=== PATIENT | male | born 1925 | race Caucasian/White ===

== ENCOUNTER → 2016-12-23 | Outpatient (CLI) | payer OTHER ==
[~2016-12-23] MED LIST: AMOX875T PO; Boost PO; CNT PO; DRGTP12 TD; ERGO500011 PO; HYDR-5688 PO; IMD2X PO; PRED10TA PO; RMR15 PO; TPRSR/25 PO
--- NOTE | 2016-12-23 15:11 | DIAGNOSTIC IMAGING REPORT ---
LEFT SHOULDER 3 VIEWS HISTORY: SHOULDER PAIN L COMPARISON: None. FINDINGS: No acute fracture or dislocation within the left shoulder. Calcifications within the supraspinatus tendon consistent with calcific tendinitis mild to moderate osteoarthritis within the glenohumeral and AC joints. Old, healed distal left clavicle fracture. IMPRESSION: 1. No acute fracture or dislocation. 2. Supraspinatus calcific tendinitis. 3. Moderate osteoarthritis. Electronically signed by: Migel Garcia M.D. 12/23/2016 3:10 PM Dictated Date/Time: 12/23/2016 3:09 PM
== END | disposition home or self-care (01) ==
LOC: C.RADPV 14:49
PROVIDERS: ATTEND Family Medicine
DX: M25.512 Pain in left shoulder (principal); M75.32 Calcific tendinitis of left shoulder; M19.012 Primary osteoarthritis, left shoulder

== ENCOUNTER → 2017-01-21 | Outpatient (CLI) | payer OTHER ==
[~2017-01-21] MED LIST changes: +OPTIRAY 320 IV PRN
[2017-01-21 09:07] LABS: BLOOD UREA NITROGEN 17 mg/dl (7-18)
--- NOTE | 2017-01-21 10:36 | DIAGNOSTIC IMAGING REPORT ---
CT ANGIOGRAM OF THE ABDOMEN AND PELVIS CLINICAL HISTORY: Abdominal aortic aneurysm. COMPARISON STUDY: CT angiogram of the abdomen and pelvis dated 02/12/2016. TECHNIQUE: Following the IV administration of 119 cc of Optiray 320, CT angiogram of the abdomen and pelvis was performed from the lung bases the proximal femora. Images are reviewed in the axial, sagittal, and coronal planes. 3-D MIPS images are created and assessed. IV contrast was administered without complication. CT DOSE: 274.66 mGy.cm FINDINGS: Lower chest: The heart is enlarged and without pericardial effusion. Emphysema is suggested in the lung bases. There is dependent atelectasis. No airspace consolidation or pleural effusion is seen. Liver: The contrast-enhanced liver is normal in size, contour, and attenuation. There is no intrahepatic or ductal dilatation. Gallbladder: Mildly distended and grossly unremarkable. Spleen: Normal in size and attenuation noting heterogeneous arterial phase enhancement. A 12 mm low-attenuation lesion in the spleen seen image #71 is unchanged and of doubtful significance. Pancreas: Mildly atrophic and grossly unremarkable. Adrenal glands: Unremarkable. Kidneys: The contrast enhanced kidneys demonstrate cortical atrophy and are without hydronephrosis. The kidneys enhance symmetrically. Abdominal aorta and iliac arteries: There is advanced atherosclerotic calcification of the abdominal aorta and iliac arteries. There is a large bilobed infrarenal abdominal aortic aneurysm. This measures 6.3 cm in AP diameter and 5.9 cm in transverse diameter. The aneurysm sac extends approximately 10 cm in length. No dissection is seen. The iliac arteries are not well opacified. There is aneurysmal dilatation of the common iliac arteries bilaterally. The right common iliac artery measures up to 3.1 cm and the left common iliac artery measures up to 2.0 cm. 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 The celiac trunk, superior mesenteric, and inferior mesenteric arteries are widely patent. Hepatic arterial anatomy is conventional. The splenic artery is patent. There are single bilateral renal arteries which are patent. There is less than 50% stenosis at the origin of the right renal artery. Bowel: There are postoperative changes from right hemicolectomy with ileocolic anastomosis. No bowel obstruction is seen. There is mild colonic diverticulosis without CT evidence of acute diverticulitis. Peritoneum: There is no intraperitoneal free air or abdominal ascites. Lymphadenopathy: None. Pelvic viscera: The prostate gland is diminutive and heterogeneous. Numerous brachytherapy seeds are noted. The bladder wall is thickened and trabeculated consistent with chronic outlet obstruction. Skeletal structures: The skeletal structures are osteopenic. Moderate lumbosacral spondylosis is observed. There are bilateral pars defects at L5 with minimal anterolisthesis at L5-S1. No lytic or blastic bony lesions are seen. Degenerative change is also seen in the sacroiliac joints. There are healed bilateral rib fractures. IMPRESSION: 1. Again seen is a large bilobed infrarenal abdominal aortic aneurysm as detailed above. This measures 6.3 x 5.9 cm, and has minimally increased in size from 02/12/2016 when it measured 5.9 x 5.1 cm at a comparable level. 2. 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 3. 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 4. Cardiomegaly and emphysema. 5. There are postoperative changes from right hemicolectomy with ileocolic anastomosis. No bowel obstruction is seen. 6. The bladder wall is thickened and trabeculated, likely related to chronic outlet obstruction. Electronically signed by: Bart Eng M.D. 01/21/2017 10:34 AM Dictated Date/Time: 01/21/2017 9:40 AM
== END | disposition home or self-care (01) ==
LOC: C.CTS 08:22
PROVIDERS: ATTEND Family Medicine
DX: I71.4 Abdominal aortic aneurysm, without rupture (principal); I72.3 Aneurysm of iliac artery; I71.9 Aortic aneurysm of unspecified site, without rupture; I51.7 Cardiomegaly; J43.9 Emphysema, unspecified

== ENCOUNTER → 2017-04-13 | Outpatient (CLI) | payer OTHER ==
[~2017-04-13] MED LIST changes: +ERGO1CAP41 PO; -ERGO500011 PO; -OPTIRAY 320 IV PRN
[2017-04-13 18:02] LABS: ALT/SGPT 33 U/L (12-78); AST/SGOT 23 U/L (15-37); BLOOD UREA NITROGEN 21 mg/dl (7-18); BUN/CREATININE RATIO 19.1 (10-20); CALCIUM 8.9 mg/dl (8.5-10.1); CARBON DIOXIDE 25 mmol/L (21-32); CHLORIDE 105 mmol/L (98-107); GLUCOSE 116 mg/dl (70-99); POTASSIUM 3.8 mmol/L (3.5-5.1); SODIUM 138 mmol/L (136-145)
[2017-04-13 18:12] LABS: ALB/GLOB RATIO 0.6 (0.9-2); ALKALINE PHOSPHATASE 539 U/L (45-117)
--- NOTE | 2017-04-21 12:49 | CODING QUERY MEDICAL NECESSITY ---
CQSUPPORTING DIAGNOSIS NEEDED A supporting diagnosis is required for the test/procedure performed on this patient in order for us to be reimbursed by the patient's insurance. Please provide a supporting diagnosis for the following test/procedure listed below next to the test name along with your signature. *If there is no additional diagnosis for this patient that would support the following test/procedure please document that below next to the test/procedure. Test(s)/Procedure(s) that require a supporting diagnosis: DOS 04/13/17 VITAMIN B12 TEST Provider Signature: Date: Thank you Tata Ron [facility] Information Management Once completed, please kindly fax back to [phone] For questions please call [phone]
== END | disposition home or self-care (01) ==
LOC: C.LABPVFM 16:06
PROVIDERS: ATTEND Family Medicine
DX: F09 Unspecified mental disorder due to known physiological condition (principal); R39.9 Unspecified symptoms and signs involving the genitourinary system; R82.99 Other abnormal findings in urine

== ENCOUNTER → 2017-04-15 | Outpatient (CLI) | payer OTHER ==
[2017-04-21 05:32] LABS: ALK PHOS ISO-INTESTINE 0 % (1-24); ALK PHOS ISO-LIVER 83 % (25-69); ALK PHOS ISO-PLACENTAL 0 % (<=0); ALK PHOS MACROHEPATIC 0 % (<=0); ALP (ALK P'TASE) 349 U/L (40-115)
[2017-04-26 11:09] LABS: O&P SOURCE OTHER-STOOL
== END | disposition home or self-care (01) ==
LOC: C.LABPVFM 12:56
PROVIDERS: ATTEND Family Medicine
DX: R19.7 Diarrhea, unspecified (principal); R79.89 Other specified abnormal findings of blood chemistry

== ENCOUNTER 2017-04-18 10:20 | Inpatient (IN) | payer OTHER ==
[~2017-04-18] VITALS: Ht 167.6 cm; Wt 52.2 kg
[2017-04-18] MEDS ORDERED: SODIUM CHLORIDE 0.9% 1000ML 1,000 ML IV STA (10:41)
--- NOTE | 2017-04-18 10:47 | EMERGENCY ROOM VISIT NOTE ---
History Report prepared by Martha: Alycia Hampton Under the Supervision of: Dr. Asim Cain M.D. First contact with patient: 10:35 Chief Complaint: GI ASSESSMENT Stated Complaint: NOT EATING,DRINKING, DIARRHEA,CHEST/ABD PAIN Nursing Triage Summary: pt daughter reports that pt has hx of dementia and has had diarrhea x 1 month. pt has seen pcp and had testing completed as out patient. History of Present Illness The patient is an 89 year old male who presents to the Emergency Room with complaints of persistent diarrhea for the past month. He currently rates his discomfort as a 6/10 in severity. Per the patient's daughter in law, the patient has had a decrease in appetite and fluid intake. She states that the patient has had blood work and stool samples taken, noting that the stool sample was normal, but something was noted about his kidney function. The patient's daughter in law states that the patient was told to drink more fluids. She states that the patient's stool and urine have both been red. The patient reports abdominal pain today and his daughter in law notes that he has been short of breath recently. The patient reports a history of previous hernia repairs, but denies any history of an appendectomy or cholecystectomy. The patient's daughter in law notes that the patient has a history of colon cancer, prostate cancer, and AAA. Source of History: patient, family (daughter in law) Onset: past month Position: other (global) Symptom Intensity: 6/10 Quality: other (diarrhea) Timing: other (persistent) Associated Symptoms: + SOB, + abdominal pain Note: Associated Symptoms: red stool and red urine, decrease in fluid intake and appetite. Review of Systems See HPI for pertinent positives & negatives. A total of 10 systems reviewed and were otherwise negative. Past Medical & Surgical Medical Problems: (1) Cataract Nos (2) colitis (3) Diverticulosis Colon (W/O Ment Of Hemorrhage) (4) Hx-Prostatic Malignancy (5) Ulcerative Colitis, Unspecified Family History Noncontributory secondary to age. Social History Smoking Status: Former Smoker Marital Status: Housing Status: lives with family Occupation Status: employed Current/Historical Medications Scheduled Metoprolol Succinate (Metoprolol Succinate ER), 25 MG PO DAILY Allergies Coded Allergies: No Known Allergies (Verified , 04/18/17) Physical Exam Vital Signs Date Time Temp Pulse Resp B/P (MAP) Pulse Ox O2 Delivery O2 Flow Rate FiO2 04/18/17 13:30 82 16 114/67 95 Room Air 04/18/17 13:00 97 Room Air 04/18/17 12:10 85 04/18/17 11:22 82 04/18/17 10:27 37.0 108 20 101/63 97 Room Air Physical Exam GENERAL: Patient is elderly, appearing, cachectic, unwell appearing HEENT: No acute trauma, normocephalic atraumatic, dehydrating appearing, no nasal congestion, no scleral icterus. NECK: No stridor, no adenopathy, no meningismus, trachea is midline. LUNGS: No dyspnea. Clear to auscultation and equal bilaterally. No wheeze, no rhonchi. HEART: Mildly tachycardic rate, regular rhythm. Mild systolic murmur. No rubs , gallops appreciated. ABDOMEN: Large pulsatile abdominal mass, mild tenderness to light palpation of the entire abdomen. Soft, bowel sounds positive, no peritonitis. BACK: No midline tenderness, no CVA tenderness EXTREMITIES: Normal motion all extremities, no cyanosis, no edema. NEUROLOGIC: Alert and oriented, no acute motor or sensory deficits, no focal weakness, cranial nerves grossly intact. SKIN: No rash, no jaundice, no diaphoresis. Medical Decision & Procedures ER Provider Diagnostic Interpretation: Radiology results and stated below per my review and radiologist interpretation: CHEST ONE VIEW PORTABLE HISTORY: 89 years-old Male Generalized Weakness acute chest and abdominal pain with weakness and diarrhea. Patient refuses to eat or drink. COMPARISON: CTA 01/21/2017, chest radiograph 02/21/2014 TECHNIQUE: Portable upright AP view of the chest FINDINGS: Cardiac silhouette is within normal limits. There is atherosclerosis of the aorta. No pneumothorax, pleural effusion or focal airspace consolidation. Suture material is seen at the level of the left lung base with subsegmental pleural parenchymal scarring. Degenerative changes are seen about the bilateral shoulders. IMPRESSION: No acute cardiopulmonary process. The above report was generated using voice recognition software. It may contain grammatical, syntax or spelling errors. Electronically signed by: Mitchell Rollins M.D. 04/18/2017 11:21 AM Dictated Date/Time: 04/18/2017 11:19 AM ABD/PELVIS IV CONTRAST ONLY HISTORY: 89 years-old Male diffuse abdominal pain. h/o colon ca acute generalized abdominal pain with history of colon cancer. Initial exam. COMPARISON: CT angiogram 01/21/2017. TECHNIQUE: Multiple axial CT images of the abdomen and pelvis were obtained following the intravenous administration of 93 mL Optiray 320. A dose lowering technique was used consistent with the principals of TONI. FINDINGS: Study is limited secondary to streak and beam arcing artifact from positioning of patient's upper extremities across the midabdomen and additionally secondary to patient motion. There is mild dependent bibasilar atelectasis. There is a calcified granuloma of the inferior segment lingula. No pneumoperitoneum is identified. Inferior cardiac chambers are mildly enlarged. Aortic annular calcifications are present. The liver and adrenal glands are within normal limits. Unchanged nonspecific likely benign 1.2 cm low attenuating circumscribed lesion of the mid spleen is again seen. Gallbladder is mildly distended without evidence of cholelithiasis. The common bile duct is mildly dilated, 10 mm which is nonspecific. Low attenuating lesions of the kidneys bilaterally, most which are subcentimeter suggest cysts. Ureters and urinary bladder are unremarkable. brachy therapy seeds are seen within the prostate. Extensive mixed plaquing involves the abdominal aorta. Bilobed fusiform aneurysmal dilation of the infrarenal bone aorta is again seen measuring up to 6.5 x 6.2 cm, previously 6.4 x 6.0 cm, likely stable in size allowing for difference in technique. No evidence of aneurysmal rupture. In mucosal dilation of the right common iliac artery, 3.0 cm and aneurysmal dilation of the internal iliac artery, 3.3 cm both appear unchanged. Additionally, there is unchanged mild intervertebral dilation of the celiac trunk. There is no bulky retroperitoneal adenopathy. There is no small bowel obstruction. Moderate circumferential wall thickening with mucosal hyperemia is noted involving the majority of the colon, most severe within the descending and rectosigmoid portions. There has been prior right hemicolectomy with ileocolic anastomosis. Air fluid levels are seen throughout the colon suggesting diarrheal state. Mild adenopathy of the upper abdomen measuring up to 6 mm in short axis may be reactive. There is moderate associated inflammatory stranding. Soft tissues are unremarkable. Multilevel severe degenerative changes of the spine are seen. Bones are osteopenic. Healed bilateral rib fractures noted. IMPRESSION: 1. Moderate circumferential wall thickening with mucosal hyperemia and surrounding inflammatory stranding involving the majority of the colon, greatest within the descending and sigmoid portions is compatible with colitis, likely from infectious or inflammatory etiology. Associated air-fluid levels throughout the colon suggests concomitant diarrheal state. 2. No pneumoperitoneum or bowel obstruction. 3. 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 This appears stable from comparison study 01/21/2017. 4. Prior right hemicolectomy with ileocolic anastomosis. 5. Additional incidental findings as above. The above report was generated using voice recognition software. It may contain grammatical, syntax or spelling errors. Electronically signed by: Mitchell Rollins M.D. 04/18/2017 12:07 PM Dictated Date/Time: 04/18/2017 11:53 AM Laboratory Results 04/18/17 11:02 Red Blood Count 3.55, Mean Corpuscular Volume 92.7, Mean Corpuscular Hemoglobin 31.5, Mean Corpuscular Hemoglobin Concent 34.0, Mean Platelet Volume 8.3, Neutrophils (%) (Auto) 77.1, Lymphocytes (%) (Auto) 10.3, Monocytes (%) (Auto) 11.6, Eosinophils (%) (Auto) 0.1, Basophils (%) (Auto) 0.1, Neutrophils # (Auto ) 10.14, Lymphocytes # (Auto) 1.36, Monocytes # (Auto) 1.53, Eosinophils # (Auto ) 0.01, Basophils # (Auto) 0.01 04/18/17 10:55 Test 04/18/17 10:55 04/18/17 11:02 04/18/17 11:04 Est Creatinine Clear Calc Drug Dose 38.8 ml/min Estimated GFR () 78.9 Estimated GFR (Non- 68.1 BUN/Creatinine Ratio 21.3 (10-20) Calcium Level 8.1 mg/dl (8.5-10.1) Phosphorus Level 3.1 mg/dl (2.5-4.9) Magnesium Level 2.1 mg/dl (1.8-2.4) Total Bilirubin 0.8 mg/dl (0.2-1) Direct Bilirubin 0.4 mg/dl (0-0.2) Aspartate Amino Transf (AST/SGOT) 11 U/L (15-37) Alanine Aminotransferase (ALT/SGPT) 14 U/L (12-78) Alkaline Phosphatase 261 U/L (45-117) Total Creatine Kinase 36 U/L (39-308) Creatine Kinase MB 1.2 ng/ml (0.5-3.6) Creatine Kinase MB Ratio 3.3 (0-3.0) Troponin I < 0.015 ng/ml (0-0.045) Total Protein 5.7 gm/dl (6.4-8.2) Albumin 1.8 gm/dl (3.4-5.0) Lipase 48 U/L (73-393) Thyroid Stimulating Hormone (TSH) 1.000 uIu/ml (0.300-4.500) White Blood Count 13.16 K/uL (4.8-10.8) Red Blood Count 3.55 M/uL (4.7-6.1) Hemoglobin 11.2 g/dL (14.0-18.0) Hematocrit 32.9 % (42-52) Mean Corpuscular Volume 92.7 fL (80-100) Mean Corpuscular Hemoglobin 31.5 pg (25-34) Mean Corpuscular Hemoglobin Concent 34.0 g/dl (32-36) Platelet Count 388 K/uL (130-400) Mean Platelet Volume 8.3 fL (7.4-10.4) Neutrophils (%) (Auto) 77.1 % Lymphocytes (%) (Auto) 10.3 % Monocytes (%) (Auto) 11.6 % Eosinophils (%) (Auto) 0.1 % Basophils (%) (Auto) 0.1 % Neutrophils # (Auto) 10.14 K/uL (1.4-6.5) Lymphocytes # (Auto) 1.36 K/uL (1.2-3.4) Monocytes # (Auto) 1.53 K/uL (0.11-0.59) Eosinophils # (Auto) 0.01 K/uL (0-0.5) Basophils # (Auto) 0.01 K/uL (0-0.2) RDW Standard Deviation 48.5 fL (36.4-46.3) RDW Coefficient of Variation 14.3 % (11.5-14.5) Immature Granulocyte % (Auto) 0.8 % Immature Granulocyte # (Auto) 0.11 K/uL (0.00-0.02) Toxic Granulation 3+ Dohle Bodies 2+ Prothrombin Time 11.8 SECONDS (9.0-12.0) Prothromb Time International Ratio 1.1 (0.9-1.1) Activated Partial Thromboplast Time 32.7 SECONDS (21.0-31.0) Partial Thromboplastin Ratio 1.3 Bedside Hemoglobin 11.2 g/dl (14.0-18.0) Bedside Hematocrit 33 % (42-52) Bedside Sodium 136 mEq/L (135-144) Bedside Potassium 3.4 mEq/L (3.3-5.0) Bedside Chloride 101 mEq/L (101-112) Bedside Total CO2 22 mEq/l (24-31) Anion Gap 17.0 mmol/L (16-25) Bedside Blood Urea Nitrogen 20 mg/dl (7-18) Bedside Creatinine 1.1 mg/dl (0.6-1.3) Bedside Glucose (other) 121 mg/dl (70-99) Bedside Ionized Calcium (Rosemary) 1.16 mmol/l (1.12-1.32) Laboratory results as reviewed by me. Medications Administered Medications (Trade) Dose Ordered Sig/Joey Route Start Time Stop Time Status Last Admin Dose Admin Sodium Chloride 1,000 ml @ 999 mls/hr Q1H1M STAT IV 04/18/17 10:41 04/18/17 11:41 DC 04/18/17 11:21 999 MLS/HR ECG Indication: abdominal pain, weakness Rate (beats per minute): 86 Rhythm: normal sinus Findings: PVC, no acute ischemic change ED Course 1036: The patient was evaluated in room B10. A complete history and physical exam was performed. 1041: Ordered Sodium Chloride 1000 ml @ 999 mls/hr IV. 1223: I reevaluated the patient and he is unchanged. I discussed all the exam findings with him and his family. I discussed home vs. inpatient management with the patient and his family and they would like to discuss the case with the hospitalist. 1234: I discussed the patients case with Dr. Ferguson [facility] [place]. He is going to come evaluate the patient. Medical Decision Differential: Sepsis, Infectious (UTI/Pneumonia/Meningitis/etc), Metabolic/ Electrolyte Abnormality, Cardiac, Hepatic, Endocrine, Toxicologic, Neurologic, amongst other pathologies entertained. 89 yr old cachectic unhealthy male with some dementia [place]. Daughter in law is not comfortable with him at home and notes that he is not eating, which I agree with her. His albumen is quite low confirming his poor nutritional status. He is dehydrated and likely will get worse given colitis. Just had negative Cdiff study. Without significant wbc elevation nor fever this is more likely viral but will need further monitoring/evaluation. Given his such poor status I do not feel that placement at this is time and that bringing him in first is necessary to tune up. Daughter in law agreeable to this plan. AAA unchanged. Medication Reconcilliation Current Medication List: was personally reviewed by me Blood Pressure Screening Patient's blood pressure: Normal blood pressure Blood pressure disposition: Did not require urgent referral Consults Time Called: 1227 Consulting Physician: LILLI Hsu Returned Call: 1234 I discussed the patients case with LILLI Hsu. He is going to come evaluate the patient. Impression Primary Impression: Cachexia Additional Impressions: Dehydration Malnutrition Failure to thrive Colitis Scribe Attestation The scribe's documentation has been prepared under my direction and personally reviewed by me in its entirety. I confirm that the note above accurately reflects all work, treatment, procedures, and medical decision making performed by me. Departure Information Dispostion Being Evaluated By Hospitalist Referrals Jn Restrepo M.D. (PCP) Problem Qualifiers
[2017-04-18] MEDS ORDERED: OPTIRAY 320 IV PRN (11:00)
[2017-04-18] MEDS ORDERED: TPRSR/25 PO (11:02)
[2017-04-18 11:10] LABS: HEMATOCRIT 32.9 % (42-52); MEAN CELL VOLUME 92.7 fL (80-100); MEAN CORPUSCULAR HEMOGLOBIN 31.5 pg (25-34); MEAN PLATELET VOLUME 8.3 fL (7.4-10.4); PLATELET COUNT 388 K/uL (130-400); RED BLOOD COUNT 3.55 M/uL (4.7-6.1); WHITE BLOOD COUNT 13.16 K/uL (4.8-10.8)
[2017-04-18 11:18] LABS: INR 1.1 (0.9-1.1); PARTIAL THROMBOPLASTIN RATIO 1.3; PROTHROMBIN TIME (PATIENT) 11.8 SECONDS (9.0-12.0)
[2017-04-18 11:21] LABS: ISTAT CREATININE 1.1 mg/dl (0.6-1.3); ISTAT HEMOGLOBIN 11.2 g/dl (14.0-18.0); ISTAT IONIZED CALCIUM 1.16 mmol/l (1.12-1.32)
--- NOTE | 2017-04-18 11:23 | DIAGNOSTIC IMAGING REPORT ---
CHEST ONE VIEW PORTABLE HISTORY: 89 years-old Male Generalized Weakness acute chest and abdominal pain with weakness and diarrhea. Patient refuses to eat or drink. COMPARISON: CTA 01/21/2017, chest radiograph 02/21/2014 TECHNIQUE: Portable upright AP view of the chest FINDINGS: Cardiac silhouette is within normal limits. There is atherosclerosis of the aorta. No pneumothorax, pleural effusion or focal airspace consolidation. Suture material is seen at the level of the left lung base with subsegmental pleural parenchymal scarring. Degenerative changes are seen about the bilateral shoulders. IMPRESSION: No acute cardiopulmonary process. The above report was generated using voice recognition software. It may contain grammatical, syntax or spelling errors. Electronically signed by: Mitchell Rollins M.D. 04/18/2017 11:21 AM Dictated Date/Time: 04/18/2017 11:19 AM
[2017-04-18 11:29] LABS: ALT/SGPT 14 U/L (12-78); AST/SGOT 11 U/L (15-37); BLOOD UREA NITROGEN 21 mg/dl (7-18); BUN/CREATININE RATIO 21.3 (10-20); CALCIUM 8.1 mg/dl (8.5-10.1); CARBON DIOXIDE 24 mmol/L (21-32); CHLORIDE 106 mmol/L (98-107); CREATININE 0.98 mg/dl (0.60-1.40); GLUCOSE 120 mg/dl (70-99); MAGNESIUM 2.1 mg/dl (1.8-2.4); POTASSIUM 3.4 mmol/L (3.5-5.1); SODIUM 137 mmol/L (136-145)
[2017-04-18 11:35] LABS: BASO % 0.1 %; BASO ABS # 0.01 K/uL (0-0.2); COMPLETE YES; DOHLE BODIES 2+; EOS % 0.1 %; IG% 0.8 %; LYMPH % 10.3 %; LYMPH ABS # 1.36 K/uL (1.2-3.4); MONO % 11.6 %; NEUT % 77.1 %; TOXIC GRANULATION 3+
[2017-04-18 11:40] LABS: ALKALINE PHOSPHATASE 261 U/L (45-117); CKMB/CK RATIO 3.3 (0-3.0); PHOSPHORUS 3.1 mg/dl (2.5-4.9)
--- NOTE | 2017-04-18 12:08 | DIAGNOSTIC IMAGING REPORT ---
ABD/PELVIS IV CONTRAST ONLY HISTORY: 89 years-old Male diffuse abdominal pain. h/o colon ca acute generalized abdominal pain with history of colon cancer. Initial exam. COMPARISON: CT angiogram 01/21/2017. TECHNIQUE: Multiple axial CT images of the abdomen and pelvis were obtained following the intravenous administration of 93 mL Optiray 320. A dose lowering technique was used consistent with the principals of TONI. FINDINGS: Study is limited secondary to streak and beam arcing artifact from positioning of patient's upper extremities across the midabdomen and additionally secondary to patient motion. There is mild dependent bibasilar atelectasis. There is a calcified granuloma of the inferior segment lingula. No pneumoperitoneum is identified. Inferior cardiac chambers are mildly enlarged. Aortic annular calcifications are present. The liver and adrenal glands are within normal limits. Unchanged nonspecific likely benign 1.2 cm low attenuating circumscribed lesion of the mid spleen is again seen. Gallbladder is mildly distended without evidence of cholelithiasis. The common bile duct is mildly dilated, 10 mm which is nonspecific. Low attenuating lesions of the kidneys bilaterally, most which are subcentimeter suggest cysts. Ureters and urinary bladder are unremarkable. brachy therapy seeds are seen within the prostate. Extensive mixed plaquing involves the abdominal aorta. Bilobed fusiform aneurysmal dilation of the infrarenal bone aorta is again seen measuring up to 6.5 x 6.2 cm, previously 6.4 x 6.0 cm, likely stable in size allowing for difference in technique. No evidence of aneurysmal rupture. In mucosal dilation of the right common iliac artery, 3.0 cm and aneurysmal dilation of the internal iliac artery, 3.3 cm both appear unchanged. Additionally, there is unchanged mild intervertebral dilation of the celiac trunk. There is no bulky retroperitoneal adenopathy. There is no small bowel obstruction. Moderate circumferential wall thickening with mucosal hyperemia is noted involving the majority of the colon, most severe within the descending and rectosigmoid portions. There has been prior right hemicolectomy with ileocolic anastomosis. Air fluid levels are seen throughout the colon suggesting diarrheal state. Mild adenopathy of the upper abdomen measuring up to 6 mm in short axis may be reactive. There is moderate associated inflammatory stranding. Soft tissues are unremarkable. Multilevel severe degenerative changes of the spine are seen. Bones are osteopenic. Healed bilateral rib fractures noted. IMPRESSION: 1. Moderate circumferential wall thickening with mucosal hyperemia and surrounding inflammatory stranding involving the majority of the colon, greatest within the descending and sigmoid portions is compatible with colitis, likely from infectious or inflammatory etiology. Associated air-fluid levels throughout the colon suggests concomitant diarrheal state. 2. No pneumoperitoneum or bowel obstruction. 3. 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 This appears stable from comparison study 01/21/2017. 4. Prior right hemicolectomy with ileocolic anastomosis. 5. Additional incidental findings as above. The above report was generated using voice recognition software. It may contain grammatical, syntax or spelling errors. Electronically signed by: Mitchell Rollins M.D. 04/18/2017 12:07 PM Dictated Date/Time: 04/18/2017 11:53 AM
[2017-04-18 13:00] VITALS: O2SAT 97; Ht 167.6 cm; Wt 52.2 kg
[2017-04-18] MEDS ORDERED: ALUMINUM/MAGNESIUM/SIMETH (MAALOX MAX) 30 ML UDC PO PRN (14:00)
[2017-04-18] MEDS ORDERED: MAGNESIUM HYDROXIDE SUSP 30 ML UDC PO PRN (14:00)
[2017-04-18 14:18] LABS: CHOLESTEROL/HDL RATIO 3.3
--- NOTE | 2017-04-18 14:47 | History and Physical ---
History & Physical Date & Time of Service: Apr 18, 2017 at 14:00 Chief Complaint: Not Eating,Drinking, Diarrhea,Chest/Abd Pain Primary Care Physician: Jn Restrepo M.D. History of Present Illness Source: patient, family 11-year-old male with past medical history of the ulcerative colitis in the 1970s colon cancer in 2003 status post resection, 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 Patient also has history of prostate cancer status post seeding. [place]. About 1 week ago he was taking to ER due to change in color of the urine. Initial workup was negative and he was advised to drink more fluids and eat as much as he can. Daughter reported that he has been going to the bathroom with diarrhea about 10 times every day for the past month. no blood in stool was detected. Stool C. difficile and stool cultures were negative on April 15. In the ED patient is a poor historian due to Dementia. His daughter at his bedside she was giving all the history. ED physician requested a CT and abdomen with contrast that revealed thickened colon wall wall/colitis. Patient will be admitted for further evaluation and management/IV hydration. Social History Smoking Status: Former Smoker Marital Status: Housing status: lives with family Occupational Status: employed Immunizations History of Influenza Vaccine: Yes Influenza Vaccine Date: May 16, 2010 History of Tetanus Vaccine?: No History of Pneumococcal: No History of Hepatitis B Vaccine: No Multi-Drug Resistant Organisms History of MDRO: No Allergies Coded Allergies: No Known Allergies (Verified , 04/18/17) Home Medications Scheduled Metoprolol Succinate (Metoprolol Succinate ER), 25 MG PO DAILY Review of Systems Constitutional: + weakness, + fatigue, No fever, No chills, No sweats, No weight loss, No problem reported ENT: No hearing loss, No unusual epistaxis, No nasal symptoms, No sore throat, No tinnitus, No dental problems, No trouble swallowing, No problem reported Respiratory: No cough, No sputum, No wheezing, No shortness of breath, No dyspnea on exertion, No dyspnea at rest, No hemoptysis, No problem reported Cardiovascular: + chest pain, No orthopnea, No PND, No edema, No claudication, No palpitations, No problem reported Abdomen: + pain, + diarrhea, No nausea, No vomiting, No constipation, No GI bleeding, No problem reported Musculoskeletal: No joint pain, No muscle pain, No swelling, No calf pain, No problem reported Genitourinary - Male: No hematuria, No dysuria, No urinary frequency, No urinary urgency, No urinary hesitancy, No urinary retention, No urinary incontinence, No penile discharge, No lesions, No impotence, No problem reported Neurologic: No memory loss, No paralysis, No weakness, No numbness/tingling, No vertigo, No balance problems, No problem reported Psychiatric: No depression symptoms, No anhedonism, No anxiety, No insomnia, No substance abuse, No problem reported Endocrine: No fatigue, No excessive thirst, No excessive urination, No problem reported Hematologic / Lymphatic: No abnormal bleeding/bruising, No clotting problems, No swollen lymph nodes, No night sweats, No problem reported Integumentary: No rash, No itch, No new/changing skin lesions, No color change , No bleeding, No problem reported Allergic / Immunologic: No environmental allergies, No seasonal allergies, No pet sensitivities, No food allergies, No hives, No frequent infections, No poor healing, No prolonged convalescence, No problem reported Physical Exam Vital Signs Date Time Temp Pulse Resp B/P (MAP) Pulse Ox O2 Delivery O2 Flow Rate FiO2 04/18/17 13:30 82 16 114/67 95 Room Air 04/18/17 13:00 97 Room Air 04/18/17 12:10 85 04/18/17 11:22 82 04/18/17 10:27 37.0 108 20 101/63 97 Room Air General Appearance: no apparent distress, + cachetic Head: normocephalic, atraumatic Eyes: normal inspection, EOMI ENT: normal ENT inspection, hearing grossly normal Neck: supple Respiratory/Chest: chest non-tender, lungs clear, normal breath sounds, no respiratory distress, no accessory muscle use Cardiovascular: regular rate, rhythm, no edema, + systolic murmur (2/6 soft) Abdomen/GI: normal bowel sounds, non tender, soft, + pertinent finding ( pulsatile mass) Back: normal inspection, no CVA tenderness, no muscle spasm, normal range of motion Extremities/Musculoskelatal: normal inspection, no calf tenderness, normal capillary refill, no pedal edema Neurologic/Psych: sweet potato disintegrator II-XII nml as tested, no motor/sensory deficits, alert, normal mood/affect, normal reflexes, + pertinent finding (oriented X 2 with short term memory loss) Skin: normal color, warm/dry, no rash Diagnostics Laboratory Results Results Past 24 Hours Test 04/18/17 10:55 04/18/17 11:02 04/18/17 11:04 04/18/17 13:47 Range/Units Sodium Level 137 136-145 mmol/L Potassium Level 3.4 3.5-5.1 mmol/L Chloride Level 106 98-107 mmol/L Carbon Dioxide Level 24 21-32 mmol/L Anion Gap 7.0 17.0 16-25 mmol/L Blood Urea Nitrogen 21 7-18 mg/dl Creatinine 0.98 0.60-1.40 mg/dl Est Creatinine Clear Calc Drug Dose 38.8 ml/min Estimated GFR () 78.9 Estimated GFR (Non- 68.1 BUN/Creatinine Ratio 21.3 10-20 Random Glucose 120 70-99 mg/dl Calcium Level 8.1 8.5-10.1 mg/dl Phosphorus Level 3.1 2.5-4.9 mg/dl Magnesium Level 2.1 1.8-2.4 mg/dl Total Bilirubin 0.8 0.2-1 mg/dl Direct Bilirubin 0.4 0-0.2 mg/dl Aspartate Amino Transf (AST/SGOT) 11 15-37 U/L Alanine Aminotransferase (ALT/SGPT) 14 12-78 U/L Alkaline Phosphatase 261 45-117 U/L Total Creatine Kinase 36 39-308 U/L Creatine Kinase MB 1.2 0.5-3.6 ng/ml Creatine Kinase MB Ratio 3.3 0-3.0 Troponin I < 0.015 0-0.045 ng/ml Total Protein 5.7 6.4-8.2 gm/dl Albumin 1.8 3.4-5.0 gm/dl Lipase 48 73-393 U/L Thyroid Stimulating Hormone (TSH) 1.000 0.300-4.500 uIu/ml White Blood Count 13.16 4.8-10.8 K/uL Red Blood Count 3.55 4.7-6.1 M/uL Hemoglobin 11.2 14.0-18.0 g/dL Hematocrit 32.9 42-52 % Mean Corpuscular Volume 92.7 80-100 fL Mean Corpuscular Hemoglobin 31.5 25-34 pg Mean Corpuscular Hemoglobin Concent 34.0 32-36 g/dl Platelet Count 388 130-400 K/uL Mean Platelet Volume 8.3 7.4-10.4 fL Neutrophils (%) (Auto) 77.1 % Lymphocytes (%) (Auto) 10.3 % Monocytes (%) (Auto) 11.6 % Eosinophils (%) (Auto) 0.1 % Basophils (%) (Auto) 0.1 % Neutrophils # (Auto) 10.14 1.4-6.5 K/uL Lymphocytes # (Auto) 1.36 1.2-3.4 K/uL Monocytes # (Auto) 1.53 0.11-0.59 K/uL Eosinophils # (Auto) 0.01 0-0.5 K/uL Basophils # (Auto) 0.01 0-0.2 K/uL RDW Standard Deviation 48.5 36.4-46.3 fL RDW Coefficient of Variation 14.3 11.5-14.5 % Immature Granulocyte % (Auto) 0.8 % Immature Granulocyte # (Auto) 0.11 0.00-0.02 K/uL Toxic Granulation 3+ Dohle Bodies 2+ Prothrombin Time 11.8 9.0-12.0 SECONDS Prothromb Time International Ratio 1.1 0.9-1.1 Activated Partial Thromboplast Time 32.7 21.0-31.0 SECONDS Partial Thromboplastin Ratio 1.3 Bedside Hemoglobin 11.2 14.0-18.0 g/dl Bedside Hematocrit 33 42-52 % Bedside Sodium 136 135-144 mEq/L Bedside Potassium 3.4 3.3-5.0 mEq/L Bedside Chloride 101 101-112 mEq/L Bedside Total CO2 22 24-31 mEq/l Bedside Blood Urea Nitrogen 20 7-18 mg/dl Bedside Creatinine 1.1 0.6-1.3 mg/dl Bedside Glucose (other) 121 70-99 mg/dl Bedside Ionized Calcium (Rosemary) 1.16 1.12-1.32 mmol/l Impression Assessment and Plan 89 years old man with past medical 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 Also has a large abdominal aortic aneurysm. Presented with intermittent chest pain and abdominal pain with diarrhea for the last month. beltre-Colitis, mainly in the descending colon Telemetry IV hydration Cipro/Flagyl Repeat stool studies including C. difficile Check blood cell and red blood cells in stool Chest pain rule out ACS Possible ischemia/history is limited unable to ensure his stable angina Plan serial cardiac enzymes 2D Echo of due to the presence of systolic murmur prefitter doors consult Severe protein calorie malnutrition Start patient on nutritional supplement AAA with extensive plaque, measured 6.5 x 6.2 cm, previously 6.4 x 6.0 cm today on 01/21/17 continue metoprolol start low dose lipitor ( D?W daughter ) Dyslipidemia, By history, patient is taking no medications Will obtain lipid panel Deep slight worsening in his AAA dimensions, will start low-dose of lipitor We will need to check CK and LFTs in 2 weeks as an outpatient Prostate cancer status post seeding Check urine analysis and urine culture Colon cancer status post resection 2003 Check occult blood in stool Arthritis Tylenol for pain History of hernia repair No obstructed or recurrent hernia on exam History of appendectomy No intestinal obstruction or adhesions on CT abdomen Patient is currently limited code , no intubation or CPR heparin SQ for DVT prophylaxis Advanced Directives Existing Living Will: Yes Existing Power of Mds Coordinator: Yes Resuscitation Status FULL NO CARDIOV/MECH MIHIR VTE Prophylaxis VTE Risk Assessment Done? Y/N: Yes Risk Level: Moderate Given or contraindicated: Unfractionated heparin SQ
[2017-04-18 14:58] VITALS: BP 130/71; PULSE 100; TEMP 36.9; O2SAT 96
[2017-04-18] MEDS: SODIUM CHLORIDE 0.9% 1000ML 1,000 ML IV SCH (15:21)
[2017-04-18 15:44] VITALS: BP 108/67; PULSE 92; TEMP 37; O2SAT 96
[2017-04-18 16:00] VITALS: O2SAT 96
[2017-04-18] MEDS: CIPROFLOXACIN / D5W 200 MG in PREMIXED IN D5W 100 ML IV SCH ×2 (16:20→20:45)
[2017-04-18] MEDS: ATORVASTATIN 10 MG TAB PO SCH (16:24)
[2017-04-18] MEDS: METRONIDAZOLE / NSS 500 MG in PREMIXED NSS 100 ML IV SCH ×2 (17:27→20:45)
[2017-04-18 19:38] VITALS: BP 117/71; PULSE 106; TEMP 37.1; O2SAT 94
[2017-04-18] MEDS: HEPARIN SOD 5000 UNIT/0.5 ML CARP SQ SCH (20:45)
[2017-04-18 21:36] LABS: MANUAL MICROSCOPIC REQUIRED? NO; REVIEW REQ? NO; URINE APPEARANCE CLEAR (CLEAR); URINE COLOR DK YELLOW; URINE NITRITE NEG (NEG); URINE SPECIFIC GRAVITY > 1.045 (1.000-1.030); UROBILINOGEN NEG (NEG); ZZUR CULT IF INDIC CLEAN CATCH NO
[2017-04-18 21:38] LABS: URINE BILIRUBIN NEG (NEG)
[2017-04-18 23:38] VITALS: BP 100/62; PULSE 106; TEMP 36.9; O2SAT 91
[2017-04-19] VITALS (12 sets, daily range): BP systolic 98–131; BP diastolic 62–73; PULSE 68–97; TEMP 36.6–37.2; O2SAT 93–96
[2017-04-19 03:42] LABS: HEMATOCRIT 33.5 % (42-52); MEAN CELL VOLUME 93.3 fL (80-100); MEAN CORPUSCULAR HEMOGLOBIN 30.1 pg (25-34); MEAN CORPUSCULAR HGB CONC 32.2 g/dl (32-36); MEAN PLATELET VOLUME 8.4 fL (7.4-10.4); PLATELET COUNT 399 K/uL (130-400); RED BLOOD COUNT 3.59 M/uL (4.7-6.1); WHITE BLOOD COUNT 15.22 K/uL (4.8-10.8)
[2017-04-19 04:09] LABS: ALT/SGPT 13 U/L (12-78); AST/SGOT 14 U/L (15-37); BLOOD UREA NITROGEN 19 mg/dl (7-18); BUN/CREATININE RATIO 21.9 (10-20); CALCIUM 7.8 mg/dl (8.5-10.1); CARBON DIOXIDE 22 mmol/L (21-32); CHLORIDE 110 mmol/L (98-107); CREATININE 0.85 mg/dl (0.60-1.40); GLUCOSE 127 mg/dl (70-99); MAGNESIUM 2.2 mg/dl (1.8-2.4); POTASSIUM 3.3 mmol/L (3.5-5.1); SODIUM 140 mmol/L (136-145)
[2017-04-19 04:16] LABS: ALB/GLOB RATIO 0.4 (0.9-2); ALKALINE PHOSPHATASE 222 U/L (45-117); PHOSPHORUS 2.4 mg/dl (2.5-4.9)
[2017-04-19 04:32] LABS: BASO % 0.1 %; BASO ABS # 0.01 K/uL (0-0.2); COMPLETE YES; DOHLE BODIES 1+; EOS % 0.1 %; IG% 0.5 %; LYMPH % 25.5 %; LYMPH ABS # 3.88 K/uL (1.2-3.4); NEUT % 64.8 %; POLYCHROMASIA 1+; TOXIC GRANULATION 1+
[2017-04-19] MEDS: CIPROFLOXACIN / D5W 200 MG in PREMIXED IN D5W 100 ML IV SCH ×2 (08:07→20:04)
[2017-04-19] MEDS: METOPROLOL SUCC 25MG EXT REL TAB PO SCH (08:08)
[2017-04-19] MEDS: ASPIRIN 81 MG ECTAB PO SCH (08:08)
[2017-04-19] MEDS: ATORVASTATIN 10 MG TAB PO SCH (08:08)
[2017-04-19] MEDS: HEPARIN SOD 5000 UNIT/0.5 ML CARP SQ SCH ×2 (08:11→20:08)
[2017-04-19] MEDS: METRONIDAZOLE / NSS 500 MG in PREMIXED NSS 100 ML IV SCH ×2 (08:11→20:04)
--- NOTE | 2017-04-19 08:52 | ECHOCARDIOGRAM REPORT ---
*NOTICE TO RECEIVING DEMOCRAT AGENCY This information is strictly Confidential and protected under [place] law. [place] law prohibits you from making any further disclosure of this information unless further disclosure is expressly permitted by the written consent of the person to whom it pertains or is authorized by law. A general authorization for the release of medical or other information is not sufficient for this purpose. Hospital accepts no responsibility if the information is made available to any other person, INCLUDING THE PATIENT. Interpretation Summary * Name: SALLY LAU Study Date: 04/19/2017 06:53 AM BP: 124/62 mmHg * Patient Location: C.2T\S\E217\S\1 HR: 100 * : 1925 (M/d/yyyy) Gender: Male Height: 66 in * Age: 89 yrs Ethnicity: CA Weight: 118 lb * Ordering Physician: Kelsey Walsh * Performed By: Cecilia Donald RDCS * * Reason For Study: Chest pain, systolic murmur * BSA: 1.6 m2 * Hyperdynamic left ventricular systolic function. * Left ventricular diastolic dysfunction. * Aortic valve sclerosis. * Mild aortic stenosis. * Mild tricuspid regurgitation. * Trace mitral regurgitation. * Trace aortic regurgitation. * Mildly elevated estimated right ventricular systolic pressure. * -- Conclusions -- * Aortic valve sclerosis moderate, without significant aortic valvular stenosis. Procedure Details * A complete two-dimensional transthoracic echocardiogram was performed (2D, M-mode, Doppler and color flow Doppler). Left Ventricle * The left ventricle is normal in size. * There is normal left ventricular wall thickness. * Ejection Fraction = >70 %. * The left ventricle is hyperdynamic. * A full diastolic examination was done with clinical findings of Class I diastolic dysfunction. * No regional wall motion abnormalities noted. Right Ventricle * The right ventricle is normal in size and function. * The right ventricular systolic function is normal as assessed by tricuspid annular plane systolic excursion (TAPSE) (normal >1.5 cm). Atria * The left atrial size is normal. * Right atrial size is normal. * No ASD detected; PFO is not assessed. Mitral Valve * There is mild mitral annular calcification. * There is no mitral valve stenosis. * There is trace mitral regurgitation. Tricuspid Valve * The tricuspid valve is normal. * There is no tricuspid stenosis. * There is mild tricuspid regurgitation. * Right ventricular systolic pressure is elevated at 30-40mmHg. Aortic Valve * The aortic valve is trileaflet. * Aortic valve sclerosis moderate, without significant aortic valvular stenosis. * No hemodynamically significant valvular aortic stenosis. * Aortic valve area was calculated at 1.7 cm\S\2 using the continuity equation. * Trace aortic regurgitation. Pulmonic Valve * The pulmonic valve is not well visualized. * The pulmonary valve is inadequately visualized, but the Doppler data is adequate for interpretation. * There is no pulmonic valvular stenosis. * There is no pulmonic valvular regurgitation. Great Vessels * The aortic root is normal size. Pericardium/Pleural * There is no pericardial effusion. Great Vessels * Normal inferior vena cava diameter and respiratory variation suggests normal central venous pressure. MMode 2D Measurements and Calculations IVSd 0.87 cm LVIDd 3.8 cm LVIDs 2.2 cm LVPWd 0.98 cm IVS/LVPW 0.88 FS 42.5 % EDV(Teich) 62.9 ml ESV(Teich) 16.2 ml EF(Teich) 74.3 % EDV(cubed) 55.9 ml ESV(cubed) 10.6 ml EF(cubed) 81.0 % LV mass(C)d 106.3 grams LV mass(C)dI 66.5 grams/m\S\2 CO(Teich) 2.1 l/min CI(Teich) 1.3 l/min/m\S\2 SV(Teich) 46.7 ml SI(Teich) 29.2 ml/m\S\2 CO(cubed) 2.0 l/min CI(cubed) 1.3 l/min/m\S\2 SV(cubed) 45.3 ml SI(cubed) 28.3 ml/m\S\2 Ao root diam 3.6 cm Ao root area 10.0 cm\S\2 ACS 1.2 cm LA dimension 3.0 cm asc Aorta Diam 3.3 cm LA/Ao 0.85 LVOT diam 2.0 cm LVOT area 3.2 cm\S\2 LVAd ap4 22.6 cm\S\2 LVLd ap4 7.2 cm EDV(MOD-sp4) 58.1 ml LVAs ap4 10.7 cm\S\2 LVLs ap4 5.8 cm ESV(MOD-sp4) 17.2 ml EF(MOD-sp4) 70.4 % LVAd ap2 21.5 cm\S\2 LVLd ap2 7.6 cm EDV(MOD-sp2) 50.8 ml LVAs ap2 10.4 cm\S\2 LVLs ap2 6.1 cm ESV(MOD-sp2) 15.0 ml EF(MOD-sp2) 70.5 % CO(MOD-sp4) 1.8 l/min CI(MOD-sp4) 1.2 l/min/m\S\2 SV(MOD-sp4) 40.9 ml SI(MOD-sp4) 25.6 ml/m\S\2 CO(MOD-sp2) 1.6 l/min CI(MOD-sp2) 1.0 l/min/m\S\2 SV(MOD-sp2) 35.8 ml SI(MOD-sp2) 22.4 ml/m\S\2 Doppler Measurements and Calculations MV E max balaji 92.6 cm/sec MV A max balaji 116.4 cm/sec MV E/A 0.80 Ao V2 max 153.6 cm/sec Ao max PG 9.4 mmHg Ao max PG (full) 6.7 mmHg KENZIE(V,A) 1.7 cm\S\2 KENZIE(V,D) 1.7 cm\S\2 LV V1 max PG 2.8 mmHg LV V1 max 83.4 cm/sec PA V2 max 145.2 cm/sec PA max PG 8.4 mmHg PA acc slope 821.0 cm/sec\S\2 PA acc time 0.09 sec TR max balaji 274.2 cm/sec PA pr(Accel) 39.4 mmHg
[2017-04-19] MEDS ORDERED: PNEUMOCOCCAL ADMINISTRATION CHARGE ONE (09:00)
[2017-04-19] MEDS ORDERED: PNEUMOCOCCAL POLYSACCHARIDES 25 MCG/0.5 ML VIAL/SYR IM. ONE (09:00)
[2017-04-19] MEDS: SODIUM CHLORIDE 0.9% 1000ML 1,000 ML IV SCH (09:47)
--- NOTE | 2017-04-19 13:16 | CARDIOLOGY CONSULTATION ---
DATE OF CONSULTATION: 04/19/2017 PRIMARY PHYSICIAN: Jn Restrepo MD REFERRING PHYSICIAN: Kelsey Castro MD CONSULTATION: Kings Reyes MD HISTORY OF PRESENT ILLNESS: The patient is an 89-year-old white male. History obtained from the patient, nursing staff, and the chart. The chart indicates that the patient has a history of dementia. At the time of my exam of the patient, he was oriented to name, place, months and year. He answered questions appropriately. He states that he has had 2-3 weeks of loose stools, decreased appetite, and decreased weight. He admits to me that he thinks he may have seen blood in his stools. He has a vaguely described diffuse abdominal discomfort. He does not report any change in the discomfort with bowel movements or meals. No nausea or vomiting. No fevers or chills. He has had decreased oral intake over the past few weeks. He states he has lost 10 pounds in the past 2-3 weeks. He has had episodes of postural lightheadedness over the past 2 weeks. He also states that he has decreased urine output. His urine is of a darker color than usual. He denies to me having had any chest pain. The chart reports that he had a complaint of chest pain, although it was not described in regards to character, intensity, duration, frequency, or precipitating factors. As stated above, the patient denies to me that he has had any chest pain over the past few weeks. He complains of fatigue and weakness over the past few weeks. No orthopnea or PND. No palpitations or syncope. PAST MEDICAL HISTORY: 1. Longstanding history of ulcerative colitis. 2. Status post transverse colon resection in 2003 for adenocarcinoma. 3. Longstanding history of aortic aneurysm and iliac artery aneurysms. The patient has previously declined surgical therapy for his vascular disease. 4. Dyslipidemia. 5. Prostate cancer treated with seeds. The patient denies any history of heart disease. PAST SURGICAL HISTORY: 1. Status post transverse colectomy in 2003. 2. Status post appendectomy. 3. Status post inguinal hernia repair. 4. Status post cataract surgery. SOCIAL HISTORY: The patient lives alone. He states that he is a . He does not smoke cigarettes or drink alcohol. The patient has 2 children. [id number] and son live nearby. Although, the patient does not smoke cigarettes at this time, there is a past history of cigarette smoking. FAMILY HISTORY: Positive for coronary artery disease. ALLERGIES AND ADVERSE DRUG REACTIONS: No known drug allergies. CURRENT MEDICATIONS: Aspirin 81 mg daily, metoprolol succinate ER 25 mg daily, subQ heparin 5000 units q. 12 hours, metronidazole 500 mg IV b.i.d., ciprofloxacin 200 mg IV b.i.d., atorvastatin 10 mg daily, normal saline 50 mL per hour, p.r.n. Maalox, and p.r.n. acetaminophen. REVIEW OF SYSTEMS: 1. As above. 2. Dry mouth. 3. Full dentures. 4. No other HEENT complaints. 5. No dysuria. Urinary incontinence. Urinary urgency. 6. No complaints of calf pain or swelling. No peripheral edema. 7. No complaints of leg pain. 8. No focal motor weakness. He does complain of diffuse weakness. 9. The patient states that he just wants to "move down the road." When this was discussed with him, he is implying that he is ready to . He does not want any aggressive medical measures performed. Specifically, he refuses any surgical invasive treatment for his vascular disease. PHYSICAL EXAMINATION: GENERAL: The patient is sitting up in his bed. No distress. He is cachectic. VITAL SIGNS: This morning with oral temperature 36.9, pulse 68, blood pressure 124/62, and pulse oximetry on room air 96%. HEAD: Frontal and temporal wasting. EYES: Pupils equal and round. Anicteric. Conjunctivae normal. No xanthelasma. MOUTH: Edentulous. Dry mucous membranes. NECK: Jugular venous pressure less than 5 cm. Carotids 2/2 on the right and 1/2 on the left. Normal upstroke. No bruits. LUNGS: Decreased breath sounds at the bases. Improved with deep breathing. No rales or wheezes. HEART: PMI not palpable. No lifts or heaves. Decreased heart sounds. The aortic valvular closing sound is present. A 1/6 systolic murmur at the left upper sternal border. No diastolic murmur. A 2/6 systolic murmur at the left lower sternal border and apex. No diastolic murmur or rub. ABDOMEN: Positive bowel sounds. No palpable masses or organomegaly. Easily palpable aorta. Diffuse mild tenderness. EXTREMITIES: No pretibial edema. No cyanosis or clubbing. PULSES: Dorsalis pedis and posterior tibial pulses were weakly palpable bilaterally. NEUROLOGIC: At time of my exam, the patient was alert. Oriented to month, year, name, and place. PSYCHIATRIC: Affect normal. DATA: Chest x-ray on admission and reviewed by me with no heart failure. No infiltrate. CT scan of the abdomen with 6.5 x 6.2 infrarenal abdominal aortic aneurysm. A 3-cm right common iliac artery aneurysm. No evidence of bowel obstruction. Colon with appearance consistent with colitis. No bowel obstruction. Prior right hemicolectomy. Ileocolic anastomosis. Stool for C. diff toxin negative. LABORATORY DATA TODAY: WBC 15.22, hemoglobin 10.8, hematocrit 33.5, and platelet count 399. INR on admission 1.1. PTT 32.7. Metabolic profile today with sodium 140, potassium 3.3, chloride 110, carbon dioxide 22, BUN 19, creatinine 0.85, random glucose 127, phosphorus 2.4 and magnesium 2.2. AST 14. ALT 13. Alkaline phosphatase 222. Total protein 5.4. Albumin 1.6. Troponin I less than 0.015 on 3 determinations. Lipid profile with triglycerides 109, total cholesterol 75, HDL 23, and calculated LDL 30. Urinalysis yesterday with dark appearance of urine. Specific gravity greater than 1.045. Echocardiogram performed today and reviewed and interpreted by me with hyperdynamic left ventricular systolic function, left ventricular diastolic dysfunction, aortic valve sclerosis, mild aortic stenosis, calculated aortic valve area 1.7 square cm, mild tricuspid regurgitation, mildly elevated estimated right ventricular systolic pressure, trace aortic regurgitation, trace mitral regurgitation, and low central venous pressure based on the appearance of the IVC. Electrocardiogram in April 18 with sinus rhythm with occasional premature ventricular beat. Minor nonspecific T-wave abnormalities. Compared to electrocardiogram of 05/28/2014, PVC present. No diagnostic changes of myocardial ischemia on electrocardiogram. ASSESSMENT: 1. Report of chest pain in the admission H&P. The patient himself denies having had any chest pain. The nursing staff today states that he is not complaining of any chest pain. He does complain of abdominal discomfort. No prior history of coronary artery disease. 2. Electrocardiogram without ischemic ST or T-wave abnormalities. 3. Cardiac enzymes negative for myocardial injury. 4. Hyperdynamic left ventricular systolic function. Normal left ventricular wall thickness. No segmental wall motion abnormalities of the left ventricle. 5. Peripheral vascular disease. Large infrarenal abdominal aortic aneurysm. The patient declines surgical or endovascular treatment for this. No current symptoms referable to the aneurysm. 6. History of ulcerative colitis. Symptoms consistent with colitis at this time. Abdominal CT scan with evidence of colitis. 7. The patient reported to me that he had seen some blood in the stools. His stools have also been dark in color. Stool for Hemoccult blood on this admission positive. He has an anemia. With his intravascular volume depletion, anemia may be more profound than evident on current hemoglobin. 8. Intravascular volume depletion. On exam, the patient has intravascular volume depletion. 9. Prerenal azotemia. 10. Hypokalemia. 11. Hypophosphatemia. 12. Malnutrition. Low serum albumin. RECOMMENDATIONS: 1. No further cardiac workup at this time. The patient has no anginal symptoms based on the nursing report to me today. Also, based on my history obtained from the patient. He has no ischemic ST or T-wave abnormalities. His cardiac enzymes are negative for myocardial injury. He actually has hyperdynamic LV systolic function. 2. Increase the rate of normal saline. 3. Potassium and phosphorus supplementation. 4. Await recommendations of GI consult. 5. Monitor renal function and hemoglobin. ADDENDUM: The echocardiogram revealed moderate aortic valve sclerosis and mild stenosis. The stenosis is not hemodynamically significant. He has not had any symptoms referable to any significant valvular disease. Thank you for asking us to see this patient in cardiology consultation.
[2017-04-19] MEDS ORDERED: METHYLPREDNISOLONE IV 40 MG in SYRINGE 0 ML IV SCH (13:30)
[2017-04-19] MEDS: POTASSIUM CHLORIDE INJ 40 MEQ in SODIUM CHLORIDE 0.9% 1000ML 1,000 ML IV SCH (14:18)
--- NOTE | 2017-04-19 15:48 | Medical Student: [facility] ---
Med Student Progress Note Date of Service Apr 19, 2017. Subjective Pt evaluation today including: conversation w/ patient, physical exam, chart review, lab review, review of studies Mr. 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 and abdomen with contrast that revealed thickened colon wall wall/colitis and he was admitted for further evaluation and management/IV hydration. Hospital Day 1: No acute events overnight. He reports mild abdominal discomfort but cannot specify the pain further. He is a poor historian due to underlying dementia. He needs frequent redirection during our conversation. He was drinking coffee during the exam but he did not each much of his liquid breakfast. He denies chest pain or shortness of breath. Per nursing, he had an episode of diarrhea today. Review of Systems Constitutional: + weakness, + fatigue, No fever, No chills, No sweats Eyes: No worsening of vision, No redness ENT: No nasal symptoms, No sore throat Respiratory: No cough, No shortness of breath Cardiac: No chest pain, No edema Abdomen: + pain, + diarrhea, No nausea, No vomiting, No constipation Musculoskeletal: No muscle pain, No calf pain Male : No dysuria, No incontinence Neurologic: No weakness, No numbness/tingling Psychiatric: No depression symptoms, No anxiety Heme: No abnormal bleeding/bruising Endo: No fatigue Skin: No rash, No itch Objective Vital Signs Date Time Temp Pulse Resp B/P (MAP) Pulse Ox O2 Delivery O2 Flow Rate FiO2 04/19/17 04:00 Room Air 04/19/17 03:52 37.2 97 20 112/66 (81) 93 Room Air 04/18/17 23:59 Room Air 04/18/17 23:38 36.9 106 19 100/62 (75) 91 Room Air 04/18/17 20:00 Room Air 04/18/17 19:38 37.1 106 20 117/71 (86) 94 Room Air 04/18/17 16:00 96 Room Air 04/18/17 15:44 37.0 92 20 108/67 (81) 96 Room Air 04/18/17 14:58 36.9 100 20 130/71 (90) 96 Room Air 04/18/17 13:30 82 16 114/67 95 Room Air 04/18/17 13:00 97 Room Air 04/18/17 12:10 85 04/18/17 11:22 82 04/18/17 10:27 37.0 108 20 101/63 97 Room Air Physical Exam General Appearance: WD/WN, no apparent distress, + cachetic Eyes: bilateral eyes normal inspection ENT: normal ENT inspection, hearing grossly normal Neck: supple, no adenopathy, thyroid normal, no carotid bruits Respiratory/Chest: chest non-tender, lungs clear, normal breath sounds, no respiratory distress, no accessory muscle use Cardiovascular: regular rate, rhythm, no edema, no gallop, + systolic murmur (2 /6 at right upper sternal border ) Abdomen: normal bowel sounds, non tender, soft, no organomegaly, + mass ( pulsatile, at midline ) Extremities: non-tender, normal inspection, no pedal edema, no calf tenderness Neurologic/Psychiatric: no motor/sensory deficits, alert, normal mood/affect, + disoriented (oriented to person and place ) Skin: normal color, warm/dry, no rash Lymphatic: no adenopathy Laboratory Results Last 24 Hours Test 04/18/17 10:55 04/18/17 11:02 04/18/17 11:04 04/18/17 19:07 Sodium Level 137 mmol/L Potassium Level 3.4 mmol/L Chloride Level 106 mmol/L Carbon Dioxide Level 24 mmol/L Anion Gap 7.0 mmol/L 17.0 mmol/L Blood Urea Nitrogen 21 mg/dl Creatinine 0.98 mg/dl Est Creatinine Clear Calc Drug Dose 38.8 ml/min Estimated GFR () 78.9 Estimated GFR (Non- 68.1 BUN/Creatinine Ratio 21.3 Random Glucose 120 mg/dl Calcium Level 8.1 mg/dl Phosphorus Level 3.1 mg/dl Magnesium Level 2.1 mg/dl Total Bilirubin 0.8 mg/dl Direct Bilirubin 0.4 mg/dl Aspartate Amino Transf (AST/SGOT) 11 U/L Alanine Aminotransferase (ALT/SGPT) 14 U/L Alkaline Phosphatase 261 U/L Total Creatine Kinase 36 U/L 35 U/L Creatine Kinase MB 1.2 ng/ml Creatine Kinase MB Ratio 3.3 Troponin I < 0.015 ng/ml < 0.015 ng/ml Total Protein 5.7 gm/dl Albumin 1.8 gm/dl Triglycerides Level 109 mg/dl Cholesterol Level 75 mg/dl HDL Cholesterol 23 mg/dl LDL Cholesterol, Calculated 30 mg/dl VLDL Cholesterol, Calculated 22 mg/dl Cholesterol/HDL Ratio 3.3 Lipase 48 U/L Thyroid Stimulating Hormone (TSH) 1.000 uIu/ml White Blood Count 13.16 K/uL Red Blood Count 3.55 M/uL Hemoglobin 11.2 g/dL Hematocrit 32.9 % Mean Corpuscular Volume 92.7 fL Mean Corpuscular Hemoglobin 31.5 pg Mean Corpuscular Hemoglobin Concent 34.0 g/dl Platelet Count 388 K/uL Mean Platelet Volume 8.3 fL Neutrophils (%) (Auto) 77.1 % Lymphocytes (%) (Auto) 10.3 % Monocytes (%) (Auto) 11.6 % Eosinophils (%) (Auto) 0.1 % Basophils (%) (Auto) 0.1 % Neutrophils # (Auto) 10.14 K/uL Lymphocytes # (Auto) 1.36 K/uL Monocytes # (Auto) 1.53 K/uL Eosinophils # (Auto) 0.01 K/uL Basophils # (Auto) 0.01 K/uL RDW Standard Deviation 48.5 fL RDW Coefficient of Variation 14.3 % Immature Granulocyte % (Auto) 0.8 % Immature Granulocyte # (Auto) 0.11 K/uL Toxic Granulation 3+ Dohle Bodies 2+ Prothrombin Time 11.8 SECONDS Prothromb Time International Ratio 1.1 Activated Partial Thromboplast Time 32.7 SECONDS Partial Thromboplastin Ratio 1.3 Bedside Hemoglobin 11.2 g/dl Bedside Hematocrit 33 % Bedside Sodium 136 mEq/L Bedside Potassium 3.4 mEq/L Bedside Chloride 101 mEq/L Bedside Total CO2 22 mEq/l Bedside Blood Urea Nitrogen 20 mg/dl Bedside Creatinine 1.1 mg/dl Bedside Glucose (other) 121 mg/dl Bedside Ionized Calcium (Rosemary) 1.16 mmol/l Test 04/18/17 21:15 04/18/17 21:52 04/19/17 03:31 Urine Color DK YELLOW Urine Appearance CLEAR Urine pH 6.0 Urine Specific [place] > 1.045 Urine Protein 1+ Urine Glucose (UA) NEG Urine Ketones 1+ Urine Occult Blood TRACE Urine Nitrite NEG Urine Bilirubin NEG Urine Urobilinogen NEG Urine Leukocyte Esterase NEG Urine WBC (Auto) 1-5 /hpf Urine RBC (Auto) 5-10 /hpf Urine Hyaline Casts (Auto) 1-5 /lpf Urine Epithelial Cells (Auto) 10-20 /lpf Urine Bacteria (Auto) NEG Stool Occult Blood POSITIVE White Blood Count 15.22 K/uL Red Blood Count 3.59 M/uL Hemoglobin 10.8 g/dL Hematocrit 33.5 % Mean Corpuscular Volume 93.3 fL Mean Corpuscular Hemoglobin 30.1 pg Mean Corpuscular Hemoglobin Concent 32.2 g/dl Platelet Count 399 K/uL Mean Platelet Volume 8.4 fL Neutrophils (%) (Auto) 64.8 % Lymphocytes (%) (Auto) 25.5 % Monocytes (%) (Auto) 9.0 % Eosinophils (%) (Auto) 0.1 % Basophils (%) (Auto) 0.1 % Neutrophils # (Auto) 9.87 K/uL Lymphocytes # (Auto) 3.88 K/uL Monocytes # (Auto) 1.37 K/uL Eosinophils # (Auto) 0.02 K/uL Basophils # (Auto) 0.01 K/uL RDW Standard Deviation 49.0 fL RDW Coefficient of Variation 14.2 % Immature Granulocyte % (Auto) 0.5 % Immature Granulocyte # (Auto) 0.07 K/uL Toxic Granulation 1+ Dohle Bodies 1+ Polychromasia 1+ Sodium Level 140 mmol/L Potassium Level 3.3 mmol/L Chloride Level 110 mmol/L Carbon Dioxide Level 22 mmol/L Anion Gap 8.0 mmol/L Blood Urea Nitrogen 19 mg/dl Creatinine 0.85 mg/dl Est Creatinine Clear Calc Drug Dose 44.8 ml/min Estimated GFR () 89.5 Estimated GFR (Non- 77.3 BUN/Creatinine Ratio 21.9 Random Glucose 127 mg/dl Calcium Level 7.8 mg/dl Phosphorus Level 2.4 mg/dl Magnesium Level 2.2 mg/dl Total Bilirubin 0.7 mg/dl Aspartate Amino Transf (AST/SGOT) 14 U/L Alanine Aminotransferase (ALT/SGPT) 13 U/L Alkaline Phosphatase 222 U/L Total Creatine Kinase 150 U/L Troponin I < 0.015 ng/ml Total Protein 5.4 gm/dl Albumin 1.6 gm/dl Globulin 3.8 gm/dl Albumin/Globulin Ratio 0.4 Microbiology Results 04/18/17 WBC Smear - Final, Resulted 04/18/17 Shiga Toxin Test - Preliminary, Resulted No E. Coli shiga toxin 1 or shiga tox... 04/18/17 Stool Culture - Preliminary, Resulted NO SALMONELLA ISOLATED TO DATE,... 04/18/17 C.difficile Toxin B Gene (PCR) - Final, Complete No C. difficile toxin B gene detected Diagnostic Radiology Chest x-ray on admission and reviewed by me with no heart failure. No infiltrate. CT scan of the abdomen with 6.5 x 6.2 infrarenal abdominal aortic aneurysm. A 3-cm right common iliac artery aneurysm. No evidence of bowel obstruction. Colon with appearance consistent with colitis. No bowel obstruction. Prior right hemicolectomy. Ileocolic anastomosis. Stool for C. diff toxin negative. 1. No further cardiac workup at this time. The patient has no anginal symptoms based on the nursing report to me today. Also, based on my history obtained from the patient. He has no ischemic ST or T-wave abnormalities. His cardiac enzymes are negative for myocardial injury. He actually has hyperdynamic LV systolic function. 2. Increase the rate of normal saline. 3. Potassium and phosphorus supplementation. 4. Await recommendations of GI consult. 5. Monitor renal function and hemoglobin. EKG ECHO 04/19/17 Interpretation Summary * Name: STEVEN SPARKS Study Date: 04/19/2017 06:53 AM BP: 124/62 mmHg * Patient Location: [facility]\S\1 HR: 100 * : 1925 (M/d/yyyy) Gender: Male Height: 66 in * Age: 89 yrs Ethnicity: [place] Weight: 118 lb * Ordering Physician: Kelsey Walsh * Performed By: Cecilia Donald RDCS * * Reason For Study: Chest pain, systolic murmur * BSA: 1.6 m2 * Hyperdynamic left ventricular systolic function. * Left ventricular diastolic dysfunction. * Aortic valve sclerosis. * Mild aortic stenosis. * Mild tricuspid regurgitation. * Trace mitral regurgitation. * Trace aortic regurgitation. * Mildly elevated estimated right ventricular systolic pressure. * -- Conclusions -- * Aortic valve sclerosis moderate, without significant aortic valvular stenosis. EF > 70% Assessment and Plan Assessment and Plan: ASSESSMENT: Mr. 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 and abdomen with contrast that revealed thickened colon wall wall/colitis and he was admitted for further evaluation and management/IV hydration. His vitals remain stable. He is being treated for beltre-colitis with antibiotics. 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 difficile was negative Repeat stool cultures were negative for infectious etiology Heme positive stool GI consultation ordered Chest pain rule out ACS Possible ischemia/history is limited unable to ensure his stable angina Serial cardiac enzymes negative 2D Echo: Aortic valve sclerosis moderate, without significant aortic valvular stenosis. EF > 70% Appreciate cardiology consult Severe protein calorie malnutrition Continue patient on nutritional supplement AAA with extensive plaque, measured 6.5 x 6.2 cm, previously 6.4 x 6.0 cm today on 01/21/17 Continue metoprolol Start low dose Lipitor Dyslipidemia Lipid panel TG 109, Chol 75, LDL 30, HDL 23 Deep slight worsening in his AAA dimensions, will start low-dose of lipitor We will need to check CK and LFTs in 2 weeks as an outpatient Prostate cancer status post seeding UA: highly concentrated, positive for ketones and occult blood Colon cancer status post resection 2003 Stool Heme occult positive Arthritis Tylenol for pain History of hernia repair No obstructed or recurrent hernia on exam History of appendectomy No intestinal obstruction or adhesions on CT abdomen Code Patient is currently limited code , no intubation or CPR DVT prophylaxis heparin SQ
--- NOTE | 2017-04-19 16:18 | Progress Note ---
Subjective Date of Service: Apr 19, 2017. Subjective Pt evaluation today including: conversation w/ patient, conversation w/ family , physical exam, lab review, review of inpatient medication list Pain: denies pain PO Intake: tolerating liquids Voiding: no voiding problems patient with only one episode of diarrhea this AM per nursing, no vomiting, denies pain spoke with patient's daughter at bedside, reports that diarrhea has been going on for a month poor diet, only eats junk food has dementia but still [place] has been losing weight plans for [facility] this weekend, already in place prior to admission she cannot recall him having Ulcerative colitis in the past I reviewed labs and imaging Problem List Medical Problems: (1) Cachexia Status: Acute (2) Colitis Status: Acute (3) Dehydration Status: Acute (4) Failure to thrive Status: Acute (5) Malnutrition Status: Acute Review of Systems Constitutional: + weakness, + fatigue Abdomen: + diarrhea Neurologic: + memory loss All Other Systems: Reviewed and Negative Medications Current Inpatient Medications Medications (Trade) Dose Ordered Sig/Joey Route Start Time Stop Time Status Last Admin Dose Admin Ioversol (Optiray 320) 111 ml UD PRN IV 04/18/17 11:00 04/22/17 10:59 Heparin Sodium (Porcine) (Heparin Sq 5000 Unit/0.5ml) 5,000 unit Q12 SQ 04/18/17 21:00 05/18/17 20:59 04/19/17 08:11 5,000 UNIT Acetaminophen (Tylenol Tab) 650 mg Q4H PRN PO 04/18/17 14:00 05/18/17 13:59 Al Hydrox/Mg Hydrox/Simethicone (Maalox Max Susp) 15 ml Q4H PRN PO 04/18/17 14:00 05/18/17 13:59 Magnesium Hydroxide (Milk Of Magnesia Susp) 30 ml Q12H PRN PO 04/18/17 14:00 05/18/17 13:59 Aspirin (Ecotrin Tab) 81 mg QAM PO 04/19/17 09:00 05/19/17 08:59 04/19/17 08:08 81 MG Ciprofloxacin/ Dextrose 200 mg/ Prmx 100 ml @ 100 mls/hr Q12 IV 04/18/17 16:00 04/28/17 15:59 04/19/17 08:07 100 MLS/HR Metronidazole 500 mg/Prmx 100 ml @ 100 mls/hr Q12 IV 04/18/17 18:00 04/28/17 17:59 04/19/17 08:11 100 MLS/HR Metoprolol Succinate (Toprol Xl Tab) 25 mg DAILY PO 04/19/17 09:00 05/19/17 08:59 04/19/17 08:08 25 MG Atorvastatin Calcium (Lipitor Tab) 10 mg QAM PO 04/18/17 16:00 05/18/17 15:59 04/19/17 08:08 10 MG Potassium Chloride 40 meq/ Sodium Chloride 1,020 ml @ 75 mls/hr [id number] IV 04/19/17 13:30 05/19/17 13:29 04/19/17 14:18 75 MLS/HR Objective Vital Signs Date Time Temp Pulse Resp B/P (MAP) Pulse Ox O2 Delivery O2 Flow Rate FiO2 04/19/17 15:49 93 04/19/17 15:46 36.7 91 18 131/69 (89) 93 Room Air 04/19/17 15:30 36.7 86 23 118/69 (85) 93 Room Air 04/19/17 12:00 95 Room Air 04/19/17 11:46 36.8 87 18 106/63 (77) 96 04/19/17 08:00 96 Room Air 04/19/17 07:48 36.9 68 18 124/62 (82) 96 04/19/17 04:00 Room Air 04/19/17 03:52 37.2 97 20 112/66 (81) 93 Room Air 04/18/17 23:59 Room Air 04/18/17 23:38 36.9 106 19 100/62 (75) 91 Room Air 04/18/17 20:00 Room Air 04/18/17 19:38 37.1 106 20 117/71 (86) 94 Room Air Physical Exam General Appearance: no apparent distress, + thin Eyes: normal inspection, EOMI, sclerae normal ENT: normal ENT inspection, hearing grossly normal, pharynx normal Neck: supple, no adenopathy, no JVD, trachea midline Respiratory/Chest: chest non-tender, lungs clear, normal breath sounds, no respiratory distress, no accessory muscle use Cardiovascular: regular rate, rhythm, no edema, no gallop, no JVD, no murmur Abdomen: normal bowel sounds, non tender, soft, no organomegaly Extremities: normal range of motion, non-tender, normal inspection, no pedal edema, no calf tenderness Neurologic/Psychiatric: cake washer II-XII nml as tested, no motor/sensory deficits, alert, normal mood/affect, oriented x 3 Skin: normal color, warm/dry, no rash Laboratory Results Last 24 Hours Test 04/18/17 19:07 04/18/17 21:15 04/18/17 21:52 04/19/17 03:31 Total Creatine Kinase 35 U/L 150 U/L Troponin I < 0.015 ng/ml < 0.015 ng/ml Urine Color DK YELLOW Urine Appearance CLEAR Urine pH 6.0 Urine Specific [place] > 1.045 Urine Protein 1+ Urine Glucose (UA) NEG Urine Ketones 1+ Urine Occult Blood TRACE Urine Nitrite NEG Urine Bilirubin NEG Urine Urobilinogen NEG Urine Leukocyte Esterase NEG Urine WBC (Auto) 1-5 /hpf Urine RBC (Auto) 5-10 /hpf Urine Hyaline Casts (Auto) 1-5 /lpf Urine Epithelial Cells (Auto) 10-20 /lpf Urine Bacteria (Auto) NEG Stool Occult Blood POSITIVE White Blood Count 15.22 K/uL Red Blood Count 3.59 M/uL Hemoglobin 10.8 g/dL Hematocrit 33.5 % Mean Corpuscular Volume 93.3 fL Mean Corpuscular Hemoglobin 30.1 pg Mean Corpuscular Hemoglobin Concent 32.2 g/dl Platelet Count 399 K/uL Mean Platelet Volume 8.4 fL Neutrophils (%) (Auto) 64.8 % Lymphocytes (%) (Auto) 25.5 % Monocytes (%) (Auto) 9.0 % Eosinophils (%) (Auto) 0.1 % Basophils (%) (Auto) 0.1 % Neutrophils # (Auto) 9.87 K/uL Lymphocytes # (Auto) 3.88 K/uL Monocytes # (Auto) 1.37 K/uL Eosinophils # (Auto) 0.02 K/uL Basophils # (Auto) 0.01 K/uL RDW Standard Deviation 49.0 fL RDW Coefficient of Variation 14.2 % Immature Granulocyte % (Auto) 0.5 % Immature Granulocyte # (Auto) 0.07 K/uL Toxic Granulation 1+ Dohle Bodies 1+ Polychromasia 1+ Sodium Level 140 mmol/L Potassium Level 3.3 mmol/L Chloride Level 110 mmol/L Carbon Dioxide Level 22 mmol/L Anion Gap 8.0 mmol/L Blood Urea Nitrogen 19 mg/dl Creatinine 0.85 mg/dl Est Creatinine Clear Calc Drug Dose 44.8 ml/min Estimated GFR () 89.5 Estimated GFR (Non- 77.3 BUN/Creatinine Ratio 21.9 Random Glucose 127 mg/dl Calcium Level 7.8 mg/dl Phosphorus Level 2.4 mg/dl Magnesium Level 2.2 mg/dl Total Bilirubin 0.7 mg/dl Aspartate Amino Transf (AST/SGOT) 14 U/L Alanine Aminotransferase (ALT/SGPT) 13 U/L Alkaline Phosphatase 222 U/L Total Protein 5.4 gm/dl Albumin 1.6 gm/dl Globulin 3.8 gm/dl Albumin/Globulin Ratio 0.4 Assessment and Plan 89 years old man with past medical 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 Also has a large abdominal aortic aneurysm. Presented with intermittent chest pain and abdominal pain with diarrhea for the last month. Colitis: descending and sigmoid colon improved today, only one BM, no abdominal pain, tolerating liquids continue Cipro and Flagyl IV unclear of history of UC? family does not remember this and I cannot find evidence in outpatient records gave one dose of Solu Medrol 40mg IV and will wait for input from GI, consult placed today C diff negative and stool cultures negative Chest pain rule out ACS no evidence of ACS, echo normal, appreciate cardiology consult Severe protein calorie malnutrition supplementation, per daughter, diarrhea for a month AAA with extensive plaque, measured 6.5 x 6.2 cm, previously 6.4 x 6.0 cm today on 01/21/17 continue metoprolol Dyslipidemia, By history, patient is taking no medications Prostate cancer status post seeding in remission Colon cancer status post resection 2003 Arthritis Tylenol for pain Patient is currently limited code , no intubation or CPR heparin SQ for DVT prophylaxis await recommendations from Gastroenterology
[2017-04-20] VITALS (9 sets, daily range): BP systolic 111–163; BP diastolic 67–82; PULSE 53–93; TEMP 36.5–36.9; O2SAT 91–96
[2017-04-20] MEDS: POTASSIUM CHLORIDE INJ 40 MEQ in SODIUM CHLORIDE 0.9% 1000ML 1,000 ML IV SCH (04:58)
[2017-04-20] MEDS: ASPIRIN 81 MG ECTAB PO SCH (08:12)
[2017-04-20] MEDS: ATORVASTATIN 10 MG TAB PO SCH (08:12)
[2017-04-20] MEDS: METOPROLOL SUCC 25MG EXT REL TAB PO SCH (08:12)
[2017-04-20] MEDS: METRONIDAZOLE / NSS 500 MG in PREMIXED NSS 100 ML IV SCH ×2 (08:12→20:33)
[2017-04-20] MEDS: HEPARIN SOD 5000 UNIT/0.5 ML CARP SQ SCH ×2 (08:13→20:42)
[2017-04-20] MEDS: CIPROFLOXACIN / D5W 200 MG in PREMIXED IN D5W 100 ML IV SCH ×2 (08:13→21:41)
--- NOTE | 2017-04-20 09:56 | Gastrointestinal Consultation ---
Gastrointestinal Consultation Date of Consultation: Apr 20, 2017 Attending Physician: Dr. Schmitt Consulting Physician: Tere Delacruz PA-C Reason for Consultation: Colitis History of Present Illness Patient is a 89 year old male with a PMH of colon cancer, AAA, prostate cancer, & dementia. GI has been asked to see this patient regarding colitis. The patient 's family member reports he had been having diarrhea for several weeks. While the patient had supposedly reported a history of ulcerative colitis, family did not corroborate this story. Per old records, did have a moderately differentiated invasive mucinous adenocarcinoma in 2003 and underwent a right hemicolectomy. The patient & family cannot recall the last colonoscopy or the provider of that study. Due to dementia, the patient is a poor historian. He has CT findings of nonspecific colitis of the descending and sigmoid colon. He did have chest pain on arrival per reports, but he denies this at present. He has a AAA with extensive plaque measuring 6.5x6.2 cm. He has had negative C diff & stool cultures. Per nursing, he is presently not having diarrhea or rectal bleeding. Patient denies any symptoms at present. He reports that at his age, he is not inclined to do anything but return home. He is not interested in an extensive work-up. While he cannot recall details of his history, he is alert & oriented appropriately at the time of my visit. Past Medical/Surgical History Medical Problems: (1) Cachexia Status: Acute (2) Colitis Status: Acute (3) Dehydration Status: Acute (4) Failure to thrive Status: Acute (5) Malnutrition Status: Acute Past Medical History: AAA, colon cancer, prostate cancer, dementia Past Surgical History: right hemicolectomy Social History Smoking Status: Former Smoker Marital Status: Housing Status: lives with family Occupation Status: employed Allergies Coded Allergies: No Known Allergies (Verified , 04/18/17) Current Medications Home Meds and Scripts Medications Dose Route/Sig Max Daily Dose Days Date Category Metoprolol Succinate ER (Metoprolol Succinate) 25 Mg Tabcr 25 Mg PO DAILY 04/18/17 Reported Review of Systems Constitutional: No fever, No chills Eyes: No problem reported Respiratory: No cough, No shortness of breath Cardiac: No chest pain Abdomen: No pain, No diarrhea, No GI bleeding Musculoskeletal: No problem reported Neuro: No problem reported Psych: No problem reported Skin: No problem reported Physical Exam Date Time Temp Pulse Resp B/P (MAP) Pulse Ox O2 Delivery O2 Flow Rate FiO2 04/20/17 08:00 Room Air 04/20/17 07:50 36.8 90 18 122/68 (86) 96 04/20/17 04:00 93 Room Air 04/20/17 03:14 36.5 82 18 123/67 (85) 95 Room Air 04/19/17 23:59 93 Room Air 04/19/17 23:12 36.6 84 18 98/62 (74) 93 Room Air 04/19/17 20:00 Room Air 04/19/17 19:11 36.7 86 23 129/73 (91) 94 Room Air 04/19/17 16:00 94 Room Air 04/19/17 15:49 93 04/19/17 15:46 36.7 91 18 131/69 (89) 93 Room Air 04/19/17 15:30 36.7 86 23 118/69 (85) 93 Room Air 04/19/17 12:00 95 Room Air 04/19/17 11:46 36.8 87 18 106/63 (77) 96 General Appearance: WD/WN, no apparent distress Eyes: normal inspection, PERRL Respiratory/Chest: lungs clear, normal breath sounds Cardiovascular: regular rate, rhythm Abdomen: normal bowel sounds, non tender, soft Extremities: non-tender Neurologic/Psych: alert, oriented x 3 Skin: normal color Laboratory Results H/H 10.8/33.5 WBC 15.22 Impression Patient is a 89 year old male with a nonspecific colitis on CT imaging and reported history of diarrhea. The patient had reported a history of Ulcerative colitis, but family cannot corroborate this claim. It has been many years since his last colonoscopy. Differential diagnosis includes ischemic colitis vs UC vs diverticulitis vs other. Plan 1) Continue Cipro & Flagyl therapy x 10 days. 2) Advance diet as tolerated. 3) Patient is not interested in further GI testing at this time, citing age as his reason. Though he does have a history of dementia and is a poor historian, he is alert & oriented appropriately at the time of my visit. 4) Continue to monitor clinical course and adjust plan based on symptom. Thank you for allowing us to participate in the care of this patient. If you should have any further questions or concerns, do not hesitate to contact us. Agree with JOSHUA Joiner as above Abd: Soft, NT, ND, +BS Continue current therapy Followup in our office if patient wishes to have further evaluation and recommendations.
--- NOTE | 2017-04-20 10:29 | Clinical Documentation Query ---
EMRE Villasenor : CLINICAL DOCUMENTATION QUERY Patient is an 89 year old male admitted for evaluation and treatment of colitis, not otherwise specified. He is being treated with Cipro and Flagyl IV, pending GI consultation. CT scan read to include "moderate circumferential wall thickening with mucosal hyperemia and surrounding inflammatory stranding involving the majority of the colon, greatest within the descending and sigmoid portions is compatible with colitis, likely from infectious or inflammatory etiology" In your clinical opinion is this patient being managed for: ( x ) (Possible/Suspected) Bacterial colitis ( ) Not Agree ( ) Other explanation of clinical findings (Please Explain) ( ) Unable to determine (Please Define) ( ) Need to Discuss The medical record reflects the following clinical findings, treatment, and risk factors. Clinical Indicators: As above Treatment:He is being treated with Cipro and Flagyl IV, pending GI consultation. CT scan Risk Factors: Age, ?UC, prior malignancy, severe malnutrition Please clarify and document your clinical opinion in the progress notes and discharge summary. Terms such as "probable", "suspected", "likely", "questionable", "possible", or "still to be ruled out" are acceptable. IF IN AGREEMENT, YOU MUST DOCUMENT ABOVE DIAGNOSTIC STATEMENT IN DAILY PROGRESS NOTES AND DISCHARGE SUMMARY. This document is not part of the patient's record. Thank You, Lm Ramos, DAX [phone]
[2017-04-20 11:36] LABS: BUN/CREATININE RATIO 22.3 (10-20); CALCIUM 8.4 mg/dl (8.5-10.1); CREATININE 0.83 mg/dl (0.60-1.40)
--- NOTE | 2017-04-20 13:29 | Medical Student: [facility] ---
Med Student Progress Note Date of Service Apr 20, 2017. Subjective Pt evaluation today including: conversation w/ patient, physical exam, chart review, lab review, review of studies Mr. 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 and abdomen with contrast that revealed thickened colon wall wall/colitis and he was admitted for treatment of beltre-colitis with antibiotics and IV hydration. Hospital Day 2: No acute events overnight. He reports mild abdominal discomfort but cannot specify the pain further. He is a poor historian due to underlying dementia. He was drinking coffee during the exam and a small amount of his breakfast. He denies chest pain or shortness of breath. Per nursing, he had one episode of diarrhea yesterday, none today. Review of Systems Constitutional: + weight loss, + weakness, + fatigue, No fever, No chills Eyes: No worsening of vision, No redness ENT: No nasal symptoms, No sore throat Respiratory: No cough, No wheezing, No shortness of breath Cardiac: No chest pain, No orthopnea Abdomen: + pain, + diarrhea, No nausea, No vomiting Musculoskeletal: No muscle pain, No calf pain Male : No dysuria, No urinary frequency Neurologic: + weakness, No numbness/tingling Psychiatric: No depression symptoms, No anxiety Heme: No abnormal bleeding/bruising Endo: + fatigue Skin: No rash, No itch Objective Vital Signs Date Time Temp Pulse Resp B/P (MAP) Pulse Ox O2 Delivery O2 Flow Rate FiO2 04/20/17 07:50 36.8 90 18 122/68 (86) 96 04/20/17 04:00 93 Room Air 04/20/17 03:14 36.5 82 18 123/67 (85) 95 Room Air 04/19/17 23:59 93 Room Air 04/19/17 23:12 36.6 84 18 98/62 (74) 93 Room Air 04/19/17 20:00 Room Air 04/19/17 19:11 36.7 86 23 129/73 (91) 94 Room Air 04/19/17 16:00 94 Room Air 04/19/17 15:49 93 04/19/17 15:46 36.7 91 18 131/69 (89) 93 Room Air 04/19/17 15:30 36.7 86 23 118/69 (85) 93 Room Air 04/19/17 12:00 95 Room Air 04/19/17 11:46 36.8 87 18 106/63 (77) 96 Physical Exam General Appearance: WD/WN, no apparent distress, + cachetic Eyes: bilateral eyes normal inspection ENT: normal ENT inspection, hearing grossly normal Neck: supple, no adenopathy, thyroid normal, trachea midline Respiratory/Chest: chest non-tender, lungs clear, normal breath sounds, no respiratory distress, no accessory muscle use Cardiovascular: regular rate, rhythm, no edema, no gallop, + systolic murmur (2 /6 ) Abdomen: normal bowel sounds, soft, no organomegaly, + tenderness (mild ), + pertinent finding (pulsatile mass ) Extremities: non-tender, normal inspection, no pedal edema, no calf tenderness Neurologic/Psychiatric: no motor/sensory deficits, alert, normal mood/affect, + disoriented (oriented to person and place only. ) Skin: normal color, warm/dry, no rash Lymphatic: no adenopathy Medications Current Inpatient Medications Medications (Trade) Dose Ordered Sig/Joey Route Start Time Stop Time Status Last Admin Dose Admin Ioversol (Optiray 320) 111 ml UD PRN IV 04/18/17 11:00 04/22/17 10:59 Heparin Sodium (Porcine) (Heparin Sq 5000 Unit/0.5ml) 5,000 unit Q12 SQ 04/18/17 21:00 05/18/17 20:59 04/20/17 08:13 5,000 UNIT Acetaminophen (Tylenol Tab) 650 mg Q4H PRN PO 04/18/17 14:00 05/18/17 13:59 Al Hydrox/Mg Hydrox/Simethicone (Maalox Max Susp) 15 ml Q4H PRN PO 04/18/17 14:00 05/18/17 13:59 Magnesium Hydroxide (Milk Of Magnesia Susp) 30 ml Q12H PRN PO 04/18/17 14:00 05/18/17 13:59 Aspirin (Ecotrin Tab) 81 mg QAM PO 04/19/17 09:00 05/19/17 08:59 04/20/17 08:12 81 MG Ciprofloxacin/ Dextrose 200 mg/ Prmx 100 ml @ 100 mls/hr Q12 IV 04/18/17 16:00 04/28/17 15:59 04/20/17 08:13 100 MLS/HR Metronidazole 500 mg/Prmx 100 ml @ 100 mls/hr Q12 IV 04/18/17 18:00 04/28/17 17:59 04/20/17 08:12 100 MLS/HR Metoprolol Succinate (Toprol Xl Tab) 25 mg DAILY PO 04/19/17 09:00 05/19/17 08:59 04/20/17 08:12 25 MG Atorvastatin Calcium (Lipitor Tab) 10 mg QAM PO 04/18/17 16:00 05/18/17 15:59 04/20/17 08:12 10 MG Potassium Chloride 40 meq/ Sodium Chloride 1,020 ml @ 75 mls/hr [id number] IV 04/19/17 13:30 04/20/17 15:00 04/20/17 04:58 75 MLS/HR Thiamine HCl (Vitamin B-1 Tab) 100 mg BID PO 04/20/17 21:00 04/24/17 09:00 Enteral Nutritional Formula (Boost) 1 can BID17 PO 04/20/17 17:00 05/20/17 16:59 Assessment and Plan Assessment and Plan: ASSESSMENT: Mr. 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 and abdomen with contrast that revealed thickened colon wall wall/colitis and he was admitted for treatment of beltre-colitis with antibiotics and IV hydration. PLAN: Beltre-Colitis, mainly in the descending colon Telemetry no longer required. Transfer to medical floor STOP IVF to NSS + 40 mEq potassium Continue IV Cipro/Flagyl for 10 day course Repeat C. difficile was negative Repeat stool cultures were negative for infectious etiology Heme positive stool GI consultation appreciated - Patient is not interested in further GI testing at this time Chest pain rule out ACS Possible ischemia/history is limited unable to ensure his stable angina Serial cardiac enzymes negative 2D Echo: Aortic valve sclerosis moderate, without significant aortic valvular stenosis. EF > 70% Appreciate cardiology consult Severe protein calorie malnutrition Continue patient on nutritional supplement Advance diet as tolerated Add thiamine 100 mg BID Add multivitamin AAA with extensive plaque, measured 6.5 x 6.2 cm, previously 6.4 x 6.0 cm today on 01/21/17 Continue metoprolol Start low dose Lipitor Dyslipidemia Lipid panel TG 109, Chol 75, LDL 30, HDL 23 Deep slight worsening in his AAA dimensions, will start low-dose of lipitor We will need to check CK and LFTs in 2 weeks as an outpatient Prostate cancer status post seeding UA: highly concentrated, positive for ketones and occult blood Colon cancer status post resection 2003 Stool Heme occult positive Arthritis Tylenol for pain PRN History of hernia repair No obstructed or recurrent hernia on exam History of appendectomy No intestinal obstruction or adhesions on CT abdomen Code Patient is currently limited code , no intubation or CPR DVT prophylaxis heparin SQ
--- NOTE | 2017-04-20 16:32 | Progress Note ---
Subjective Date of Service: Apr 20, 2017. Subjective Pt evaluation today including: conversation w/ patient, physical exam, lab review, review of inpatient medication list Pain: minimal pain PO Intake: full diet, tolerating Voiding: no voiding problems only one loose stool today, less abdominal pain appreciate GI recommendations vitals stable, labs reviewed, K normal now will transfer to medical floor Problem List Medical Problems: (1) Cachexia Status: Acute (2) Colitis Status: Acute (3) Dehydration Status: Acute (4) Failure to thrive Status: Acute (5) Malnutrition Status: Acute Review of Systems Constitutional: + weakness, + fatigue Abdomen: + pain (LLQ), + diarrhea All Other Systems: Reviewed and Negative Medications Current Inpatient Medications Medications (Trade) Dose Ordered Sig/Joey Route Start Time Stop Time Status Last Admin Dose Admin Ioversol (Optiray 320) 111 ml UD PRN IV 04/18/17 11:00 04/22/17 10:59 Heparin Sodium (Porcine) (Heparin Sq 5000 Unit/0.5ml) 5,000 unit Q12 SQ 04/18/17 21:00 05/18/17 20:59 04/20/17 08:13 5,000 UNIT Acetaminophen (Tylenol Tab) 650 mg Q4H PRN PO 04/18/17 14:00 05/18/17 13:59 Al Hydrox/Mg Hydrox/Simethicone (Maalox Max Susp) 15 ml Q4H PRN PO 04/18/17 14:00 05/18/17 13:59 Magnesium Hydroxide (Milk Of Magnesia Susp) 30 ml Q12H PRN PO 04/18/17 14:00 05/18/17 13:59 Aspirin (Ecotrin Tab) 81 mg QAM PO 04/19/17 09:00 05/19/17 08:59 04/20/17 08:12 81 MG Ciprofloxacin/ Dextrose 200 mg/ Prmx 100 ml @ 100 mls/hr Q12 IV 04/18/17 16:00 04/28/17 15:59 04/20/17 08:13 100 MLS/HR Metronidazole 500 mg/Prmx 100 ml @ 100 mls/hr Q12 IV 04/18/17 18:00 04/28/17 17:59 04/20/17 08:12 100 MLS/HR Metoprolol Succinate (Toprol Xl Tab) 25 mg DAILY PO 04/19/17 09:00 05/19/17 08:59 04/20/17 08:12 25 MG Atorvastatin Calcium (Lipitor Tab) 10 mg QAM PO 04/18/17 16:00 05/18/17 15:59 04/20/17 08:12 10 MG Thiamine HCl (Vitamin B-1 Tab) 100 mg BID PO 04/20/17 21:00 04/24/17 09:00 Enteral Nutritional Formula (Boost) 1 can BID17 PO 04/20/17 17:00 05/20/17 16:59 Objective Vital Signs Date Time Temp Pulse Resp B/P (MAP) Pulse Ox O2 Delivery O2 Flow Rate FiO2 04/20/17 15:52 36.9 77 18 163/82 (109) 93 Room Air 04/20/17 14:53 93 96 04/20/17 11:15 36.5 53 18 111/67 (82) 91 Room Air 04/20/17 10:36 36.8 90 18 96 04/20/17 08:00 Room Air 04/20/17 07:50 36.8 90 18 122/68 (86) 96 04/20/17 04:00 93 Room Air 04/20/17 03:14 36.5 82 18 123/67 (85) 95 Room Air 04/19/17 23:59 93 Room Air 04/19/17 23:12 36.6 84 18 98/62 (74) 93 Room Air 04/19/17 20:00 Room Air 04/19/17 19:11 36.7 86 23 129/73 (91) 94 Room Air Physical Exam General Appearance: WD/WN, no apparent distress Eyes: normal inspection, EOMI, sclerae normal Neck: supple, no adenopathy, no JVD, trachea midline Respiratory/Chest: chest non-tender, lungs clear, normal breath sounds, no respiratory distress, no accessory muscle use Cardiovascular: regular rate, rhythm, no edema, no gallop, no JVD, no murmur Abdomen: normal bowel sounds, soft, no organomegaly, + tenderness (LLQ) Extremities: normal range of motion, non-tender, normal inspection, no pedal edema, no calf tenderness, pelvis stable Neurologic/Psychiatric: hand iii cutter II-XII nml as tested, no motor/sensory deficits, alert, normal mood/affect, + disoriented Skin: normal color, warm/dry, no rash Laboratory Results Last 24 Hours Test 04/20/17 10:39 Sodium Level 143 mmol/L Potassium Level 4.0 mmol/L Chloride Level 114 mmol/L Carbon Dioxide Level 22 mmol/L Anion Gap 7.0 mmol/L Blood Urea Nitrogen 19 mg/dl Creatinine 0.83 mg/dl Est Creatinine Clear Calc Drug Dose 46.3 ml/min Estimated GFR () 90.4 Estimated GFR (Non- 78.0 BUN/Creatinine Ratio 22.3 Random Glucose 188 mg/dl Calcium Level 8.4 mg/dl Assessment and Plan 89 years old man with past medical 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 Also has a large abdominal aortic aneurysm. Presented with intermittent chest pain and abdominal pain with diarrhea for the last month. Colitis: descending and sigmoid colon continues to improve on Cipro and Flagyl IV, change to PO tomorrow no role for steroids at this time C diff negative and stool cultures negative etiology would be ischemic colitis vs UC vs diverticulitis, doubt infectious etiology Chest pain rule out ACS no evidence of ACS, echo normal, appreciate cardiology consult will transfer to medical today Severe protein calorie malnutrition supplementation, per daughter, diarrhea for a month appreciate copper plater input, give supplements, Thiamine, multivitamin AAA with extensive plaque, measured 6.5 x 6.2 cm, previously 6.4 x 6.0 cm today on 01/21/17 continue metoprolol Dyslipidemia, By history, patient is taking no medications Prostate cancer status post seeding in remission Colon cancer status post resection 2003 Arthritis Tylenol for pain Patient is currently limited code , no intubation or CPR transfer to medical floor, stop fluids, plan for [facility] on Tuesday for assisted living
[2017-04-20] MEDS: BOOST VANILLA PO SCH ×2 (17:33)
[2017-04-20] MEDS: THIAMINE HCL 100 MG TAB PO SCH (20:33)
[2017-04-21 06:37] LABS: HEMATOCRIT 30.9 % (42-52); MEAN CELL VOLUME 93.4 fL (80-100); MEAN CORPUSCULAR HEMOGLOBIN 30.8 pg (25-34); MEAN PLATELET VOLUME 8.6 fL (7.4-10.4); PLATELET COUNT 376 K/uL (130-400); RED BLOOD COUNT 3.31 M/uL (4.7-6.1); WHITE BLOOD COUNT 7.33 K/uL (4.8-10.8)
[2017-04-21 07:12] VITALS: BP 135/65; PULSE 82; TEMP 36.7; O2SAT 94
[2017-04-21 07:20] LABS: BUN/CREATININE RATIO 23.9 (10-20); CALCIUM 7.9 mg/dl (8.5-10.1); CREATININE 0.72 mg/dl (0.60-1.40); MAGNESIUM 2.2 mg/dl (1.8-2.4); POTASSIUM 3.3 mmol/L (3.5-5.1)
[2017-04-21 07:50] VITALS: O2SAT 94
[2017-04-21] MEDS: METRONIDAZOLE / NSS 500 MG in PREMIXED NSS 100 ML IV SCH (08:38)
[2017-04-21] MEDS: CIPROFLOXACIN / D5W 200 MG in PREMIXED IN D5W 100 ML IV SCH (08:38)
[2017-04-21] MEDS: ASPIRIN 81 MG ECTAB PO SCH (08:39)
[2017-04-21] MEDS: ATORVASTATIN 10 MG TAB PO SCH (08:39)
[2017-04-21] MEDS: METOPROLOL SUCC 25MG EXT REL TAB PO SCH (08:39)
[2017-04-21] MEDS: THIAMINE HCL 100 MG TAB PO SCH ×2 (08:39→22:19)
[2017-04-21] MEDS: POTASSIUM CHLORIDE 20 MEQ TABCR PO SCH (08:43)
[2017-04-21] MEDS: HEPARIN SOD 5000 UNIT/0.5 ML CARP SQ SCH ×2 (08:43→22:21)
[2017-04-21] MEDS: BOOST VANILLA PO SCH ×4 (08:51→17:23)
[2017-04-21 08:58] VITALS: BP 125/75; PULSE 98; O2SAT 95
--- NOTE | 2017-04-21 09:42 | Gastroenterology Progress Note ---
Progress Note Date of Service: Apr 21, 2017 Subjective Pt evaluation today including: conversation w/ patient, physical exam, lab review, review of studies Patient is an 89 yo male hospitalized with nonspecific colitis. He is currently on Cipro/Flagyl therapy. He reports that he has not been having diarrhea. He reports improvement of his abdominal pain. He reports a headache today. He states he wishes he felt like he did when he was 30. He offers no new complaints at this time. He reports he is hungry. Review of Systems Constitutional: + fatigue, No fever Eyes: No problem reported Respiratory: No cough Cardiac: No chest pain Abdomen: No pain, No nausea, No vomiting, No diarrhea, No constipation, No GI bleeding Musculoskeletal: No problem reported Neuro: + problem reported (headache) Skin: No problem reported Medications Current Inpatient Medications Medications (Trade) Dose Ordered Sig/Joey Route Start Time Stop Time Status Last Admin Dose Admin Ioversol (Optiray 320) 111 ml UD PRN IV 04/18/17 11:00 04/22/17 10:59 Heparin Sodium (Porcine) (Heparin Sq 5000 Unit/0.5ml) 5,000 unit Q12 SQ 04/18/17 21:00 05/18/17 20:59 04/21/17 08:43 5,000 UNIT Acetaminophen (Tylenol Tab) 650 mg Q4H PRN PO 04/18/17 14:00 05/18/17 13:59 Al Hydrox/Mg Hydrox/Simethicone (Maalox Max Susp) 15 ml Q4H PRN PO 04/18/17 14:00 05/18/17 13:59 Magnesium Hydroxide (Milk Of Magnesia Susp) 30 ml Q12H PRN PO 04/18/17 14:00 05/18/17 13:59 Aspirin (Ecotrin Tab) 81 mg QAM PO 04/19/17 09:00 05/19/17 08:59 04/21/17 08:39 81 MG Ciprofloxacin/ Dextrose 200 mg/ Prmx 100 ml @ 100 mls/hr Q12 IV 04/18/17 16:00 04/28/17 15:59 04/21/17 08:38 100 MLS/HR Metronidazole 500 mg/Prmx 100 ml @ 100 mls/hr Q12 IV 04/18/17 18:00 04/28/17 17:59 04/21/17 08:38 100 MLS/HR Metoprolol Succinate (Toprol Xl Tab) 25 mg DAILY PO 04/19/17 09:00 05/19/17 08:59 04/21/17 08:39 25 MG Atorvastatin Calcium (Lipitor Tab) 10 mg QAM PO 04/18/17 16:00 05/18/17 15:59 04/21/17 08:39 10 MG Thiamine HCl (Vitamin B-1 Tab) 100 mg BID PO 04/20/17 21:00 04/24/17 09:00 04/21/17 08:39 100 MG Enteral Nutritional Formula (Boost) 1 can BID17 PO 04/20/17 17:00 05/20/17 16:59 04/20/17 17:33 1 CAN Potassium Chloride (Klor-Con Tab) 20 meq QAM PO 04/21/17 09:00 05/21/17 08:59 04/21/17 08:43 20 MEQ Objective Vital Signs Date Time Temp Pulse Resp B/P (MAP) Pulse Ox O2 Delivery O2 Flow Rate FiO2 04/21/17 08:58 98 95 04/21/17 07:12 36.7 82 20 135/65 (88) 94 Room Air 04/21/17 00:00 Room Air 04/20/17 23:43 36.5 87 20 118/68 (85) 94 Room Air 04/20/17 20:00 93 Room Air 04/20/17 16:26 Room Air 04/20/17 15:52 36.9 77 18 163/82 (109) 93 Room Air 04/20/17 14:53 93 96 04/20/17 11:15 36.5 53 18 111/67 (82) 91 Room Air 04/20/17 10:36 36.8 90 18 96 Physical Exam General Appearance: WD/WN, no apparent distress Eyes: normal inspection, PERRL Respiratory/Chest: lungs clear, normal breath sounds Cardiovascular: regular rate, rhythm Abdomen: normal bowel sounds, non tender, soft Extremities: non-tender Neurologic/Psych: alert, oriented x 3 Skin: normal color Laboratory Results Last 24 Hours Test 04/20/17 10:39 04/21/17 06:08 Sodium Level 143 mmol/L 145 mmol/L Potassium Level 4.0 mmol/L 3.3 mmol/L Chloride Level 114 mmol/L 115 mmol/L Carbon Dioxide Level 22 mmol/L 24 mmol/L Anion Gap 7.0 mmol/L 6.0 mmol/L Blood Urea Nitrogen 19 mg/dl 17 mg/dl Creatinine 0.83 mg/dl 0.72 mg/dl Est Creatinine Clear Calc Drug Dose 46.3 ml/min 51.4 ml/min Estimated GFR () 90.4 95.9 Estimated GFR (Non- 78.0 82.7 BUN/Creatinine Ratio 22.3 23.9 Random Glucose 188 mg/dl 141 mg/dl Calcium Level 8.4 mg/dl 7.9 mg/dl White Blood Count 7.33 K/uL Red Blood Count 3.31 M/uL Hemoglobin 10.2 g/dL Hematocrit 30.9 % Mean Corpuscular Volume 93.4 fL Mean Corpuscular Hemoglobin 30.8 pg Mean Corpuscular Hemoglobin Concent 33.0 g/dl RDW Standard Deviation 49.1 fL RDW Coefficient of Variation 14.4 % Platelet Count 376 K/uL Mean Platelet Volume 8.6 fL Magnesium Level 2.2 mg/dl Total Bilirubin 0.3 mg/dl Direct Bilirubin 0.2 mg/dl Aspartate Amino Transf (AST/SGOT) 19 U/L Alanine Aminotransferase (ALT/SGPT) 16 U/L Alkaline Phosphatase 196 U/L Total Protein 5.0 gm/dl Albumin 1.6 gm/dl Assessment and Plan Patient is an 89 yo male with nonspecific colitis. Differential includes ischemic colitis vs UC vs diverticulitis vs other. 1) Continue Cipro & Flagyl therapy for 10 days. 2) Continue diet as tolerated. 3) Patient does not wish for any further GI interventions. 4) Supportive care. Thank you for allowing us to participate in the care of this patient. If you should have any further questions or concerns, do not hesitate to contact us. Agree with JOSHUA Joiner as above Abd: Soft, NT, ND, +BS Continue current therapy Continue supportive care Followup in our office as outpatient
[2017-04-21] MEDS ORDERED: PANTOprazole SOD 40 MG TAB PO STA (11:14)
--- NOTE | 2017-04-21 13:45 | Medical Student: [facility] ---
Med Student Progress Note Date of Service Apr 21, 2017. Subjective Pt evaluation today including: conversation w/ patient, physical exam, chart review, lab review, review of studies Pain: Mild at epigastrium PO Intake: Regular diet Voiding: no voiding problems Mr. 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 and abdomen with contrast that revealed thickened colon wall wall/colitis and he was admitted for treatment of beltre-colitis with antibiotics and IV hydration. Hospital Day 3: No acute events overnight. He reports mild abdominal discomfort but cannot specify the pain further. He is a poor historian due to underlying dementia. He points to his epigastric region and indicates mild pain. He ate some breakfast, but has decreased appetite. Review of Systems Constitutional: + weight loss, + weakness, + fatigue Eyes: No worsening of vision, No redness ENT: No nasal symptoms, No sore throat Respiratory: No cough, No wheezing Cardiac: No edema Abdomen: + pain, + diarrhea, No nausea, No vomiting Musculoskeletal: No muscle pain, No calf pain Male : No dysuria, No urinary frequency Neurologic: + memory loss, + weakness, No numbness/tingling Psychiatric: No depression symptoms, No anxiety Heme: No abnormal bleeding/bruising Endo: + fatigue Skin: No rash, No itch Objective Vital Signs Date Time Temp Pulse Resp B/P (MAP) Pulse Ox O2 Delivery O2 Flow Rate FiO2 04/21/17 07:12 36.7 82 20 135/65 (88) 94 Room Air 04/21/17 00:00 Room Air 04/20/17 23:43 36.5 87 20 118/68 (85) 94 Room Air 04/20/17 20:00 93 Room Air 04/20/17 16:26 Room Air 04/20/17 15:52 36.9 77 18 163/82 (109) 93 Room Air 04/20/17 14:53 93 96 04/20/17 11:15 36.5 53 18 111/67 (82) 91 Room Air 04/20/17 10:36 36.8 90 18 96 Physical Exam General Appearance: WD/WN, no apparent distress, + cachetic Eyes: bilateral eyes normal inspection ENT: normal ENT inspection, hearing grossly normal Neck: supple, no adenopathy, thyroid normal, trachea midline Respiratory/Chest: chest non-tender, lungs clear, normal breath sounds, no respiratory distress, no accessory muscle use Cardiovascular: regular rate, rhythm, no edema, no gallop, no murmur Abdomen: normal bowel sounds, soft, no organomegaly, + tenderness (mild, at epigastric region ) Extremities: non-tender, normal inspection, no pedal edema, no calf tenderness Neurologic/Psychiatric: no motor/sensory deficits, alert, normal mood/affect, + disoriented (oriented to person and place only. requires frequent redirection ) Skin: normal color, warm/dry, no rash Lymphatic: no adenopathy Laboratory Results Last 24 Hours Test 04/20/17 10:39 04/21/17 06:08 Sodium Level 143 mmol/L 145 mmol/L Potassium Level 4.0 mmol/L 3.3 mmol/L Chloride Level 114 mmol/L 115 mmol/L Carbon Dioxide Level 22 mmol/L 24 mmol/L Anion Gap 7.0 mmol/L 6.0 mmol/L Blood Urea Nitrogen 19 mg/dl 17 mg/dl Creatinine 0.83 mg/dl 0.72 mg/dl Est Creatinine Clear Calc Drug Dose 46.3 ml/min 51.4 ml/min Estimated GFR () 90.4 95.9 Estimated GFR (Non- 78.0 82.7 BUN/Creatinine Ratio 22.3 23.9 Random Glucose 188 mg/dl 141 mg/dl Calcium Level 8.4 mg/dl 7.9 mg/dl White Blood Count 7.33 K/uL Red Blood Count 3.31 M/uL Hemoglobin 10.2 g/dL Hematocrit 30.9 % Mean Corpuscular Volume 93.4 fL Mean Corpuscular Hemoglobin 30.8 pg Mean Corpuscular Hemoglobin Concent 33.0 g/dl RDW Standard Deviation 49.1 fL RDW Coefficient of Variation 14.4 % Platelet Count 376 K/uL Mean Platelet Volume 8.6 fL Magnesium Level 2.2 mg/dl Total Bilirubin 0.3 mg/dl Direct Bilirubin 0.2 mg/dl Aspartate Amino Transf (AST/SGOT) 19 U/L Alanine Aminotransferase (ALT/SGPT) 16 U/L Alkaline Phosphatase 196 U/L Total Protein 5.0 gm/dl Albumin 1.6 gm/dl Medications Current Inpatient Medications Medications (Trade) Dose Ordered Sig/Joey Route Start Time Stop Time Status Last Admin Dose Admin Ioversol (Optiray 320) 111 ml UD PRN IV 04/18/17 11:00 04/22/17 10:59 Heparin Sodium (Porcine) (Heparin Sq 5000 Unit/0.5ml) 5,000 unit Q12 SQ 04/18/17 21:00 05/18/17 20:59 04/21/17 08:43 5,000 UNIT Acetaminophen (Tylenol Tab) 650 mg Q4H PRN PO 04/18/17 14:00 05/18/17 13:59 Al Hydrox/Mg Hydrox/Simethicone (Maalox Max Susp) 15 ml Q4H PRN PO 04/18/17 14:00 05/18/17 13:59 Magnesium Hydroxide (Milk Of Magnesia Susp) 30 ml Q12H PRN PO 04/18/17 14:00 05/18/17 13:59 Aspirin (Ecotrin Tab) 81 mg QAM PO 04/19/17 09:00 05/19/17 08:59 04/21/17 08:39 81 MG Ciprofloxacin/ Dextrose 200 mg/ Prmx 100 ml @ 100 mls/hr Q12 IV 04/18/17 16:00 04/28/17 15:59 04/21/17 08:38 100 MLS/HR Metronidazole 500 mg/Prmx 100 ml @ 100 mls/hr Q12 IV 04/18/17 18:00 04/28/17 17:59 04/21/17 08:38 100 MLS/HR Metoprolol Succinate (Toprol Xl Tab) 25 mg DAILY PO 04/19/17 09:00 05/19/17 08:59 04/21/17 08:39 25 MG Atorvastatin Calcium (Lipitor Tab) 10 mg QAM PO 04/18/17 16:00 05/18/17 15:59 04/21/17 08:39 10 MG Thiamine HCl (Vitamin B-1 Tab) 100 mg BID PO 04/20/17 21:00 04/24/17 09:00 04/21/17 08:39 100 MG Enteral Nutritional Formula (Boost) 1 can BID17 PO 04/20/17 17:00 05/20/17 16:59 04/20/17 17:33 1 CAN Potassium Chloride (Klor-Con Tab) 20 meq QAM PO 04/21/17 09:00 05/21/17 08:59 04/21/17 08:43 20 MEQ Pantoprazole Sodium (Protonix Tab) 40 mg QAM PO 04/22/17 09:00 05/22/17 08:59 Assessment and Plan Assessment and Plan: ASSESSMENT: Mr. 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 and abdomen with contrast that revealed thickened colon wall wall/colitis and he was admitted for treatment of beltre-colitis with antibiotics and IV hydration. PLAN: Beltre-Colitis, mainly in the descending colon STOP IVF to NSS + 40 mEq potassium Continue IV Cipro/Flagyl for 10 day course Repeat C. difficile was negative Repeat stool cultures were negative for infectious etiology Heme positive stool GI consultation appreciated - Patient is not interested in further GI testing at this time Epigastric pain, likely due to GERD Start pantoprazole 40 mg qAM Chest pain, rule out ACS Possible ischemia/history is limited unable to ensure his stable angina Serial cardiac enzymes negative 2D Echo: Aortic valve sclerosis moderate, without significant aortic valvular stenosis. EF > 70% Appreciate cardiology consult Severe protein calorie malnutrition Continue patient on nutritional supplement Advance diet as tolerated Continue thiamine 100 mg BID Continue multivitamin AAA with extensive plaque, measured 6.5 x 6.2 cm, previously 6.4 x 6.0 cm today on 01/21/17 Continue metoprolol Continue dose Lipitor Dyslipidemia Lipid panel TG 109, Chol 75, LDL 30, HDL 23 Slight worsening in his AAA dimensions, will start low-dose of Lipitor We will need to check CK and LFTs in 2 weeks as an outpatient Prostate cancer status post seeding UA: highly concentrated, positive for ketones and occult blood Colon cancer status post resection 2003 Stool Heme occult positive Arthritis Tylenol for pain PRN History of hernia repair No obstructed or recurrent hernia on exam History of appendectomy No intestinal obstruction or adhesions on CT abdomen Code Patient is currently limited code , no intubation or CPR DVT prophylaxis Continue heparin SQ Dispo Remain on medical floor Discharge to [facility], assisted living facility, directly from the hospital on Tuesday04/25/17
--- NOTE | 2017-04-21 13:48 | Progress Note ---
Subjective Date of Service: Apr 21, 2017. Subjective Pt evaluation today including: conversation w/ patient, physical exam, lab review, conversation w/ economic consultant, review of inpatient medication list Pain: mild abdominal pain PO Intake: improving Voiding: no voiding problems patient still c/o LLQ and epigastric pain says his appetite is a little better one loose stool today reviewed labs reviewed economic consultant recommendations from GI Problem List Medical Problems: (1) Cachexia Status: Acute (2) Colitis Status: Acute (3) Dehydration Status: Acute (4) Failure to thrive Status: Acute (5) Malnutrition Status: Acute Review of Systems Constitutional: + weakness, + fatigue Abdomen: + pain, + diarrhea Neurologic: + memory loss All Other Systems: Reviewed and Negative Medications Current Inpatient Medications Medications (Trade) Dose Ordered Sig/Joey Route Start Time Stop Time Status Last Admin Dose Admin Ioversol (Optiray 320) 111 ml UD PRN IV 04/18/17 11:00 04/22/17 10:59 Heparin Sodium (Porcine) (Heparin Sq 5000 Unit/0.5ml) 5,000 unit Q12 SQ 04/18/17 21:00 05/18/17 20:59 04/21/17 08:43 5,000 UNIT Acetaminophen (Tylenol Tab) 650 mg Q4H PRN PO 04/18/17 14:00 05/18/17 13:59 Al Hydrox/Mg Hydrox/Simethicone (Maalox Max Susp) 15 ml Q4H PRN PO 04/18/17 14:00 05/18/17 13:59 Magnesium Hydroxide (Milk Of Magnesia Susp) 30 ml Q12H PRN PO 04/18/17 14:00 05/18/17 13:59 Aspirin (Ecotrin Tab) 81 mg QAM PO 04/19/17 09:00 05/19/17 08:59 04/21/17 08:39 81 MG Ciprofloxacin/ Dextrose 200 mg/ Prmx 100 ml @ 100 mls/hr Q12 IV 04/18/17 16:00 04/28/17 15:59 04/21/17 08:38 100 MLS/HR Metronidazole 500 mg/Prmx 100 ml @ 100 mls/hr Q12 IV 04/18/17 18:00 04/28/17 17:59 04/21/17 08:38 100 MLS/HR Metoprolol Succinate (Toprol Xl Tab) 25 mg DAILY PO 04/19/17 09:00 05/19/17 08:59 04/21/17 08:39 25 MG Atorvastatin Calcium (Lipitor Tab) 10 mg QAM PO 04/18/17 16:00 05/18/17 15:59 04/21/17 08:39 10 MG Thiamine HCl (Vitamin B-1 Tab) 100 mg BID PO 04/20/17 21:00 04/24/17 09:00 04/21/17 08:39 100 MG Enteral Nutritional Formula (Boost) 1 can BID17 PO 04/20/17 17:00 05/20/17 16:59 04/20/17 17:33 1 CAN Potassium Chloride (Klor-Con Tab) 20 meq QAM PO 04/21/17 09:00 05/21/17 08:59 04/21/17 08:43 20 MEQ Pantoprazole Sodium (Protonix Tab) 40 mg QAM PO 04/22/17 09:00 05/22/17 08:59 Objective Vital Signs Date Time Temp Pulse Resp B/P (MAP) Pulse Ox O2 Delivery O2 Flow Rate FiO2 04/21/17 08:58 98 95 04/21/17 07:50 94 Room Air 04/21/17 07:12 36.7 82 20 135/65 (88) 94 Room Air 04/21/17 00:00 Room Air 04/20/17 23:43 36.5 87 20 118/68 (85) 94 Room Air 04/20/17 20:00 93 Room Air 04/20/17 16:26 Room Air 04/20/17 15:52 36.9 77 18 163/82 (109) 93 Room Air 04/20/17 14:53 93 96 Physical Exam General Appearance: WD/WN, no apparent distress Eyes: normal inspection, EOMI, sclerae normal ENT: normal ENT inspection, hearing grossly normal, pharynx normal Neck: supple, no adenopathy, no JVD, trachea midline Respiratory/Chest: chest non-tender, lungs clear, normal breath sounds, no respiratory distress, no accessory muscle use Cardiovascular: regular rate, rhythm, no edema, no gallop, no JVD, no murmur Abdomen: normal bowel sounds, soft, no organomegaly, + tenderness (LLQ, mild, no rebound or rigidity) Extremities: normal range of motion, non-tender, normal inspection, no pedal edema, no calf tenderness Neurologic/Psychiatric: mycology teacher II-XII nml as tested, no motor/sensory deficits, alert, normal mood/affect, oriented x 3 Skin: normal color, warm/dry, no rash Lymphatic: no adenopathy Laboratory Results Last 24 Hours Test 04/21/17 06:08 White Blood Count 7.33 K/uL Red Blood Count 3.31 M/uL Hemoglobin 10.2 g/dL Hematocrit 30.9 % Mean Corpuscular Volume 93.4 fL Mean Corpuscular Hemoglobin 30.8 pg Mean Corpuscular Hemoglobin Concent 33.0 g/dl RDW Standard Deviation 49.1 fL RDW Coefficient of Variation 14.4 % Platelet Count 376 K/uL Mean Platelet Volume 8.6 fL Sodium Level 145 mmol/L Potassium Level 3.3 mmol/L Chloride Level 115 mmol/L Carbon Dioxide Level 24 mmol/L Anion Gap 6.0 mmol/L Blood Urea Nitrogen 17 mg/dl Creatinine 0.72 mg/dl Est Creatinine Clear Calc Drug Dose 51.4 ml/min Estimated GFR () 95.9 Estimated GFR (Non- 82.7 BUN/Creatinine Ratio 23.9 Random Glucose 141 mg/dl Calcium Level 7.9 mg/dl Magnesium Level 2.2 mg/dl Total Bilirubin 0.3 mg/dl Direct Bilirubin 0.2 mg/dl Aspartate Amino Transf (AST/SGOT) 19 U/L Alanine Aminotransferase (ALT/SGPT) 16 U/L Alkaline Phosphatase 196 U/L Total Protein 5.0 gm/dl Albumin 1.6 gm/dl Assessment and Plan 89 years old man with past medical 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 Also has a large abdominal aortic aneurysm. Presented with intermittent chest pain and abdominal pain with diarrhea for the last month. Colitis: descending and sigmoid colon continues to improve on Cipro and Flagyl IV, change to PO today no role for steroids at this time C diff negative and stool cultures negative etiology would be ischemic colitis vs UC vs diverticulitis, doubt infectious etiology Epigastric pain: perhaps GERD, not a great historian will start Protonix to see if pain improves Chest pain rule out ACS no evidence of ACS, echo normal, appreciate cardiology consult Severe protein calorie malnutrition supplementation, per daughter, diarrhea for a month appreciate epic director input, give supplements, Thiamine, multivitamin AAA with extensive plaque, measured 6.5 x 6.2 cm, previously 6.4 x 6.0 cm today on 01/21/17 continue metoprolol Dyslipidemia, By history, patient is taking no medications Prostate cancer status post seeding in remission Colon cancer status post resection 2003 Arthritis Tylenol for pain Patient is currently limited code , no intubation or CPR plan for [facility] on Tuesday for assisted living
[2017-04-21 14:52] VITALS: BP 137/72; PULSE 71; TEMP 36.3; O2SAT 94
[2017-04-21] MEDS: METRONIDAZOLE 500 MG TAB PO SCH ×2 (15:24→22:25)
[2017-04-21 16:00] VITALS: O2SAT 94
[2017-04-21] MEDS ORDERED: NURSING VERBAL MED ORDER ONE (18:45)
[2017-04-21] MEDS ORDERED: TRAZODONE HCL 50 MG TAB PO SCH (21:00)
[2017-04-21] MEDS: CIPROFLOXACIN 500 MG TAB PO SCH (22:19)
[2017-04-22 00:14] VITALS: BP 103/63; PULSE 89; TEMP 36.6; O2SAT 93
[2017-04-22 07:20] VITALS: BP 100/62; PULSE 79; TEMP 36.6; O2SAT 94
[2017-04-22 08:19] VITALS: BP 102/64; PULSE 83; TEMP 36.2; O2SAT 92
[2017-04-22 08:22] VITALS: O2SAT 92
[2017-04-22] MEDS: BOOST VANILLA PO SCH ×4 (09:00→17:21)
[2017-04-22] MEDS: ATORVASTATIN 10 MG TAB PO SCH (09:23)
[2017-04-22] MEDS: PANTOprazole SOD 40 MG TAB PO SCH (09:23)
[2017-04-22] MEDS: ASPIRIN 81 MG ECTAB PO SCH (09:23)
[2017-04-22] MEDS: METOPROLOL SUCC 25MG EXT REL TAB PO SCH (09:23)
[2017-04-22] MEDS: THIAMINE HCL 100 MG TAB PO SCH ×2 (09:23→22:10)
[2017-04-22] MEDS: CIPROFLOXACIN 500 MG TAB PO SCH ×2 (09:24→22:09)
[2017-04-22] MEDS: METRONIDAZOLE 500 MG TAB PO SCH ×3 (09:24→22:09)
[2017-04-22] MEDS: POTASSIUM CHLORIDE 20 MEQ TABCR PO SCH (09:25)
[2017-04-22] MEDS: HEPARIN SOD 5000 UNIT/0.5 ML CARP SQ SCH ×2 (09:26→22:12)
[2017-04-22] MEDS ORDERED: GI COCKTAIL PO ONE (11:00)
[2017-04-22] MEDS ORDERED: ALUMINUM/MAGNESIUM SUSP 18 ML, LIDOCAINE HCL 2% VISCOUS SOLN 6 ML, BARCODE IDENTIFIER 1 EA PO ONE ×2 (11:15)
[2017-04-22] MEDS ORDERED: LOPERAMIDE HCL 2 MG CAP PO PRN (11:45)
--- NOTE | 2017-04-22 13:26 | Medical Student: [facility] ---
Med Student Progress Note Date of Service Apr 22, 2017. Subjective Pt evaluation today including: conversation w/ patient, physical exam, chart review, lab review, review of studies Voiding: no voiding problems Mr. Steven Sparks is an 89 year old gentleman with PMH of moderately differentiated invasive mucinous adenocarcinoma (resected in 2003), possible ulcerative colitis (), a large abdominal aortic aneurysm, prostate cancer s /p seeding, and mild dementia who was admitted on 04/18/17 for intermittent chest pain and abdominal pain with diarrhea for [address] and abdomen with contrast that revealed thickened colon wall wall/colitis and he was admitted for treatment of beltre-colitis with antibiotics and IV hydration. Hospital Day 4: No acute events overnight. He reports mild abdominal discomfort but cannot specify the pain further. He is a poor historian due to underlying dementia. He points to his epigastric region and left chest and indicates mild pain. He ate some breakfast, but has decreased appetite. Per nursing, he had 6 loose stools yesterday and 1 loose stool this morning. Review of Systems Constitutional: + weight loss, + weakness, + fatigue, No fever, No chills Eyes: No redness, No discharge ENT: No nasal symptoms, No sore throat Respiratory: No cough, No wheezing, No shortness of breath Cardiac: + chest pain, No palpitations Abdomen: + pain, + diarrhea, No nausea, No vomiting, No constipation Musculoskeletal: No muscle pain, No calf pain Male : No dysuria, No urinary frequency Neurologic: + memory loss, + weakness, No numbness/tingling Psychiatric: + depression symptoms, No anxiety Heme: No abnormal bleeding/bruising, No clotting problems Endo: No excessive thirst, No excessive urination Skin: No rash, No itch Objective Vital Signs Date Time Temp Pulse Resp B/P (MAP) Pulse Ox O2 Delivery O2 Flow Rate FiO2 04/22/17 08:22 92 Room Air 04/22/17 08:19 36.2 83 17 102/64 (77) 92 Room Air 04/22/17 07:20 36.6 79 18 100/62 (75) 94 Room Air 04/22/17 00:14 36.6 89 20 103/63 (76) 93 Room Air 04/22/17 00:00 Room Air 04/21/17 20:00 Room Air 04/21/17 16:00 94 Room Air 04/21/17 14:52 36.3 71 20 137/72 (93) 94 Room Air Physical Exam General Appearance: no apparent distress, + cachetic Eyes: bilateral eyes normal inspection ENT: normal ENT inspection, hearing grossly normal Neck: supple, no adenopathy, thyroid normal, trachea midline Respiratory/Chest: chest non-tender, lungs clear, normal breath sounds, no respiratory distress, no accessory muscle use Cardiovascular: regular rate, rhythm, no edema, no gallop, no murmur Abdomen: normal bowel sounds, non tender, soft, no organomegaly Extremities: normal range of motion, non-tender, normal inspection, no pedal edema, no calf tenderness Neurologic/Psychiatric: no motor/sensory deficits, alert, + depressed affect, + disoriented Skin: normal color, warm/dry, no rash Lymphatic: no adenopathy Laboratory Results Last Resulted CBC 04/21/17 06:08 Last Resulted BMP 04/21/17 06:08 Medications Current Inpatient Medications Medications (Trade) Dose Ordered Sig/Joey Route Start Time Stop Time Status Last Admin Dose Admin Heparin Sodium (Porcine) (Heparin Sq 5000 Unit/0.5ml) 5,000 unit Q12 SQ 04/18/17 21:00 05/18/17 20:59 04/22/17 09:26 5,000 UNIT Acetaminophen (Tylenol Tab) 650 mg Q4H PRN PO 04/18/17 14:00 05/18/17 13:59 Al Hydrox/Mg Hydrox/Simethicone (Maalox Max Susp) 15 ml Q4H PRN PO 04/18/17 14:00 05/18/17 13:59 Magnesium Hydroxide (Milk Of Magnesia Susp) 30 ml Q12H PRN PO 04/18/17 14:00 05/18/17 13:59 Aspirin (Ecotrin Tab) 81 mg QAM PO 04/19/17 09:00 05/19/17 08:59 04/22/17 09:23 81 MG Metoprolol Succinate (Toprol Xl Tab) 25 mg DAILY PO 04/19/17 09:00 05/19/17 08:59 04/22/17 09:23 25 MG Atorvastatin Calcium (Lipitor Tab) 10 mg QAM PO 04/18/17 16:00 05/18/17 15:59 04/22/17 09:23 10 MG Thiamine HCl (Vitamin B-1 Tab) 100 mg BID PO 04/20/17 21:00 04/24/17 09:00 04/22/17 09:23 100 MG Enteral Nutritional Formula (Boost) 1 can BID17 PO 04/20/17 17:00 05/20/17 16:59 04/22/17 09:00 1 CAN Potassium Chloride (Klor-Con Tab) 20 meq QAM PO 04/21/17 09:00 05/21/17 08:59 04/22/17 09:25 20 MEQ Pantoprazole Sodium (Protonix Tab) 40 mg QAM PO 04/22/17 09:00 05/22/17 08:59 04/22/17 09:23 40 MG Metronidazole (Flagyl Tab) 500 mg TID PO 04/21/17 15:00 05/01/17 14:59 04/22/17 09:24 500 MG Ciprofloxacin (Cipro Tab) 500 mg BID PO 04/21/17 21:00 05/01/17 20:59 04/22/17 09:24 500 MG Trazodone HCl (Desyrel Tab) 50 mg HS PO 04/21/17 21:00 05/21/17 20:59 04/21/17 22:23 50 MG Loperamide HCl (Imodium Cap) 2 mg Q6 PRN PO 04/22/17 11:45 05/22/17 11:44 Assessment and Plan Assessment and Plan: ASSESSMENT: Mr. 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 and abdomen with contrast that revealed thickened colon wall wall/colitis and he was admitted for treatment of beltre-colitis with antibiotics and IV hydration. PLAN: Beltre-Colitis, descending amd sigmoid colon Etiology would be ischemic colitis vs UC vs diverticulitis. Infectious etiology is less likely given negative stool cultures and negative C. difficile STOP IVF to NSS + 40 mEq potassium STOP IV Cipro/Flagyl Start po Ciprofloxacin (Cipro Tab) 500 mg po BID x 10 day course Start po Metronidazole (Flagyl Tab)500 mg TID Start Loperamide HCl (Imodium Cap) 2 mg po Q6 PRN Heme positive stool No indication for steroids at this time GI consultation appreciated - Patient is not interested in further GI testing at this time Epigastric pain, likely due to GERD Continue pantoprazole 40 mg qAM - unclear if pain has improved with Protonix Chest pain, rule out ACS Possible ischemia/history is limited unable to ensure his stable angina Serial cardiac enzymes negative 2D Echo: Aortic valve sclerosis moderate, without significant aortic valvular stenosis. EF > 70% Appreciate cardiology consult Severe protein calorie malnutrition, failure to thrive Continue nutritional supplement- Enteral Nutritional Formula (Boost)1 can BID Advance diet as tolerated Continue thiamine 100 mg BID Continue multivitamin Hypokalemia Potassium 3.3 Continue Potassium Chloride (Klor-Con Tab) 20 meq QAM AAA with extensive plaque, measured 6.5 x 6.2 cm, previously 6.4 x 6.0 cm today on 01/21/17 Continue metoprolol Continue Atorvastatin Calcium (Lipitor Tab) 10 mg po QAM Dyslipidemia Lipid panel this admission: TG 109, Chol 75, LDL 30, HDL 23 Continue Atorvastatin Calcium (Lipitor Tab) 10 mg po QAM Check CK and LFTs in 2 weeks as an outpatient Prostate cancer status post seeding UA: highly concentrated, positive for ketones and occult blood In remission Colon cancer status post resection 2003 Stool Heme occult positive Arthritis Tylenol for pain PRN Code Patient is currently limited code , no intubation or CPR DVT prophylaxis Continue heparin SQ Dispo Remain on medical floor Discharge to [facility], directly from the hospital on Tuesday04/25/17
[2017-04-22 14:42] VITALS: BP 106/64; PULSE 76; TEMP 36.6; O2SAT 96
--- NOTE | 2017-04-22 14:56 | Progress Note ---
Subjective Date of Service: Apr 22, 2017. Subjective Pt evaluation today including: conversation w/ patient, physical exam, review of inpatient medication list Pain: still c/o LLQ pain and epigastric pain PO Intake: poor intake Voiding: no voiding problems no real change in patient today very tired, depressed poor appetite continues to have diarrhea, 6 BM yesterday added Protonix yesterday for epigastric pain, no improvement tried GI cocktail, no help EKG normal Problem List Medical Problems: (1) Cachexia Status: Acute (2) Colitis Status: Acute (3) Dehydration Status: Acute (4) Failure to thrive Status: Acute (5) Malnutrition Status: Acute Review of Systems Constitutional: + weakness, + fatigue Abdomen: + diarrhea Neurologic: + memory loss, + weakness, + balance problems Psychiatric: + depression symptoms All Other Systems: Reviewed and Negative Medications Current Inpatient Medications Medications (Trade) Dose Ordered Sig/Joey Route Start Time Stop Time Status Last Admin Dose Admin Heparin Sodium (Porcine) (Heparin Sq 5000 Unit/0.5ml) 5,000 unit Q12 SQ 04/18/17 21:00 05/18/17 20:59 04/22/17 09:26 5,000 UNIT Acetaminophen (Tylenol Tab) 650 mg Q4H PRN PO 04/18/17 14:00 05/18/17 13:59 Al Hydrox/Mg Hydrox/Simethicone (Maalox Max Susp) 15 ml Q4H PRN PO 04/18/17 14:00 05/18/17 13:59 Magnesium Hydroxide (Milk Of Magnesia Susp) 30 ml Q12H PRN PO 04/18/17 14:00 05/18/17 13:59 Aspirin (Ecotrin Tab) 81 mg QAM PO 04/19/17 09:00 05/19/17 08:59 04/22/17 09:23 81 MG Metoprolol Succinate (Toprol Xl Tab) 25 mg DAILY PO 04/19/17 09:00 05/19/17 08:59 04/22/17 09:23 25 MG Atorvastatin Calcium (Lipitor Tab) 10 mg QAM PO 04/18/17 16:00 05/18/17 15:59 04/22/17 09:23 10 MG Thiamine HCl (Vitamin B-1 Tab) 100 mg BID PO 04/20/17 21:00 04/24/17 09:00 04/22/17 09:23 100 MG Enteral Nutritional Formula (Boost) 1 can BID17 PO 04/20/17 17:00 05/20/17 16:59 04/22/17 09:00 1 CAN Potassium Chloride (Klor-Con Tab) 20 meq QAM PO 04/21/17 09:00 05/21/17 08:59 04/22/17 09:25 20 MEQ Pantoprazole Sodium (Protonix Tab) 40 mg QAM PO 04/22/17 09:00 05/22/17 08:59 04/22/17 09:23 40 MG Metronidazole (Flagyl Tab) 500 mg TID PO 04/21/17 15:00 05/01/17 14:59 04/22/17 14:16 500 MG Ciprofloxacin (Cipro Tab) 500 mg BID PO 04/21/17 21:00 05/01/17 20:59 04/22/17 09:24 500 MG Trazodone HCl (Desyrel Tab) 50 mg HS PO 04/21/17 21:00 05/21/17 20:59 04/21/17 22:23 50 MG Loperamide HCl (Imodium Cap) 2 mg Q6 PRN PO 04/22/17 11:45 05/22/17 11:44 Objective Vital Signs Date Time Temp Pulse Resp B/P (MAP) Pulse Ox O2 Delivery O2 Flow Rate FiO2 04/22/17 14:42 36.6 76 20 106/64 (78) 96 Room Air 04/22/17 08:22 92 Room Air 04/22/17 08:19 36.2 83 17 102/64 (77) 92 Room Air 04/22/17 07:20 36.6 79 18 100/62 (75) 94 Room Air 04/22/17 00:14 36.6 89 20 103/63 (76) 93 Room Air 04/22/17 00:00 Room Air 04/21/17 20:00 Room Air 04/21/17 16:00 94 Room Air 04/21/17 14:52 36.3 71 20 137/72 (93) 94 Room Air Physical Exam General Appearance: WD/WN, no apparent distress Eyes: normal inspection, EOMI, sclerae normal ENT: normal ENT inspection, hearing grossly normal, pharynx normal Neck: supple, no adenopathy, no JVD, trachea midline Respiratory/Chest: chest non-tender, lungs clear, normal breath sounds, no respiratory distress, no accessory muscle use Cardiovascular: regular rate, rhythm, no edema, no gallop, no JVD, no murmur Abdomen: normal bowel sounds, non tender, soft, no organomegaly Extremities: normal range of motion, non-tender, normal inspection, no pedal edema, no calf tenderness, pelvis stable Neurologic/Psychiatric: regulatory attorney II-XII nml as tested, no motor/sensory deficits, alert, oriented x 3, + depressed affect Skin: normal color, warm/dry, no rash Lymphatic: no adenopathy Assessment and Plan 89 years old man with past medical 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 Also has a large abdominal aortic aneurysm. Presented with intermittent chest pain and abdominal pain with diarrhea for the last month. Colitis: descending and sigmoid colon more diarrhea yesterday despite Cipro and Flagyl will add Imodium PRN to see if it improves no role for steroids at this time, no clear diagnosis of UC C diff negative and stool cultures negative etiology would be ischemic colitis vs UC vs diverticulitis, doubt infectious etiology Epigastric pain: perhaps GERD, not a great historian no improvement with Protonix or GI cocktail Chest pain rule out ACS no evidence of ACS, echo normal, appreciate cardiology consult repeat EKG today normal sinus rhythm, no ischemic changes Severe protein calorie malnutrition supplementation, per daughter, diarrhea for a month appreciate front office attendant input, give supplements, Thiamine, multivitamin add Remeron to try to improve appetite and mood AAA with extensive plaque, measured 6.5 x 6.2 cm, previously 6.4 x 6.0 cm on 01/21 continue metoprolol Dyslipidemia, By history, patient is taking no medications Prostate cancer status post seeding in remission Colon cancer status post resection 2003 Arthritis Tylenol for pain Patient is currently limited code , no intubation or CPR plan for [facility], now more likely on Tuesday
[2017-04-22] MEDS: MIRTAZAPINE TAB 15 MG TAB PO SCH (22:10)
[2017-04-23] VITALS: O2SAT 93
[2017-04-23] MEDS: THIAMINE HCL 100 MG TAB PO SCH ×2 (07:54→20:27)
[2017-04-23] MEDS: POTASSIUM CHLORIDE 20 MEQ TABCR PO SCH (07:54)
[2017-04-23] MEDS: METRONIDAZOLE 500 MG TAB PO SCH (07:54)
[2017-04-23] MEDS: CIPROFLOXACIN 500 MG TAB PO SCH (07:54)
[2017-04-23] MEDS: BOOST VANILLA PO SCH ×4 (07:58→15:34)
[2017-04-23 07:59] VITALS: BP 120/68; PULSE 77; TEMP 36.6; O2SAT 95
[2017-04-23 08:00] VITALS: O2SAT 95
[2017-04-23] MEDS: ASPIRIN 81 MG ECTAB PO SCH (09:04)
[2017-04-23] MEDS: PANTOprazole SOD 40 MG TAB PO SCH (09:04)
[2017-04-23] MEDS: ATORVASTATIN 10 MG TAB PO SCH (09:04)
[2017-04-23] MEDS: METOPROLOL SUCC 25MG EXT REL TAB PO SCH (09:04)
[2017-04-23] MEDS: HEPARIN SOD 5000 UNIT/0.5 ML CARP SQ SCH ×2 (09:06→20:31)
--- NOTE | 2017-04-23 14:51 | Progress Note ---
Subjective Date of Service: Apr 23, 2017. Subjective Pt evaluation today including: conversation w/ patient, physical exam, lab review Pain: mild abdominal pain PO Intake: poor Voiding: no voiding problems still little improvement in abdominal pain, still with loose stools per RN complaining of having to take so many medications, especially antibiotics appears to not have any response to antibiotics poor appetite, depressed mood, just wants to go home Problem List Medical Problems: (1) Cachexia Status: Acute (2) Colitis Status: Acute (3) Dehydration Status: Acute (4) Failure to thrive Status: Acute (5) Malnutrition Status: Acute Review of Systems Constitutional: + weakness, + fatigue Abdomen: + pain, + diarrhea All Other Systems: Reviewed and Negative Medications Current Inpatient Medications Medications (Trade) Dose Ordered Sig/Joey Route Start Time Stop Time Status Last Admin Dose Admin Heparin Sodium (Porcine) (Heparin Sq 5000 Unit/0.5ml) 5,000 unit Q12 SQ 04/18/17 21:00 05/18/17 20:59 04/23/17 09:06 5,000 UNIT Acetaminophen (Tylenol Tab) 650 mg Q4H PRN PO 04/18/17 14:00 05/18/17 13:59 Al Hydrox/Mg Hydrox/Simethicone (Maalox Max Susp) 15 ml Q4H PRN PO 04/18/17 14:00 05/18/17 13:59 Magnesium Hydroxide (Milk Of Magnesia Susp) 30 ml Q12H PRN PO 04/18/17 14:00 05/18/17 13:59 Aspirin (Ecotrin Tab) 81 mg QAM PO 04/19/17 09:00 05/19/17 08:59 04/23/17 09:04 81 MG Metoprolol Succinate (Toprol Xl Tab) 25 mg DAILY PO 04/19/17 09:00 05/19/17 08:59 04/23/17 09:04 25 MG Atorvastatin Calcium (Lipitor Tab) 10 mg QAM PO 04/18/17 16:00 05/18/17 15:59 04/23/17 09:04 10 MG Thiamine HCl (Vitamin B-1 Tab) 100 mg BID PO 04/20/17 21:00 04/24/17 09:00 04/23/17 07:54 100 MG Enteral Nutritional Formula (Boost) 1 can BID17 PO 04/20/17 17:00 05/20/17 16:59 04/23/17 07:58 1 CAN Potassium Chloride (Klor-Con Tab) 20 meq QAM PO 04/21/17 09:00 05/21/17 08:59 04/23/17 07:54 20 MEQ Pantoprazole Sodium (Protonix Tab) 40 mg QAM PO 04/22/17 09:00 05/22/17 08:59 04/23/17 09:04 40 MG Loperamide HCl (Imodium Cap) 2 mg Q6 PRN PO 04/22/17 11:45 05/22/17 11:44 Mirtazapine (Remeron Tab) 15 mg HS PO 04/22/17 21:00 05/22/17 20:59 04/22/17 22:10 15 MG Prednisone (PredniSONE TAB) 20 mg QAM PO 04/24/17 09:00 05/24/17 08:59 Objective Vital Signs Date Time Temp Pulse Resp B/P (MAP) Pulse Ox O2 Delivery O2 Flow Rate FiO2 04/23/17 08:00 95 Room Air 04/23/17 07:59 36.6 77 18 120/68 (85) 95 Room Air 04/23/17 00:00 93 Room Air 04/22/17 16:00 Room Air Physical Exam General Appearance: no apparent distress, + thin Respiratory/Chest: chest non-tender, lungs clear, normal breath sounds, no respiratory distress, no accessory muscle use Cardiovascular: regular rate, rhythm, no edema, no gallop, no JVD, no murmur Abdomen: normal bowel sounds, soft, no organomegaly, + tenderness (LLQ and epigastric) Extremities: normal range of motion, non-tender, normal inspection, no pedal edema, no calf tenderness Neurologic/Psychiatric: biology manager II-XII nml as tested, no motor/sensory deficits, alert, oriented x 3, + depressed affect Skin: normal color, warm/dry, no rash Assessment and Plan 89 years old man with past medical 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 Also has a large abdominal aortic aneurysm. Presented with intermittent chest pain and abdominal pain with diarrhea for the last month. Colitis: descending and sigmoid colon continues to have diarrhea despite Cipro and Flagyl for 5 days Imodium PRN but not helping had remote h/o UC reported, could this be inflammatory? will stop antibiotics , start Prednisone to look for improvement C diff negative and stool cultures negative no other etiology of pain seen on CT, pancreas normal, lipase normal Epigastric pain: perhaps GERD, not a great historian no improvement with Protonix or GI cocktail unclear etiology Chest pain rule out ACS no evidence of ACS, echo normal, appreciate cardiology consult repeat EKG 04/22 normal sinus rhythm, no ischemic changes Depression: regarding situation with in SNF, he cannot be home, cannot eat started Remeron 15mg HS to help mood and appetite may need additional medication overall will not be happy when he goes to [facility] personal care Severe protein calorie malnutrition supplementation, per daughter, diarrhea for a month appreciate e tailer input, give supplements, Thiamine, multivitamin add Remeron to try to improve appetite and mood perhaps Prednisone will help as well AAA with extensive plaque, measured 6.5 x 6.2 cm, previously 6.4 x 6.0 cm on 01/21 continue metoprolol Dyslipidemia, By history, patient is taking no medications Prostate cancer status post seeding in remission Colon cancer status post resection 2003 Arthritis Tylenol for pain Patient is currently limited code , no intubation or CPR plan for [facility] on Tuesday
[2017-04-23 16:17] VITALS: BP 105/63; PULSE 77; TEMP 36.4; O2SAT 93
[2017-04-23] MEDS: MIRTAZAPINE TAB 15 MG TAB PO SCH (20:27)
[2017-04-23] MEDS: ACETAMINOPHEN 325 MG TAB PO PRN (20:27)
[2017-04-23 23:32] VITALS: BP 157/90; PULSE 72; TEMP 36.7; O2SAT 95
[2017-04-24 06:34] LABS: HEMATOCRIT 32.9 % (42-52); MEAN CELL VOLUME 94.3 fL (80-100); MEAN CORPUSCULAR HEMOGLOBIN 31.8 pg (25-34); MEAN CORPUSCULAR HGB CONC 33.7 g/dl (32-36); PLATELET COUNT 433 K/uL (130-400); RED BLOOD COUNT 3.49 M/uL (4.7-6.1); WHITE BLOOD COUNT 8.11 K/uL (4.8-10.8)
[2017-04-24 07:43] VITALS: BP 126/69; PULSE 81; TEMP 36.7; O2SAT 95
[2017-04-24 08:00] VITALS: O2SAT 95
[2017-04-24] MEDS: BOOST VANILLA PO SCH ×4 (08:22→16:40)
[2017-04-24] MEDS: METOPROLOL SUCC 25MG EXT REL TAB PO SCH (08:23)
[2017-04-24] MEDS: PANTOprazole SOD 40 MG TAB PO SCH (08:23)
[2017-04-24] MEDS: ATORVASTATIN 10 MG TAB PO SCH (08:23)
[2017-04-24] MEDS: POTASSIUM CHLORIDE 20 MEQ TABCR PO SCH (08:23)
[2017-04-24] MEDS: THIAMINE HCL 100 MG TAB PO SCH (08:23)
[2017-04-24] MEDS: ASPIRIN 81 MG ECTAB PO SCH (08:23)
[2017-04-24] MEDS: HEPARIN SOD 5000 UNIT/0.5 ML CARP SQ SCH ×2 (08:42→20:38)
[2017-04-24 15:58] VITALS: BP 111/55; PULSE 71; TEMP 36.4; O2SAT 96
--- NOTE | 2017-04-24 16:31 | Progress Note ---
Subjective Date of Service: Apr 24, 2017. Subjective Pt evaluation today including: conversation w/ patient, physical exam, review of inpatient medication list Pain: says pain is better PO Intake: poor per RN Voiding: no voiding problems no diarrhea today however, very poor oral intake despite Prednisone and Remeron patient very depressed concerned that his appetite not improving will ask psychiatry to evaluate tomorrow, any other thoughts to help mood Problem List Medical Problems: (1) Cachexia Status: Acute (2) Colitis Status: Acute (3) Dehydration Status: Acute (4) Failure to thrive Status: Acute (5) Malnutrition Status: Acute Review of Systems Constitutional: + weakness, + fatigue Abdomen: + pain (LLQ) All Other Systems: Reviewed and Negative Medications Current Inpatient Medications Medications (Trade) Dose Ordered Sig/Joey Route Start Time Stop Time Status Last Admin Dose Admin Heparin Sodium (Porcine) (Heparin Sq 5000 Unit/0.5ml) 5,000 unit Q12 SQ 04/18/17 21:00 05/18/17 20:59 04/24/17 08:42 5,000 UNIT Acetaminophen (Tylenol Tab) 650 mg Q4H PRN PO 04/18/17 14:00 05/18/17 13:59 04/23/17 20:27 650 MG Al Hydrox/Mg Hydrox/Simethicone (Maalox Max Susp) 15 ml Q4H PRN PO 04/18/17 14:00 05/18/17 13:59 Magnesium Hydroxide (Milk Of Magnesia Susp) 30 ml Q12H PRN PO 04/18/17 14:00 05/18/17 13:59 Aspirin (Ecotrin Tab) 81 mg QAM PO 04/19/17 09:00 05/19/17 08:59 04/24/17 08:23 81 MG Metoprolol Succinate (Toprol Xl Tab) 25 mg DAILY PO 04/19/17 09:00 05/19/17 08:59 04/24/17 08:23 25 MG Atorvastatin Calcium (Lipitor Tab) 10 mg QAM PO 04/18/17 16:00 05/18/17 15:59 04/24/17 08:23 10 MG Enteral Nutritional Formula (Boost) 1 can BID17 PO 04/20/17 17:00 05/20/17 16:59 04/23/17 15:34 1 CAN Potassium Chloride (Klor-Con Tab) 20 meq QAM PO 04/21/17 09:00 05/21/17 08:59 04/24/17 08:23 20 MEQ Pantoprazole Sodium (Protonix Tab) 40 mg QAM PO 04/22/17 09:00 05/22/17 08:59 04/24/17 08:23 40 MG Loperamide HCl (Imodium Cap) 2 mg Q6 PRN PO 04/22/17 11:45 05/22/17 11:44 Mirtazapine (Remeron Tab) 15 mg HS PO 04/22/17 21:00 05/22/17 20:59 04/23/17 20:27 15 MG Prednisone (PredniSONE TAB) 20 mg QAM PO 04/24/17 09:00 05/24/17 08:59 04/24/17 08:22 20 MG Objective Vital Signs Date Time Temp Pulse Resp B/P (MAP) Pulse Ox O2 Delivery O2 Flow Rate FiO2 04/24/17 16:00 Room Air 04/24/17 15:58 36.4 71 16 111/55 (73) 96 Room Air 04/24/17 08:00 95 Room Air 04/24/17 07:43 36.7 81 16 126/69 (88) 95 Room Air 04/24/17 00:45 Room Air 04/23/17 23:32 36.7 72 20 157/90 (112) 95 Room Air Physical Exam General Appearance: no apparent distress, + thin ENT: normal ENT inspection, hearing grossly normal, pharynx normal Neck: supple, no adenopathy, no JVD, trachea midline Respiratory/Chest: chest non-tender, lungs clear, normal breath sounds, no respiratory distress, no accessory muscle use Cardiovascular: regular rate, rhythm, no edema, no gallop, no JVD, no murmur Abdomen: normal bowel sounds, soft, no organomegaly, + tenderness (mild LLQ pain, not as bad as yesterday) Extremities: normal range of motion, non-tender, normal inspection, no pedal edema, no calf tenderness, pelvis stable Neurologic/Psychiatric: service desk agent II-XII nml as tested, no motor/sensory deficits, alert, oriented x 3, + depressed affect Skin: normal color, warm/dry, no rash Laboratory Results Last 24 Hours Test 04/24/17 06:06 White Blood Count 8.11 K/uL Red Blood Count 3.49 M/uL Hemoglobin 11.1 g/dL Hematocrit 32.9 % Mean Corpuscular Volume 94.3 fL Mean Corpuscular Hemoglobin 31.8 pg Mean Corpuscular Hemoglobin Concent 33.7 g/dl RDW Standard Deviation 49.1 fL RDW Coefficient of Variation 14.5 % Platelet Count 433 K/uL Mean Platelet Volume 9.0 fL Assessment and Plan 89 years old man with past medical 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 Also has a large abdominal aortic aneurysm. Presented with intermittent chest pain and abdominal pain with diarrhea for the last month. Colitis: descending and sigmoid colon continued to have diarrhea despite Cipro and Flagyl for 5 days so abx stopped on 04/23 Imodium PRN but not helping had remote h/o UC reported, could this be inflammatory? started on Prednisone 20mg daily, some mild improvement in pain today C diff negative and stool cultures negative no other etiology of pain seen on CT, pancreas normal, lipase normal Epigastric pain: perhaps GERD, not a great historian no improvement with Protonix or GI cocktail unclear etiology Chest pain rule out ACS no evidence of ACS, echo normal, appreciate cardiology consult repeat EKG 04/22 normal sinus rhythm, no ischemic changes Severe Depression: regarding situation with in SNF, he cannot be home, cannot eat started Remeron 15mg HS to help mood and appetite hoping Prednisone may make him more hungry will ask Psychiatry to evaluate, patient exhibiting signs of failure to thrive if his appetite does not improve then he will deteriorate further Severe protein calorie malnutrition supplementation, per daughter, diarrhea for a month appreciate needle board repairer input, give supplements, Thiamine, multivitamin add Remeron to try to improve appetite and mood perhaps Prednisone will help as well AAA with extensive plaque, measured 6.5 x 6.2 cm, previously 6.4 x 6.0 cm on 01/21 continue metoprolol Dyslipidemia, By history, patient is taking no medications Prostate cancer status post seeding in remission Colon cancer status post resection 2003 Arthritis Tylenol for pain Patient is currently limited code , no intubation or CPR plan for [facility] on Tuesday, look for recommendations from psychiatry
[2017-04-24] MEDS: MIRTAZAPINE TAB 15 MG TAB PO SCH (20:28)
[2017-04-24] MEDS: ACETAMINOPHEN 325 MG TAB PO PRN (20:29)
[2017-04-25 00:43] VITALS: BP 105/65; PULSE 62; TEMP 36.4; O2SAT 94
[2017-04-25 06:03] LABS: BUN/CREATININE RATIO 20.6 (10-20); CALCIUM 7.9 mg/dl (8.5-10.1); CREATININE 0.83 mg/dl (0.60-1.40); POTASSIUM 3.7 mmol/L (3.5-5.1)
[2017-04-25 07:49] VITALS: BP 121/73; PULSE 70; TEMP 36.6; O2SAT 96
[2017-04-25 08:00] VITALS: BP 115/66; PULSE 64; TEMP 36.4; O2SAT 95
[2017-04-25] MEDS: ASPIRIN 81 MG ECTAB PO SCH (08:40)
[2017-04-25] MEDS: PANTOprazole SOD 40 MG TAB PO SCH (08:40)
[2017-04-25] MEDS: POTASSIUM CHLORIDE 20 MEQ TABCR PO SCH (08:40)
[2017-04-25] MEDS: ATORVASTATIN 10 MG TAB PO SCH (08:40)
[2017-04-25] MEDS: METOPROLOL SUCC 25MG EXT REL TAB PO SCH (08:41)
[2017-04-25] MEDS: HEPARIN SOD 5000 UNIT/0.5 ML CARP SQ SCH ×2 (08:42→20:23)
[2017-04-25] MEDS: BOOST VANILLA PO SCH ×4 (08:46→17:00)
--- NOTE | 2017-04-25 09:04 | Psychiatric Consultation ---
Consultation Date of Consultation Apr 25, 2017. Identifying Data 89 yo male lives alone in [place]. Admit 04/18 for colitis/dehydration, family has reported failure to thrive at home. Consult is for depression and poor PO intake. Chief Complaint "I miss my ". History of Present Illness Patient was seen on consult service in 2003 for adjustment issues with anxiety due to worries about his 's health and finances. She has been living at a facility for some time and moved to [place] 5 months ago so less contact. 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 He reports that his [id number] preps meals for him but admittedly self-care is declining as feelings of hopelessness about aging. He often doesn't believe that he will get better. He was started on Remeron here in the hospital. He is still not eating the best but still c/o abdominal pain from his colitis. Diarrhea is minimally improved by his report. He is accepting of the fact that he needs to go to a prison. He does mention that he feels ready to "go to the place with the headstone" but has no intention of harming himself, just recognizes he is older. Past Psychiatric History Current OP Treatment: no current treatment Prior OP Treatment: no prior treatment Access to a Gun: No (as will be discharging to prison) Suicide Attempts: No Past Medical/Surgical History (1) Cataract Nos (2) Diverticulosis Colon (W/O Ment Of Hemorrhage) (3) Hx-Prostatic Malignancy (4) Ulcerative Colitis, Unspecified (5) Closed head injury (6) Dehydration (7) Failure to thrive Allergies Allergies: Coded Allergies: No Known Allergies (Verified , 04/18/17) Home Medications Scheduled Metoprolol Succinate (Metoprolol Succinate ER), 25 MG PO DAILY Family History History of Suicide: No History of Substance Abuse: No Alcohol Use Alcohol Use In Past 12 Months: No Smoking Use Smoking Status: Former Smoker Substance History denied Personal History Lives in: [place] 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 Examination Vital Signs Vital Signs Past 12 Hours Date Time Temp Pulse Resp B/P (MAP) Pulse Ox O2 Delivery O2 Flow Rate FiO2 04/25/17 08:00 36.4 64 21 115/66 (82) 95 Room Air 04/25/17 07:49 36.6 70 16 121/73 (89) 96 Room Air 04/25/17 00:43 36.4 62 16 105/65 (78) 94 Room Air 04/25/17 00:00 Room Air Laboratory Results Last 24 Hours Test 04/25/17 05:08 Sodium Level 146 mmol/L Potassium Level 3.7 mmol/L Chloride Level 114 mmol/L Carbon Dioxide Level 29 mmol/L Anion Gap 3.0 mmol/L Blood Urea Nitrogen 17 mg/dl Creatinine 0.83 mg/dl Est Creatinine Clear Calc Drug Dose 44.5 ml/min Estimated GFR () 90.4 Estimated GFR (Non- 78.0 BUN/Creatinine Ratio 20.6 Random Glucose 131 mg/dl Calcium Level 7.9 mg/dl Mental Examination During interview pt is: alert and oriented (to self) Appearance: appropriately groomed Eye contact is: fair Motor behavior is: no abnormal motor movements Speech: normal in rate, rhythm & volume Affect: depressed Mood is: depressed Thought process: clear, coherent Thought content: reality based without delusions Suicidal thought are: denied Homicidal thoughts are: denied Hallucinations: denies auditory, denies visual Cognition: language grossly intact Insight: fair Judgement: fair Impression / Recommendations Impression 89 yo male with depressive symptoms in context of declining health, has been on Remeron for a few days and will be transferring to SNF Recommendations patient is psychiatrically stable for discharge to appropriate level of nursing care (anticipated today) has only been on Remeron for a few days and colitis is still resolving, wouldn' t increase for 2 more weeks given age/clearance. there is no indication for inpatient psychiatric hospitalization
[2017-04-25 09:10] VITALS: O2SAT 95
[2017-04-25] MEDS ORDERED: D5W AND 1/4NSS + 20MEQ KCL 1,000 ML IV SCH (11:30)
[2017-04-25 12:39] LABS: C-REACTIVE PROTEIN 0.86 mg/dl (0-0.29); FERRITIN 236.8 ng/ml (8.0-388.0)
[2017-04-25] MEDS: METRONIDAZOLE 500 MG TAB PO SCH ×2 (13:35→20:17)
[2017-04-25] MEDS: CEROVITE ADV FORMULA TAB PO SCH (13:35)
[2017-04-25] MEDS: METHYLPREDNISOLONE IV 20 MG in SYRINGE 0 ML IV SCH ×2 (13:35→20:15)
[2017-04-25] MEDS: CIPROFLOXACIN 500 MG TAB PO SCH ×2 (13:35→20:16)
[2017-04-25] MEDS ORDERED: ERGOCALCIFEROL 50,000 INTER.UNIT CAP PO SCH (16:00)
[2017-04-25 16:21] VITALS: BP 88/56; PULSE 79; TEMP 36.7; O2SAT 97
--- NOTE | 2017-04-25 19:28 | Progress Note ---
Subjective Date of Service: Apr 25, 2017. Subjective Pt evaluation today including: conversation w/ patient, physical exam, chart review, lab review, review of studies (CT abd/pelvis), review of inpatient medication list Pain: minimal abdominal pain PO Intake: very poor - both liquids & solids Voiding: no voiding problems had 2 loose stools this am at least 10 pounds of weight loss in the last 1-2 months feels tired "I just have no appetite" Problem List Medical Problems: (1) Cachexia Status: Acute (2) Colitis Status: Acute (3) Dehydration Status: Acute (4) Failure to thrive Status: Acute (5) Malnutrition Status: Acute Review of Systems Constitutional: No fever Respiratory: No shortness of breath Cardiac: No chest pain Abdomen: + pain, + diarrhea, No nausea, No vomiting, No constipation Male : No dysuria Objective Vital Signs Date Time Temp Pulse Resp B/P (MAP) Pulse Ox O2 Delivery O2 Flow Rate FiO2 04/25/17 16:21 36.7 79 20 88/56 (67) 97 Room Air 04/25/17 09:10 95 Room Air 04/25/17 08:00 95 Room Air 04/25/17 08:00 36.4 64 21 115/66 (82) 95 Room Air 04/25/17 07:49 36.6 70 16 121/73 (89) 96 Room Air 04/25/17 00:43 36.4 62 16 105/65 (78) 94 Room Air 04/25/17 00:00 Room Air Physical Exam General Appearance: + cachetic, + thin ENT: + pertinent finding (MM dry ) Neck: no JVD Respiratory/Chest: lungs clear, no respiratory distress, no accessory muscle use Cardiovascular: regular rate, rhythm, no gallop, no murmur Abdomen: normal bowel sounds, non tender, soft, no organomegaly Extremities: no pedal edema Neurologic/Psychiatric: alert, oriented x 3 Skin: no rash Laboratory Results Last 24 Hours Test 04/25/17 05:08 04/25/17 11:57 04/25/17 11:58 Sodium Level 146 mmol/L Potassium Level 3.7 mmol/L Chloride Level 114 mmol/L Carbon Dioxide Level 29 mmol/L Anion Gap 3.0 mmol/L Blood Urea Nitrogen 17 mg/dl Creatinine 0.83 mg/dl Est Creatinine Clear Calc Drug Dose 44.5 ml/min Estimated GFR () 90.4 Estimated GFR (Non- 78.0 BUN/Creatinine Ratio 20.6 Random Glucose 131 mg/dl Calcium Level 7.9 mg/dl Erythrocyte Sedimentation Rate 23 mm/hr Iron Level 55 mcg/dl Total Iron Binding Capacity 154 mcg/dl Transferrin 124 mg/dl Transferrin % Saturation 32 % Ferritin 236.8 ng/ml C-Reactive Protein 0.86 mg/dl 25-Hydroxy Vitamin D Total 17.2 ng/ml Folate 9.66 ng/mL Assessment and Plan 89yo male - 1. colitis - etiology uncertain. Ulcerative colitis? Ischemic? Cancer? C. diff and stool cx neg. Send giardia and O/P. Will put back on cipro/flagyl. If this is UC should respond to steroids. Will go back to IV solumedrol. 2. severe protein calorie malnutrition - boost bid w/ meals MVI remeron should help appetite 3. weight loss - etiology uncertain. Could be GI in origin - recurrent colon ca vs UC. Could be in origin - h/o prostate ca. other occult malignancy possible. patient not interested in extensive w/u. 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 5. hypernatremic dehydration - restart IVF with hypotonic saline. 6. DVT proph - heparin BID. 7. FEN - restart fluids, BMP in am. 8. depression - remeron. dispo - [facility] ([facility]) will update family Continued [facility] stay due to: multiple IV medications needed Discharge planning: other ([facility] )
[2017-04-25] MEDS: MIRTAZAPINE TAB 15 MG TAB PO SCH (20:17)
[2017-04-26] VITALS: BP 105/68; PULSE 81; TEMP 36.4; O2SAT 95
[2017-04-26] MEDS: METHYLPREDNISOLONE IV 20 MG in SYRINGE 0 ML IV SCH ×3 (04:45→23:57)
[2017-04-26 07:40] LABS: BLOOD UREA NITROGEN 19 mg/dl (7-18); BUN/CREATININE RATIO 24.2 (10-20); CARBON DIOXIDE 26 mmol/L (21-32); CHLORIDE 110 mmol/L (98-107); CREATININE 0.77 mg/dl (0.60-1.40); GLUCOSE 148 mg/dl (70-99); POTASSIUM 4.1 mmol/L (3.5-5.1); SODIUM 141 mmol/L (136-145)
[2017-04-26 07:45] VITALS: BP 105/65; PULSE 77; TEMP 36.4; O2SAT 96
[2017-04-26 07:45] LABS: PROSTATE SPECIFIC ANTIGEN < 0.010 ng/ml (0.000-4.000)
[2017-04-26 08:00] VITALS: O2SAT 95
[2017-04-26] MEDS: POTASSIUM CHLORIDE 20 MEQ TABCR PO SCH (08:13)
[2017-04-26] MEDS: CIPROFLOXACIN 500 MG TAB PO SCH ×2 (08:13→20:33)
[2017-04-26] MEDS: PANTOprazole SOD 40 MG TAB PO SCH (08:14)
[2017-04-26] MEDS: METRONIDAZOLE 500 MG TAB PO SCH ×3 (08:14→20:33)
[2017-04-26] MEDS: ASPIRIN 81 MG ECTAB PO SCH (08:14)
[2017-04-26] MEDS: ATORVASTATIN 10 MG TAB PO SCH (08:14)
[2017-04-26] MEDS: METOPROLOL SUCC 25MG EXT REL TAB PO SCH (08:15)
[2017-04-26] MEDS: HEPARIN SOD 5000 UNIT/0.5 ML CARP SQ SCH ×2 (08:19→20:37)
[2017-04-26] MEDS: BOOST VANILLA PO SCH ×4 (08:20→17:00)
[2017-04-26] MEDS: CEROVITE ADV FORMULA TAB PO SCH (14:10)
[2017-04-26 14:46] VITALS: BP 121/69; PULSE 59; TEMP 36.5; O2SAT 97
[2017-04-26] MEDS: MIRTAZAPINE TAB 15 MG TAB PO SCH (20:34)
--- NOTE | 2017-04-26 23:48 | Progress Note ---
Subjective Date of Service: Apr 26, 2017. Subjective Pt evaluation today including: conversation w/ patient, physical exam, chart review, lab review, conversation w/ home care consultant (GI by phone), review of inpatient medication list Pain: mild abdominal pain, mainly left sided PO Intake: poor per patient, but staff report >50% of meals Voiding: no voiding problems patient still with poor po intake - both liquids/solids reports ongoing diarrhea and what sounds like bright red blood denies vomiting Problem List Medical Problems: (1) Cachexia Status: Acute (2) Colitis Status: Acute (3) Dehydration Status: Acute (4) Failure to thrive Status: Acute (5) Malnutrition Status: Acute Review of Systems Respiratory: No shortness of breath Cardiac: No chest pain Psychiatric: + depression symptoms Objective Vital Signs Date Time Temp Pulse Resp B/P (MAP) Pulse Ox O2 Delivery O2 Flow Rate FiO2 04/26/17 19:43 Room Air 04/26/17 14:46 36.5 59 18 121/69 (86) 97 Room Air 04/26/17 08:00 95 Room Air 04/26/17 07:45 36.4 77 18 105/65 (78) 96 Room Air 04/26/17 00:15 Room Air 04/26/17 00:00 36.4 81 18 105/68 (80) 95 Room Air Physical Exam General Appearance: no apparent distress, + cachetic, + thin ENT: pharynx normal Neck: no JVD Respiratory/Chest: lungs clear, no respiratory distress, no accessory muscle use Cardiovascular: regular rate, rhythm, no gallop, no murmur Abdomen: normal bowel sounds, soft, no organomegaly, + tenderness (LUQ/LLQ), + pertinent finding (prominent aortic impulse and enlarged aorta) Extremities: no pedal edema Neurologic/Psychiatric: alert, oriented x 3, + depressed affect Comments: rectal - hemorrhoids present but not tender or bleeding; no gross blood; no fecal impaction; no masses Laboratory Results Last 24 Hours Test 04/26/17 06:46 Sodium Level 141 mmol/L Potassium Level 4.1 mmol/L Chloride Level 110 mmol/L Carbon Dioxide Level 26 mmol/L Anion Gap 5.0 mmol/L Blood Urea Nitrogen 19 mg/dl Creatinine 0.77 mg/dl Est Creatinine Clear Calc Drug Dose 48.0 ml/min Estimated GFR () 93.2 Estimated GFR (Non- 80.5 BUN/Creatinine Ratio 24.2 Random Glucose 148 mg/dl Calcium Level 8.0 mg/dl Prostate Specific Antigen < 0.010 ng/ml Assessment and Plan 89yo male - 1. colitis - ongoing and not improved. etiology uncertain. Ulcerative colitis? Ischemic? Cancer? C. diff and stool cx neg. giardia and O/P pending. complete course of cipro/flagyl. cont solumedrol 20mg q12h. spoke with GI who will see him tomorrow for any further recommendations. 2. severe protein calorie malnutrition - boost bid w/ meals MVI remeron should help appetite 3. weight loss - etiology uncertain. Could be GI in origin - recurrent colon ca vs UC. Doubt prostate ca - PSA 0 other occult malignancy possible. patient not interested in extensive w/u. 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 5. hypernatremic dehydration - resolved, BMP stable today. 6. DVT proph - heparin BID. 7. FEN - BMP am, diet as tolerated. 8. depression - remeron. [facility]po [facility]) no d/c today due to very poor oral intake Continued [facility] stay due to: multiple IV medications needed Discharge planning: other ([facility] )
[2017-04-27] VITALS (7 sets, daily range): BP systolic 98–113; BP diastolic 52–68; PULSE 58–71; TEMP 36.3–36.8; O2SAT 95–96
[2017-04-27 07:43] LABS: HEMATOCRIT 34.8 % (42-52); MEAN CELL VOLUME 96.1 fL (80-100); MEAN CORPUSCULAR HEMOGLOBIN 30.7 pg (25-34); MEAN CORPUSCULAR HGB CONC 31.9 g/dl (32-36); PLATELET COUNT 479 K/uL (130-400); RED BLOOD COUNT 3.62 M/uL (4.7-6.1); WHITE BLOOD COUNT 5.93 K/uL (4.8-10.8)
[2017-04-27 08:18] LABS: BUN/CREATININE RATIO 21.8 (10-20); CALCIUM 8.2 mg/dl (8.5-10.1); CREATININE 0.79 mg/dl (0.60-1.40); MAGNESIUM 2.4 mg/dl (1.8-2.4); POTASSIUM 4.1 mmol/L (3.5-5.1)
[2017-04-27] MEDS: ASPIRIN 81 MG ECTAB PO SCH (08:30)
[2017-04-27] MEDS: ATORVASTATIN 10 MG TAB PO SCH (08:30)
[2017-04-27] MEDS: METRONIDAZOLE 500 MG TAB PO SCH ×3 (08:31→20:59)
[2017-04-27] MEDS: POTASSIUM CHLORIDE 20 MEQ TABCR PO SCH (08:31)
[2017-04-27] MEDS: PANTOprazole SOD 40 MG TAB PO SCH (08:31)
[2017-04-27] MEDS: CEROVITE ADV FORMULA TAB PO SCH (08:31)
[2017-04-27] MEDS: CIPROFLOXACIN 500 MG TAB PO SCH ×2 (08:31→20:59)
[2017-04-27] MEDS: METOPROLOL SUCC 25MG EXT REL TAB PO SCH (08:32)
[2017-04-27] MEDS: HEPARIN SOD 5000 UNIT/0.5 ML CARP SQ SCH ×2 (08:36→21:00)
[2017-04-27] MEDS: BOOST VANILLA PO SCH ×4 (09:00→16:39)
--- NOTE | 2017-04-27 09:18 | Gastroenterology Progress Note ---
Progress Note Date of Service: Apr 27, 2017 Subjective Pt evaluation today including: conversation w/ patient, physical exam, chart review, review of inpatient medication list Patient is a rather vague historian. States he is no longer having any abdominal pain and is not having frequent bowel movements but is passing some blood with stools. Per nursing documentation, it appears he has been noted to have 2-3 bms per day over the past 48 hours. H&H has improved slightly and is ~ 11. Continues IV corticosteroids and antibiotics. Stool studies for O&P are pending. Cx and C diff were negative. Discussed possibility of colonoscopy with the patient and he states "I don't know about that". He would not clearly consent or decline despite asking several times. Review of Systems Constitutional: + fatigue, No fever, No chills Respiratory: No problem reported Cardiac: No problem reported Abdomen: + see HPI Psych: No problem reported Medications Current Inpatient Medications Medications (Trade) Dose Ordered Sig/Joey Route Start Time Stop Time Status Last Admin Dose Admin Heparin Sodium (Porcine) (Heparin Sq 5000 Unit/0.5ml) 5,000 unit Q12 SQ 04/18/17 21:00 05/18/17 20:59 04/27/17 08:36 5,000 UNIT Acetaminophen (Tylenol Tab) 650 mg Q4H PRN PO 04/18/17 14:00 05/18/17 13:59 04/24/17 20:29 650 MG Al Hydrox/Mg Hydrox/Simethicone (Maalox Max Susp) 15 ml Q4H PRN PO 04/18/17 14:00 05/18/17 13:59 Magnesium Hydroxide (Milk Of Magnesia Susp) 30 ml Q12H PRN PO 04/18/17 14:00 05/18/17 13:59 Aspirin (Ecotrin Tab) 81 mg QAM PO 04/19/17 09:00 05/19/17 08:59 04/27/17 08:30 81 MG Metoprolol Succinate (Toprol Xl Tab) 25 mg DAILY PO 04/19/17 09:00 05/19/17 08:59 04/26/17 08:15 25 MG Atorvastatin Calcium (Lipitor Tab) 10 mg QAM PO 04/18/17 16:00 05/18/17 15:59 04/27/17 08:30 10 MG Enteral Nutritional Formula (Boost) 1 can BID17 PO 04/20/17 17:00 05/20/17 16:59 04/25/17 08:46 1 CAN Potassium Chloride (Klor-Con Tab) 20 meq QAM PO 04/21/17 09:00 05/21/17 08:59 04/27/17 08:31 20 MEQ Pantoprazole Sodium (Protonix Tab) 40 mg QAM PO 04/22/17 09:00 05/22/17 08:59 04/27/17 08:31 40 MG Loperamide HCl (Imodium Cap) 2 mg Q6 PRN PO 04/22/17 11:45 05/22/17 11:44 Mirtazapine (Remeron Tab) 15 mg HS PO 04/22/17 21:00 05/22/17 20:59 04/26/17 20:34 15 MG Prednisone (PredniSONE TAB) 20 mg QAM PO 04/24/17 09:00 05/24/17 08:59 Future Hold 04/25/17 08:40 20 MG Multivitamins/ Minerals (Multivitamin W/ Minerals Tab) 1 tab QAM PO 04/25/17 11:00 05/25/17 10:59 04/27/17 08:31 1 TAB Ciprofloxacin (Cipro Tab) 500 mg BID PO 04/25/17 11:30 05/05/17 11:29 04/27/17 08:31 500 MG Metronidazole (Flagyl Tab) 500 mg TID PO 04/25/17 14:00 05/05/17 13:59 04/27/17 08:31 500 MG Ergocalciferol (Vitamin D Cap) 50,000 interunit MoFr@0900 PO 04/25/17 16:00 05/25/17 15:59 04/25/17 16:57 50,000 INTERUNIT Methylprednisolone Sodium Succinate 20 mg/Syringe 0.32 ml @ 1.5 mls/min Q12H IV 04/27/17 00:00 05/25/17 11:59 04/26/17 23:57 1.5 MLS/MIN Objective Vital Signs Date Time Temp Pulse Resp B/P (MAP) Pulse Ox O2 Delivery O2 Flow Rate FiO2 04/27/17 08:07 36.5 58 18 110/52 (71) 95 Room Air 04/27/17 07:29 36.3 71 18 113/67 (82) 96 Room Air 04/27/17 00:36 36.7 70 20 105/68 (80) 95 Room Air 04/26/17 23:50 Room Air 04/26/17 19:43 Room Air 04/26/17 14:46 36.5 59 18 121/69 (86) 97 Room Air Physical Exam General Appearance: no apparent distress Eyes: EOMI Respiratory/Chest: lungs clear, normal breath sounds, no respiratory distress Cardiovascular: regular rate, rhythm, no gallop Abdomen: normal bowel sounds, non tender, soft Neurologic/Psych: alert, normal mood/affect, oriented x 3 Laboratory Results Last 24 Hours Test 04/27/17 07:06 White Blood Count 5.93 K/uL Red Blood Count 3.62 M/uL Hemoglobin 11.1 g/dL Hematocrit 34.8 % Mean Corpuscular Volume 96.1 fL Mean Corpuscular Hemoglobin 30.7 pg Mean Corpuscular Hemoglobin Concent 31.9 g/dl RDW Standard Deviation 52.8 fL RDW Coefficient of Variation 15.2 % Platelet Count 479 K/uL Mean Platelet Volume 9.0 fL Sodium Level 139 mmol/L Potassium Level 4.1 mmol/L Chloride Level 109 mmol/L Carbon Dioxide Level 26 mmol/L Anion Gap 4.0 mmol/L Blood Urea Nitrogen 17 mg/dl Creatinine 0.79 mg/dl Est Creatinine Clear Calc Drug Dose 46.8 ml/min Estimated GFR () 92.3 Estimated GFR (Non- 79.6 BUN/Creatinine Ratio 21.8 Random Glucose 144 mg/dl Calcium Level 8.2 mg/dl Magnesium Level 2.4 mg/dl Assessment and Plan Patient is an 89 yo male with nonspecific colitis with persistent although mild symptoms of diarrhea and rectal bleeding. 1. Did convert patient to a clear liquid diet although he did not clearly consent to a colonoscopy. 2. Continue corticosteroid and antibiotic therapy. 3. Supportive care per primary team. 4. Will plan for colonoscopy prep this evening if patient consents to testing. Agree with CHAY Valerio Abd: Soft, NT, ND, +BS Patient is unsure about having a colonoscopy, and I believe he cannot adequately provide consent. I did discuss the case with the POA Lona Sparks, his [id number] and she states that her and her who share POA absolutely do not want any invasive testing. Complete a 10 day course of Cipro/Flagyl Recommend Prednisone Taper 40mg by mouth daily for 1 week, then 35mg by mouth daily for 1 week, then 30mg by mouth daily for 1 week then decrease by 5 mg weekly for 8 week total taper.
[2017-04-27] MEDS: METHYLPREDNISOLONE IV 20 MG in SYRINGE 0 ML IV SCH ×2 (14:11→23:43)
--- NOTE | 2017-04-27 20:46 | Progress Note ---
Subjective Date of Service: Apr 27, 2017. Subjective Pt evaluation today including: conversation w/ patient, conversation w/ family , physical exam, chart review, lab review Pain: left lower costal margin, LUQ PO Intake: very poor; refusing boost Voiding: no voiding problems patient offered colonoscopy by GI - he is "still thinking about it" but leaning towards NOT having it he states "I just want to go home" staff report ongoing diarrhea mixed with flecks of blood no vomiting drinking is poor Problem List Medical Problems: (1) Cachexia Status: Acute (2) Colitis Status: Acute (3) Dehydration Status: Acute (4) Failure to thrive Status: Acute (5) Malnutrition Status: Acute Review of Systems Constitutional: No fever Respiratory: No shortness of breath Cardiac: No orthopnea, No PND, No edema Abdomen: + pain, No nausea, No vomiting Objective Vital Signs Date Time Temp Pulse Resp B/P (MAP) Pulse Ox O2 Delivery O2 Flow Rate FiO2 04/27/17 17:17 Room Air 04/27/17 16:10 36.8 68 20 100/55 (70) 96 Room Air 04/27/17 09:50 95 Room Air 04/27/17 08:07 36.5 58 18 110/52 (71) 95 Room Air 04/27/17 08:00 95 Room Air 04/27/17 07:29 36.3 71 18 113/67 (82) 96 Room Air 04/27/17 00:36 36.7 70 20 105/68 (80) 95 Room Air 04/26/17 23:50 Room Air Physical Exam General Appearance: no apparent distress, + cachetic ENT: + pertinent finding (MM dry) Neck: no JVD Respiratory/Chest: lungs clear, no respiratory distress, no accessory muscle use Cardiovascular: regular rate, rhythm, no gallop, no murmur Abdomen: normal bowel sounds, non tender, soft, no organomegaly, + pertinent finding (AAA present and palpable with prominent pulsation) Extremities: no pedal edema Neurologic/Psychiatric: alert, oriented x 3, + depressed affect Laboratory Results Last 24 Hours Test 04/27/17 07:06 White Blood Count 5.93 K/uL Red Blood Count 3.62 M/uL Hemoglobin 11.1 g/dL Hematocrit 34.8 % Mean Corpuscular Volume 96.1 fL Mean Corpuscular Hemoglobin 30.7 pg Mean Corpuscular Hemoglobin Concent 31.9 g/dl RDW Standard Deviation 52.8 fL RDW Coefficient of Variation 15.2 % Platelet Count 479 K/uL Mean Platelet Volume 9.0 fL Sodium Level 139 mmol/L Potassium Level 4.1 mmol/L Chloride Level 109 mmol/L Carbon Dioxide Level 26 mmol/L Anion Gap 4.0 mmol/L Blood Urea Nitrogen 17 mg/dl Creatinine 0.79 mg/dl Est Creatinine Clear Calc Drug Dose 46.8 ml/min Estimated GFR () 92.3 Estimated GFR (Non- 79.6 BUN/Creatinine Ratio 21.8 Random Glucose 144 mg/dl Calcium Level 8.2 mg/dl Magnesium Level 2.4 mg/dl Assessment and Plan 89yo male - 1. colitis - ongoing, +/- improved by way of frequency of stools, etc. etiology uncertain. Ulcerative colitis? Ischemic? Cancer? C. diff and stool cx neg. giardia and O/P pending. complete course of cipro/flagyl. cont solumedrol 20mg q12h. colonoscopy offered by GI - he will discuss this with his son I counseled him that if he elects to proceed with c-scope we would prep him tonight if he declines then, quite frankly, we may need to consider hospice given his severe failure to thrive, lack of appetite, etc 2. severe protein calorie malnutrition - boost bid w/ meals MVI remeron hopefully will help appetite 3. weight loss - etiology uncertain. Could be GI in origin - recurrent colon ca vs UC. Doubt prostate ca - PSA 0 other occult malignancy possible. patient not interested in extensive w/u. 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 5. hypernatremic dehydration - resolved. 6. DVT proph - heparin BID. 7. FEN - diet continues to be poor even despite remeron & steroids. Lytes stable. 8. depression - remeron. dispo - [facility] ([facility]) if patient declines c-scope I may talk with him & and his family about hospice Continued [facility] stay due to: inadequate po fluid intake, ambulation difficulties , multiple IV medications needed Discharge planning: other ([facility] )
[2017-04-27] MEDS: MIRTAZAPINE TAB 15 MG TAB PO SCH (20:59)
[2017-04-28 07:47] VITALS: BP 109/71; PULSE 72; TEMP 36.4; O2SAT 95
[2017-04-28 08:00] VITALS: O2SAT 95
[2017-04-28] MEDS: METRONIDAZOLE 500 MG TAB PO SCH ×2 (08:39→13:36)
[2017-04-28] MEDS: HEPARIN SOD 5000 UNIT/0.5 ML CARP SQ SCH (08:39)
[2017-04-28] MEDS: CIPROFLOXACIN 500 MG TAB PO SCH (08:39)
[2017-04-28] MEDS: ATORVASTATIN 10 MG TAB PO SCH (08:40)
[2017-04-28] MEDS: PANTOprazole SOD 40 MG TAB PO SCH (08:40)
[2017-04-28] MEDS: ASPIRIN 81 MG ECTAB PO SCH (08:40)
[2017-04-28] MEDS: CEROVITE ADV FORMULA TAB PO SCH (08:40)
[2017-04-28] MEDS: METOPROLOL SUCC 25MG EXT REL TAB PO SCH (08:40)
[2017-04-28] MEDS: POTASSIUM CHLORIDE 20 MEQ TABCR PO SCH (08:41)
[2017-04-28] MEDS: BOOST VANILLA PO SCH ×2 (09:00)
[2017-04-28] MEDS ORDERED: HYDR-5688 PO (12:12)
[2017-04-28] MEDS ORDERED: ERGO1CAP41 PO (12:12)
[2017-04-28] MEDS ORDERED: CNT PO (12:12)
[2017-04-28] MEDS ORDERED: IMD2X PO (12:12)
[2017-04-28] MEDS ORDERED: Boost PO (12:12)
[2017-04-28] MEDS ORDERED: PRED10TA PO (12:12)
[2017-04-28] MEDS ORDERED: RMR15 PO (12:12)
[2017-04-28 12:18] VITALS: TEMP 36.4; O2SAT 95
--- NOTE | 2017-04-28 12:20 | Discharge Instructions ---
Discharge Instructions Date of Service Apr 28, 2017. Admission Reason for Admission: Colitis Discharge Discharge Diagnosis / Problem: weight loss, poor appetitite, colitis Discharge Goals Goal(s): Learn about illness, Diagnostic testing, Therapeutic intervention Activity Recommendations Activity Limitations: resume your previous activity (as tolerated) . Instructions / Follow-Up Instructions / Follow-Up From Dr. Shabazz - 1. At time of discharge we are uncertain as to the cause of your colitis which is giving you abdominal pain, diarrhea, blood in the stool, and likely weight loss. It does not appear to be infection as your stool cultures were negative and you didn't improve greatly on antibiotics. Possibilities include ulcerative colitis, ischemic colitis (poor blood flow to the colon), cancer, etc. I recommend the following - * hydrocodone pain medication, 1/2 tab - 1 full tab every 4 hours as needed for pain * prednisone course - start this tomorrow on 04/29/17 * if your diarrhea, blood in the stool, etc does not improve in the next 7 days or so I would stop the prednisone completely * if the GI symptoms DO improve on prednisone you can continue the prednisone for a total of 20 days * immodium every 3 hours as needed for diarrhea 2. For your depression and to boost your appetite please take remeron ( mirtazapine) 15mg once daily at bedtime. 3. I would stop your metoprolol blood pressure medication at this time as your blood pressure is running low. 4. Please contact the HOSPICE agency [facility] for any questions, needs, concerns, uncontrolled pain, uncontrolled diarrhea, or any other issue. They will be able to address the vast majority of your symptoms and concerns at [facility]. 5. Please see Dr. Restrepo within about 1 week. Take good care! -Dr. Shabazz Current Hospital Diet Patient's current hospital diet: Low Fiber Diet, Low Lactose Diet Discharge Diet Recommended Diet: Low Fiber Diet Procedures Procedures Performed: CAT scan of abdomen showing colitis Pending Studies Studies pending at discharge: yes List of pending studies: stool test for parasites Laboratory Results Lipid Panel Test 04/18/17 10:55 Range/Units Triglycerides Level 109 0-150 mg/dl Cholesterol Level 75 0-200 mg/dl HDL Cholesterol 23 mg/dl Cholesterol/HDL Ratio 3.3 LDL Cholesterol, Calculated 30 mg/dl Medical Emergencies . Who to Call and When: Medical Emergencies: If at any time you feel your situation is an emergency, please call 911 immediately. . Non-Emergent Contact Non-Emergency issues call your: Primary Care Provider, Specialist (HOSPICE) Call Non-Emergent contact if: temperature is above 100.5, your pain is not controlled, your pain is worsening, you have any medication questions . . "Provider Documentation" section prepared by Janusz Shabazz. . VTE Core Measure Inpt VTE Proph given/why not?: Unfractionated heparin SQ
[2017-04-28 13:34] VITALS: BP 109/71; PULSE 72; O2SAT 95
[2017-04-28] MEDS: METHYLPREDNISOLONE IV 20 MG in SYRINGE 0 ML IV SCH (13:36)
[2017-04-29 13:57] LABS: O&P GIARDIA AG NOT DETECTED (NOT DETECTED); O&P SOURCE OTHER-STOOL
--- NOTE | 2017-05-03 22:38 | Discharge Summary ---
Discharge Summary Date of Service May 03, 2017. Discharge Summary Admission Date: Apr 18, 2017 at 13:59 Discharge Date: Apr 28, 2017 Discharge Disposition: Personal care ([facility] - With hospice services. ) Principal Diagnosis: colitis, etiology uncertain Problems/Secondary Diagnoses: 1. severe protein calorie malnutrition 2. failure to thrive 3. depression 4. AAA 5. h/o ulcerative colitis 6. h/o colon cancer s/p resection 7. CKD stage 3-4 8. hypernatremic dehydration 9. vitamin D deficiency Immunizations: Have You Had Influenza Vaccine: Yes Influenza Vaccine Date: May 16, 2010 History of Tetanus Vaccine?: No History of Pneumococcal: No History of Hepatitis B Vaccine: No Procedures: CT abd/pelvis - IMPRESSION: 1. Moderate circumferential wall thickening with mucosal hyperemia and surrounding inflammatory stranding involving the majority of the colon, greatest within the descending and sigmoid portions is compatible with colitis, likely from infectious or inflammatory etiology. Associated air-fluid levels throughout the colon suggests concomitant diarrheal state. 2. No pneumoperitoneum or bowel obstruction. 3. 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 This appears stable from comparison study 01/21/2017. 4. Prior right hemicolectomy with ileocolic anastomosis. 5. Additional incidental findings as above. Consultations: cardiology gastroenterology psychiatry PT, OT Medication Reconciliation New Medications: Hydrocodone/Acetaminophen 5MG/325MG ([place] 5MG/325MG) Tab 0.5-1 TABLET PO Q4H PRN for Pain, #45 TAB 0 Refills Prednisone Tab (Prednisone) 10 Mg Tab 10 MG PO DIRECTED, #60 TAB 0 Refills start 04/29/17 - 4 tabs QD for 5 days, 3 tabs QD for 5 days, then 2 tabs QD for 5 days, then 1 tab QD for 5 days. Ergocalciferol (Vitamin D 57628 Unit) 50,000 Unit Cap 25733 INTERUNIT PO once weekly, #8 CAP 0 Refills Loperamide Hcl (Imodium) 2 Mg Cap 2 MG PO Q6 PRN for Diarrhea, #30 CAP 1 Refill max 8 tabs in 24 hours Mirtazapine (Mirtazapine) 15 Mg Tab 15 MG PO HS, #30 TAB 5 Refills for depression & to help appetite Multivitamins/Minerals (Certavite/Antioxidants) 1 Tab Tab 1 TAB PO QAM, #30 TAB 5 Refills [Boost] () 1 CAN LIQD 1 CAN PO BID, #60 CAN 5 Refills Discontinued Medications: Metoprolol Succinate (Metoprolol Succinate ER) 25 Mg Tabcr 25 MG PO DAILY Discharge Exam Physical Exam: General Appearance: no apparent distress, + cachetic ENT: pharynx normal Neck: no JVD Respiratory/Chest: lungs clear, no respiratory distress, no accessory muscle use Cardiovascular: regular rate, rhythm, no gallop, + systolic murmur (1/6 murmur RUSB) Abdomen / GI: normal bowel sounds, non tender, soft, no organomegaly, + mass (AAA- very prominent pulsation) Extremities: no pedal edema Neurologic/Psychiatric: alert, oriented x 3, + depressed affect Skin: no rash Hospital Course HISTORY OF PRESENT ILLNESS: 11-year-old male with past medical history of the ulcerative colitis in the 1970s colon cancer in 2003 status post resection, 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 Patient also has history of prostate cancer status post seeding. [place]. About 1 week ago he was taking to ER due to change in color of the urine. Initial workup was negative and he was advised to drink more fluids and eat as much as he can. Daughter reported that he has been going to the bathroom with diarrhea about 10 times every day for the past month. no blood in stool was detected. Stool C. difficile and stool cultures were negative on April 15. In the ED patient is a poor historian due to Dementia. His daughter at his bedside she was giving all the history. ED physician requested a CT and abdomen with contrast that revealed thickened colon wall wall/colitis. Patient will be admitted for further evaluation and management/IV hydration. HOSPITAL COURSE: The patient was initially treated with empiric antibiotic therapy for his colitis. Despite such he made little improvement. Stool culture, c. diff toxin, giardia, and ova/parasite stool studies were all negative. He was seen by [facility] who offered him colonoscopy to determine the cause of his severe weight loss, abdominal pain, blood per rectum , and ongoing diarrhea. On several occasions he declined the colonoscopy. Later on in his stay he was placed on steroids in the event his GI symptoms were from ulcerative colitis. Much like the antibiotics he experienced little improvement in his diarrhea/ blood per rectum with the steroids. [id number] he will discharge on a steroid taper. Instructions were given as follows - * if there is no clinical improvement from a GI standpoint within 1 week then he will stop the steroids * if there IS clinical improvement he will take a longer taper of prednisone In addition to the above the patient expressed symptoms of severe major depression. He was seen in consult by psychiatry who recommended remeron. Given his lack of improvement in his GI symptoms, lack of improvement in his appetite, and desire for NO invasive procedures or work-up I discussed hospice with him in detail. He was agreeable to such upon admission to [facility]. POLST form was also completed prior to discharge; he opted for DNR status. Total Time Spent: Greater than 30 minutes This includes examination of the patient, discharge planning, medication reconciliation, and communication with other providers. Discharge Instructions Please refer to the electronic Patient Visit Report (Discharge Instructions) for additional information. Follow-Up follow-up with Hospice at [facility] Additional Copies To Jn Restrepo M.D.
== END 2017-04-28 14:18 | disposition hospice, inpatient (51) | DRG 391 ==
LOC: C.EDB 10:24 → C.2T 13:59 → ENRESERV 14:03 → C.MS2W 04-20 11:08
PROVIDERS: ADMIT Internal Medicine; ATTEND Internal Medicine
DX: K52.9 Noninfective gastroenteritis and colitis, unspecified (principal); E43 Unspecified severe protein-calorie malnutrition; R64 Cachexia; Z68.1 Body mass index [BMI] 19.9 or less, adult; E87.0 Hyperosmolality and hypernatremia; N18.4 Chronic kidney disease, stage 4 (severe); E86.0 Dehydration; R62.7 Adult failure to thrive; F32.9 Major depressive disorder, single episode, unspecified; E87.6 Hypokalemia; E83.39 Other disorders of phosphorus metabolism; E78.5 Hyperlipidemia, unspecified; R63.4 Abnormal weight loss; I71.4 Abdominal aortic aneurysm, without rupture; M19.90 Unspecified osteoarthritis, unspecified site; E55.9 Vitamin D deficiency, unspecified; Z51.81 Encounter for therapeutic drug level monitoring; Z79.899 Other long term (current) drug therapy; Z87.19 Personal history of other diseases of the digestive system; Z85.038 Personal history of other malignant neoplasm of large intestine; Z98.890 Other specified postprocedural states; Z85.46 Personal history of malignant neoplasm of prostate; Z87.891 Personal history of nicotine dependence; R79.89 Other specified abnormal findings of blood chemistry

== ENCOUNTER 2017-05-21 11:02 | Emergency (ER) | payer OTHER ==
[~2017-05-21] VITALS: Ht 170.2 cm; Wt 60.0 kg
[~2017-05-21 11:02] MED LIST changes: -AMOX875T PO; -DRGTP12 TD; -TPRSR/25 PO
[2017-05-21 11:13] VITALS: TEMP 36.7; Ht 170.2 cm; Wt 60.0 kg
[2017-05-21] MEDS ORDERED: AMOXICILLIN/CLAVULANATE TAB 875 MG TAB PO ONE (11:45)
--- NOTE | 2017-05-21 11:47 | EMERGENCY ROOM VISIT NOTE ---
History Report prepared by Martha: Claude Mishra Under the Supervision of: Dr. Lm Man M.D. First contact with patient: 11:27 Chief Complaint: FALL Stated Complaint: FELL History of Present Illness The patient is a 89 year old male who presents to the Emergency Room with complaints of fall that occurred [employer]IA[employer]. He has a history of chronic diarrhea, colon cancer, and hypotension. Secondary to these conditions, he has lost a lot of weight recently and is now on hospice because of his conditions. The patient' s status is DNR and DNI. Earlier this morning, the patient experienced a fall. He landed on his face. He does not remember the fall and does not know if he lost consciousness. He notes epistaxis after his fall. He denies any visual changes. He has been eating significantly better since he was placed in a personal skilled nursing. He is experiencing dizziness as well. He denies any fevers. He has a pain patch for his lower back pain. His [id number] notes some leg swelling, which is abnormal. Source of History: patient, family Onset: Earlier this morning Position: other (Global) Symptom Intensity: moderate Quality: other (Trauma) Timing: constant Associated Symptoms: No fevers Note: The patient does not remember the fall and does not know if he lost consciousness. He has trauma to the nose and face. He is experiencing dizziness and bilateral leg swelling. He denies any vision changes. Review of Systems See HPI for pertinent positives & negatives. A total of 10 systems reviewed and were otherwise negative. Past Medical & Surgical Medical Problems: (1) Cataract Nos (2) colitis (3) Diverticulosis Colon (W/O Ment Of Hemorrhage) (4) Hx-Prostatic Malignancy (5) Ulcerative Colitis, Unspecified Family History Omitted secondary to the patient's age. Social History Smoking Status: Former Smoker Smokeless Tobacco Use: No Drug Use: none Marital Status: Housing Status: lives alone Occupation Status: retired Current/Historical Medications Scheduled Amoxicillin & Pot Clavulanate (Augmentin 875-125 mg), 875 MG PO BID Ergocalciferol (Vitamin D 01882 Unit), 50,000 INTERUNIT PO once weekly Fentanyl (Fentanyl), 12 MCG TD [id number] Mirtazapine (Mirtazapine), 15 MG PO HS Multivitamins/Minerals (Certavite/Antioxidants), 1 TAB PO QAM [Boost], 1 CAN PO BID Scheduled PRN Hydrocodone/Acetaminophen 5MG/325MG (Santa Claus 5MG/325MG), 0.5-1 TABLET PO Q4H PRN for Pain Allergies Coded Allergies: No Known Allergies (Verified , 05/21/17) Physical Exam Vital Signs Date Time Temp Pulse Resp B/P (MAP) Pulse Ox O2 Delivery O2 Flow Rate FiO2 05/21/17 12:26 99 18 99/61 94 05/21/17 11:13 36.7 93 20 78/47 93 Room Air Physical Exam General: Cachectic appearing older male in no acute distress. HEENT: Normal cephalic. Large amount of swelling to the nose, more so on the left. Dried blood in the nares without active bleeding. No crepitus to the face. Pupils are equal round and reactive to light. Extraocular movements are intact. Able to look up without difficulty. Oropharynx is pink with moist mucous membranes. No swelling of the mouth lips or tongue. Neck: Supple with a midline trachea. No meningeal signs or stiffness, no JVD or bruits. No Stridor. Chest: Clear to auscultation bilaterally. No wheezes or rhonchi. No increased work of breathing. Heart: regular rate and rhythm. Abdomen: Soft nontender, nondistended without rebound guarding or rigidity. 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 Extremities: No cyanosis clubbing or edema. No calf tenderness or assymetry Spine/Back. Non tender to palpation. No CVA tenderness Skin: Good turgor without rashes. Skin tear to the right wrist. Neurologic exam: Cranial nerves two through 12 are intact. Motor and sensation are intact and symmetrical throughout. Medical Decision & Procedures Medications Administered Medications (Trade) Dose Ordered Sig/Joey Route Start Time Stop Time Status Last Admin Dose Admin Amoxicillin/ Clavulanate Potassium (Augmentin Tab) 875 mg ONE ONCE PO 05/21/17 11:45 05/21/17 11:46 DC 05/21/17 12:09 875 MG ED Course 1127: Past medical records reviewed. The patient was evaluated in room B2, and a complete history and physical examination were performed. 1145: Ordered Augmentin Tab 875 mg PO 1230: Upon reevaluation, the patient is resting. I discussed the results and treatment plan with him. He verbalized agreement of the treatment plan. The patient was discharged home. Medical Decision Differentials include, but are not limited to; facial fracture, anemia, and dehydration. This patient comes in as described above. He is on hospice and has had chronic diarrhea and other medical problems. He apparently fell today. He recently started a pain patch. he has a a swollen nose more so towards the left. I talked to his [id number] who is one of his power of molder setter and she says that he is on hospice and comfort measures only. She does not want any workup beyond hospice. The patient was noted to be hypotensive and has recent low blood pressure. he is very cachectic however. The daughter- in- law aknowledges that he is near the end of his life and again he is comfort measures only do not want blood work ,EKGs, etc. They just want his nose addressed. On exam , he has some dried blood in his nose but has no active bleeding. He has a normal neurologic exam given his age and conditions. There is some moderate swelling of the nose. I think he most likely did break it. At this point it's going to be pain management and antibiotics and ice. I told her we could get a CAT scan or x-ray but it would unlikely change acute management even at there is a fracture . He should apply ice intermittently and let the swelling go down and follow-up with the ear nose and throat or oral facial specialist. Unlikely would operate on him anyways given his hospice status. She agrees with this and does not want further imaging. I will put him on Augmentin antibiotic coverage as we typically do this for nasal fractures. this can also be considered palliative care as an infection would be painful. They are to sleep with the head elevated avoid blowing his nose, ice it intermittently , return if bleeding or worsening symptoms or any new problems or concerns and follow up with her doctor Tuesday for recheck. Follow- up with the ear, nose,t throat or oral facial specialist this coming week when the swelling goes down. Medication Reconcilliation Current Medication List: was personally reviewed by me Blood Pressure Screening Patient's blood pressure: Low blood pressure Impression Primary Impression: Facial fracture Additional Impression: Hospice care patient Scribe Attestation The scribe's documentation has been prepared under my direction and personally reviewed by me in its entirety. I confirm that the note above accurately reflects all work, treatment, procedures, and medical decision making performed by me. Departure Information Dispostion Home / Self-Care Prescriptions Amoxicillin & Pot Clavulanate (Augmentin 875-125 mg) 1 Tab Tab 875 MG PO BID for 10 Days, #20 TAB Prov: Lm Man M.D. 05/21/17 Referrals No Doctor, Assigned (PCP) Forms HOME CARE DOCUMENTATION FORM, IMPORTANT VISIT INFORMATION Patient Instructions My [facility] Additional Instructions Rest. Keep your head elevated particularly when you sleep Ice intermittently for 10 minutes at a time Avoid blowing your nose May use a oral decongestant like Sudafed if needed Use Augmentin 875 mg twice a day antibiotic You likely did break your nose you may need follow-up and further care when the swelling goes down this week. Have your doctor recheck you Problem Qualifiers
[2017-05-21] MEDS ORDERED: AMOX875T PO (11:49)
[2017-05-21] MEDS ORDERED: DRGTP12 TD (11:52)
[2017-05-21 12:26] VITALS: BP 99/61; PULSE 99; O2SAT 94
== END 2017-05-21 12:28 | disposition home or self-care (01) ==
LOC: C.EDB 11:03
DX: S02.92XA Unspecified fracture of facial bones, initial encounter for closed fracture (principal); W18.30XA Fall on same level, unspecified, initial encounter; R64 Cachexia; K52.9 Noninfective gastroenteritis and colitis, unspecified; I95.9 Hypotension, unspecified; H26.9 Unspecified cataract; K57.30 Diverticulosis of large intestine without perforation or abscess without bleeding; Z85.038 Personal history of other malignant neoplasm of large intestine; Z85.46 Personal history of malignant neoplasm of prostate; Z87.891 Personal history of nicotine dependence